=== PATIENT | male | born 1930 | race Caucasian/White ===

== ENCOUNTER 2017-05-04 16:36 | Inpatient (IN) | payer MEDICARE ==
[2017-05-04] VITALS (8 sets, daily range): BP systolic 140–183; BP diastolic 70–89; PULSE 82–93; RESP 16–22; TEMP 98.2–99.1; O2SAT 94–100
[~2017-05-04] VITALS: Ht 182.9 cm; Wt 75.9 kg
[2017-05-04 17:43] LABS: AUTOMATED NEUTROPHIL # 13.3 TH/MM3 (1.8-7.7); BASOPHIL % 0.1 % (0.0-2.0); EOSINOPHIL % 0.1 % (0.0-4.0); HEMATOCRIT 40.9 % (39.0-51.0); HEMO FLAGS DIFF FINAL; LYMPH % 2.7 % (9.0-44.0); LYMPHOCYTE # 0.4 TH/MM3 (1.0-4.8); MEAN CELL VOLUME 109.6 FL (80.0-100.0); MEAN CORPUSCULAR HEMOGLOBIN 35.9 PG (27.0-34.0); MEAN CORPUSCULAR HGB CONC 32.8 % (32.0-36.0); MONO % 6.5 % (0.0-8.0); NEUT % 90.6 % (16.0-70.0); PLATELET COUNT 206 TH/MM3 (150-450); RED BLOOD COUNT 3.73 MIL/MM3 (4.50-5.90); RED CELL DISTRIBUTION WIDTH 14.7 % (11.6-17.2); WHITE BLOOD COUNT 14.7 TH/MM3 (4.0-11.0)
[2017-05-04 17:55] LABS: APTT (PATIENT) 21.5 SEC (24.3-30.1)
[2017-05-04 18:10] LABS: BICARBONATE 15.6 MEQ/L (21.0-32.0)
[2017-05-04] MEDS ORDERED: SODIUM CHLOR 0.9% 1000 ML INJ 1,000 ML IV ONE ×3 (18:15→20:00)
--- NOTE | 2017-05-04 18:21 | PD ---
HPI Chief Complaint: Altered Mental Status Time Seen by Provider: 17:21 Travel History International Travel<30 days: No Contact w/Intl Traveler<30days: No Traveled to known affect area: No History of Present Illness HPI Elderly male who denies any PMH was brought in by [facility] after neighbors called and realize that his garbage had been building up. Pt was found lying prone on his carpet and apparently had been down for 8 days and was found in feces. Pt has broad abrasions on his face, chest, abdomen. Pt denies any complaints but is shivering and said he does not remember what happened. States he lives alone. He is AAOx2 and follows commands but appears very dehydrated. Denies any complaints. PFSH Past Medical History Medical History: Unable to Obtain Tetanus Vaccination: Unknown Past Surgical History Surgical History: Unable to Obtain Social History Alcohol Use: No (UNABLE TO ASSESS) Tobacco Use: No (UNABLE TO ASSESS) Substance Use: No Allergies-Medications (Allergen,Severity, Reaction): Coded Allergies: No Known Allergies (Verified Allergy, Unknown, 05/04/17) Reported Meds & Prescriptions Reported Meds & Active Scripts Active Active Prescriptions or Reported Medications Unobtainable Review of Systems Except as stated in HPI: all other systems reviewed are Neg Physical Exam Narrative GENERAL: Elderly male in mild distress. SKIN: Diffuse erythema and skin break down in chest, abdomen, bilateral ulcer in bilateral knees. Dehydrated. HEAD: Atraumatic. Normocephalic. EYES: Pupils equal and round. No scleral icterus. No injection or drainage. ENT: No nasal bleeding or discharge. Mucous membranes pink and moist. NECK: Trachea midline. No JVD. CARDIOVASCULAR: Regular rate and rhythm. No murmur appreciated. RESPIRATORY: No accessory muscle use. Clear to auscultation. Breath sounds equal bilaterally. GASTROINTESTINAL: Abdomen soft, non-tender, nondistended. MUSCULOSKELETAL: No obvious deformities. No clubbing. No cyanosis. No edema. NEUROLOGICAL: Awake and alert. Moving all extremities. AAOx2. Data Data Last Documented VS Vital Signs Date Time Temp Pulse Resp B/P (MAP) Pulse Ox O2 Delivery O2 Flow Rate FiO2 05/04/17 20:01 84 22 183/81 (115) 100 Nasal Cannula 2.00 05/04/17 17:35 99.1 Orders Orders Urinalysis - C+S If Indicated (05/04/17 17:21) Ct Brain W/O Iv Contrast(Rout) (05/04/17 17:21) Ct Cerv Spine W/O Contrast (05/04/17 17:21) Ct Abd/Pel W Iv Contrast(Rout) (05/04/17 17:21) Ct Thorax/ Chest W Iv Contrast (05/04/17 17:21) Ct Facial Bones W/O Iv Cont (05/04/17 17:21) Complete Blood Count With Diff (05/04/17 17:21) Basic Metabolic Panel (Bmp) (05/04/17 17:21) Prothrombin Time / Inr (Pt) (05/04/17 17:21) Act Partial Throm Time (Ptt) (05/04/17 17:21) Creatine Kinase (Cpk) (05/04/17 17:21) Troponin I (05/04/17 17:23) Electrocardiogram (05/04/17 ) Blood Culture (05/04/17 18:11) Lactic Acid Sepsis Protocol (05/04/17 18:11) Sodium Chlor 0.9% 1000 Ml Inj (Ns 1000 M (05/04/17 18:15) Protein Corrected Calcium(Pcc) (05/04/17 17:30) Sodium Chlor 0.9% 1000 Ml Inj (Ns 1000 M (05/04/17 18:30) Calcium Gluconate Inj (Calcium Gluconate (05/04/17 18:30) Potassium Chlor 20 Meq Premix (Kcl 20 Me (05/04/17 18:32) Potassium Chloride Eff (K-Lyte Cl Eff) (05/04/17 18:45) Magnesium (Mg) (05/04/17 18:32) Iohexol 350 Inj (Omnipaque 350 Inj) (05/04/17 19:09) Sodium Chlor 0.9% 1000 Ml Inj (Ns 1000 M (05/04/17 20:00) Sodium Chlor 0.45%... W/Potassium Chlori (05/04/17 21:00) Admit To Inpatient (05/04/17 ) Code Status (05/04/17 19:50) Vital Signs (Adult) MAXI.Q1H (05/04/17 19:50) Activity Bed Rest (05/04/17 19:50) Diet Npo (05/05/17 Breakfast) Sodium Chloride 0.9% Flush (Ns Flush) (05/04/17 20:00) Sodium Chloride 0.9% Flush (Ns Flush) (05/04/17 21:00) Acetaminophen (Tylenol) (05/04/17 20:00) Pantoprazole Inj (Protonix Inj) (05/05/17 09:00) Albuterol-Ipratropium Neb (Duoneb Neb) (05/04/17 20:00) Complete Blood Count With Diff (05/05/17 04:00) Comprehensive Metabolic Panel (05/05/17 04:00) Magnesium (Mg) (05/05/17 04:00) Hospice Aide / Telemetry MAXI.Q8H (05/04/17 19:50) Enoxaparin Inj (Lovenox Inj) (05/04/17 20:00) Scd Bilateral/Knee High MAXI.BID (05/04/17 19:50) ^ Initiate Protocol (05/04/17 19:50) Instruction (05/04/17 19:50) [facility] Information (05/04/17 20:00) Chlorhexidine 2% Cloth (Chlorhexidine 2% (05/05/17 04:00) Chlorhexidine 2% Cloth (Chlorhexidine 2% (05/04/17 20:00) Mrsa Pcr Surveillance (05/04/17 19:50) Lactulose Liq (Lactulose Liq) (05/04/17 20:00) Inpatient Certification (05/04/17 ) Thyroid Stimulating Hormone (05/04/17 19:54) Vitamin B12 (05/04/17 19:54) Rbc Folate (05/04/17 19:54) Complete Blood Count With Diff (05/04/17 22:00) Comprehensive Metabolic Panel (05/04/17 22:00) Magnesium (Mg) (05/04/17 22:00) Ceftriaxone Inj (Rocephin Inj) (05/04/17 20:00) Admit Order (Ed Use Only) (05/04/17 ) Troponin I (05/04/17 22:00) Labs Laboratory Tests Test 05/04/17 17:30 05/04/17 17:50 05/04/17 18:25 White Blood Count 14.7 TH/MM3 Red Blood Count 3.73 MIL/MM3 Hemoglobin 13.4 GM/DL Hematocrit 40.9 % Mean Corpuscular Volume 109.6 FL Mean Corpuscular Hemoglobin 35.9 PG Mean Corpuscular Hemoglobin Concent 32.8 % Red Cell Distribution Width 14.7 % Platelet Count 206 TH/MM3 Mean Platelet Volume 9.0 FL Neutrophils (%) (Auto) 90.6 % Lymphocytes (%) (Auto) 2.7 % Monocytes (%) (Auto) 6.5 % Eosinophils (%) (Auto) 0.1 % Basophils (%) (Auto) 0.1 % Neutrophils # (Auto) 13.3 TH/MM3 Lymphocytes # (Auto) 0.4 TH/MM3 Monocytes # (Auto) 1.0 TH/MM3 Eosinophils # (Auto) 0.0 TH/MM3 Basophils # (Auto) 0.0 TH/MM3 CBC Comment DIFF FINAL Differential Comment Prothrombin Time 11.0 SEC Prothromb Time International Ratio 1.0 RATIO Activated Partial Thromboplast Time 21.5 SEC Blood Urea Nitrogen 66 MG/DL Creatinine 1.46 MG/DL Random Glucose 76 MG/DL Total Protein 3.8 GM/DL Calcium Level 5.6 MG/DL Sodium Level 163 MEQ/L Potassium Level 2.3 MEQ/L Chloride Level 136 MEQ/L Carbon Dioxide Level 15.6 MEQ/L Anion Gap 11 MEQ/L Estimat Glomerular Filtration Rate 42 ML/MIN Protein Corrected Calcium 7.1 MG/DL Magnesium Level 1.6 MG/DL Total Creatine Kinase 234 U/L Troponin I 0.20 NG/ML Urine Color YELLOW Urine Turbidity HAZY Urine pH 5.5 Urine Specific [place] 1.021 Urine Protein 30 mg/dL Urine Glucose (UA) NEG mg/dL Urine Ketones TRACE mg/dL Urine Occult Blood NEG Urine Nitrite NEG Urine Bilirubin NEG Urine Urobilinogen 2.0 MG/DL Urine Leukocyte Esterase NEG Urine RBC 1 /hpf Urine WBC 2 /hpf Urine Bacteria NONE /hpf Urine Hyaline Casts 3 /lpf Urine Mucus FEW /lpf Microscopic Urinalysis Comment CULT NOT INDICATED Lactic Acid Level 2.0 mmol/L [facility] Medical Decision Making Medical Screen Exam Complete: Yes Emergency Medical Condition: Yes Interpretation(s) EKG: NSR 88bpm. Normal axis. ST segment depression diffusely. Differential Diagnosis Elder abuse vs. dehydration vs. UTI vs. electrolyte abnormality vs. rhabdomyolysis Narrative Course Elderly male found prone on the carpet by [facility] covered with feces. Pt lives by himself and is AAOx2, following commands but shivering and appears very dehydrated. Labs reviewed, leukocytosis at 14.7. Troponin elevated at 0.20. Pt denies any chest pain. Pt given NS IVF with some improvement of mental status so a second NS IVF ordered. No fever or tachycardia here. Pt also with severe hypokalemia, hypocalcemia and hypernatremia. Pt given potassium and calcium replacement. Pt signed out to next team to follow up CT scans and admit. Critical Care Narrative Aggregate critical care time was 35 minutes. Time to perform other separately billable procedures was not included in the critical care time. My time did not include minutes spent treating any other patients simultaneously or on activities that did not directly contribute to the patient's treatment. The services I provided to this patient were to treat and/or prevent clinically significant deterioration that could result in: cardiovascular collapse or . I provided critical care services requiring my management, as noted below: Chart data review, documentation time, medication orders and management, vital sign assessments/reviewing monitor data, ordering and reviewing lab tests, ordering and interpreting/reviewing x-rays and diagnostic studies, care of the patient and discussion of the patient with the admitting physicians. Diagnosis Primary Impression: Altered mental status Qualified Codes: R41.82 - Altered mental status, unspecified Additional Impression: Severe hypernatremia Admitting Information Admitting Physician Requests: Admit Scripts Unable to Obtain Active Prescriptions or Reported Meds Mamie Aguilar DO May 04, 2017 18:21
[2017-05-04 18:23] LABS: BLOOD, URINE NEG (NEG); COMMENT (UR) CULT NOT INDICATED; CULTURE IF INDICATED CULT NOT INDICATED; GLUCOSE,URINE NEG (NEG); HYALINE CAST, URINE 3 /lpf (RARE); KETONE, URINE TRACE mg/dL (NEG); MUCUS URINE FEW /lpf (OCC); NITRITE,URINE NEG (NEG); PH, URINE 5.5 (5.0-8.5); URINE COLOR YELLOW (YELLW/STRAW)
[2017-05-04] MEDS ORDERED: CALCIUM GLUCONATE INJ 1 GM in DEXTROSE 5% IN WATER 100ML INJ 100 ML IV ONE ×2 (18:30)
[2017-05-04 18:31] LABS: CALCIUM-PROTEIN CORRECTED 7.1 MG/DL (8.5-10.1); POTASSIUM 2.3 MEQ/L (3.5-5.1)
[2017-05-04] MEDS ORDERED: POTASSIUM CHLOR 20 MEQ PREMIX 100 ML IV STA (18:32)
[2017-05-04] MEDS ORDERED: POTASSIUM CHLORIDE 25 MEQ EFFERVESCENT TAB PO ONE (18:45)
--- NOTE | 2017-05-04 18:53 | RADRPT ---
EXAM DATE/TIME: 05/04/2017 18:46 [facility] COMPARISON: No previous studies available for comparison. INDICATIONS : Trauma, possible fall. RADIATION DOSE: 55.94 CTDIvol (mGy) MEDICAL HISTORY : Non-responsive. SURGICAL HISTORY : Non-responsive. ENCOUNTER: Initial ACUITY: 1 day PAIN SCALE: Non-responsive LOCATION: Bilateral head TECHNIQUE: Multiple contiguous axial images were obtained of the head. Using automated exposure control and adj ustment of the mA and/or kV according to patient size, radiation dose was kept as low as reasonably a chievable to obtain optimal diagnostic quality images. DICOM format image data is available electro nically for review and comparison. FINDINGS: CEREBRUM: The ventricles are normal for age. No evidence of midline shift, mass lesion, hemorrhage or acute in farction. No extra-axial fluid collections are seen. Chronic low attenuation seen in the periventric ular white matter. POSTERIOR FOSSA: The cerebellum and brainstem are intact. The 4th ventricle is midline. The cerebellopontine angle i s unremarkable. EXTRACRANIAL: The visualized portion of the orbits is intact. SKULL: The calvaria is intact. No evidence of skull fracture. CONCLUSION: No acute intracranial abnormality. Chronic white matter changes. Edgar Bae MD on May 04, 2017 at 18:51 Board Certified Radiologist. This report was verified electronically.
--- NOTE | 2017-05-04 19:05 | RADRPT ---
EXAM DATE/TIME: 05/04/2017 18:46 [facility] COMPARISON: No previous studies available for comparison. INDICATIONS : Trauma, possible fall. RADIATION DOSE: 28.48 CTDIvol (mGy) MEDICAL HISTORY : Non-responsive. SURGICAL HISTORY : Non-responsive. ENCOUNTER: Initial ACUITY: 1 day PAIN SCALE: Non-responsive LOCATION: Bilateral neck TECHNIQUE: Volumetric scanning of the cervical spine was performed. Multiplanar reconstructions in the sagittal, coronal and oblique axial planes were performed. Using automated exposure control and adjustment o f the mA and/or kV according to patient size, radiation dose was kept as low as reasonably achievable to obtain optimal diagnostic quality images. DICOM format image data is available electronically f or review and comparison. FINDINGS: There is no fracture or subluxation of the cervical spine. Diffuse uncovertebral and facet osteoarthr itis noted. There is severe disc space narrowing at each level from C3/C4-T1/T2 is well. Severe osteo arthritis seen anteriorly at C1/C2. Paravertebral soft tissues are within normal limits. CONCLUSION: Severe multilevel degenerative changes. No fracture or subluxation of the cervical spine. Edgar Bae MD on May 04, 2017 at 19:03 Board Certified Radiologist. This report was verified electronically.
--- NOTE | 2017-05-04 19:07 | RADRPT ---
EXAM DATE/TIME: 05/04/2017 18:46 [facility] COMPARISON: No previous studies available for comparison. INDICATIONS : Trauma, possible fall. RADIATION DOSE: 64.31 CTDIvol (mGy) MEDICAL HISTORY : Non-responsive. SURGICAL HISTORY : Non-responsive. ENCOUNTER: Initial ACUITY: 1 day PAIN SCORE: Non-responsive LOCATION: Bilateral face TECHNIQUE: Volumetric scanning of the facial bones was performed. Using automated exposure control and adjustme nt of the mA and/or kV according to patient size, radiation dose was kept as low as reasonably achiev able to obtain optimal diagnostic quality images. DICOM format image data is available electronicclassmarkets y for review and comparison. FINDINGS: ORBITS: The orbital and infraorbital osseous structures are intact. The retroconal structures have a normal configuration. No radiopaque foreign bodies are seen. NASAL BONE: The nasal bone and maxillary spine are intact ZYGOMATIC ARCHES: Symmetric without evidence of fracture. SINUSES: Mild mucoperiosteal thickening noted, mostly the maxillary air cells. No blood in the sinuses. NASAL CAVITY: The nasal septum is intact and midline. The lacrimal ducts are intact. SOFT TISSUES: No radiopaque foreign bodies seen. No soft-tissue swelling is seen. INTRACRANIAL: No intracranial air seen. CRIBIFORM PLATE: Grossly intact. CONCLUSION: Intact facial bones. Mild, chronic-appearing maxillary sinusitis. Edgar Bae MD on May 04, 2017 at 19:05 Board Certified Radiologist. This report was verified electronically.
[2017-05-04] MEDS ORDERED: IOHEXOL 350 MG/ML 10 ML VIAL (for RAD DIAG) IV PUSH ONE (19:09)
--- NOTE | 2017-05-04 19:13 | RADRPT ---
EXAM DATE/TIME: 05/04/2017 18:54 [facility] COMPARISON: No previous studies available for comparison. INDICATIONS : Trauma, possible fall. IV CONTRAST: 80 cc Omnipaque 350 (iohexol) IV ; Cumulative dose for multiple exams. ORAL CONTRAST: No oral contrast ingested. RADIATION DOSE: 14.08 CTDIvol (mGy) ; Combined studies - Thorax/Abdomen/Pelvis MEDICAL HISTORY : Non-responsive. SURGICAL HISTORY : Non-responsive. ENCOUNTER: Initial ACUITY: 1 day PAIN SCALE: Non-responsive LOCATION: Bilateral abdomen TECHNIQUE: Volumetric scanning of the abdomen and pelvis was performed. Using automated exposure control and ad justment of the mA and/or kV according to patient size, radiation dose was kept as low as reasonably achievable to obtain optimal diagnostic quality images. DICOM format image data is available electro nically for review and comparison. FINDINGS: LOWER LUNGS: The visualized lower lungs are clear. LIVER: Homogeneous fatty density without lesion. There is no dilation of the biliary tree. No calcified ga llstones. SPLEEN: Normal size without lesion. PANCREAS: Within normal limits. KIDNEYS: Normal in size and shape. There is no mass, stone or hydronephrosis. ADRENAL GLANDS: Within normal limits. VASCULAR: Tortuous abdominal aorta and iliac arteries. No aneurysm. BOWEL/MESENTERY: The stomach, small bowel, and colon demonstrate no acute abnormality. There is no free intraperitone al air or fluid. ABDOMINAL WALL: Within normal limits. RETROPERITONEUM: There is no lymphadenopathy. BLADDER: Catheter present. Grossly unremarkable. REPRODUCTIVE: Within normal limits. INGUINAL: There is no lymphadenopathy or hernia. MUSCULOSKELETAL: No acute bony abnormality demonstrated. CONCLUSION: 1. No evidence of acute injury of the abdomen or pelvis. 2. Mild fatty infiltration of the liver. Edgar Bae MD on May 04, 2017 at 19:10 Board Certified Radiologist. This report was verified electronically.
--- NOTE | 2017-05-04 19:15 | RADRPT ---
EXAM DATE/TIME: 05/04/2017 18:54 [facility] COMPARISON: No previous studies available for comparison. INDICATIONS : Trauma, possible fall. IV CONTRAST: 80 cc Omnipaque 350 (iohexol) IV ; Cumulative dose for multiple exams. RADIATION DOSE: 14.08 CTDIvol (mGy) ; Combined studies - Thorax/Abdomen/Pelvis MEDICAL HISTORY : Non-responsive. SURGICAL HISTORY : Non-responsive. ENCOUNTER: Initial ACUITY: 1 day PAIN SCALE: Non-responsive LOCATION: Bilateral chest TECHNIQUE: Volumetric scanning of the chest was performed. Using automated exposure control and adjustment of t he mA and/or kV according to patient size, radiation dose was kept as low as reasonably achievable to obtain optimal diagnostic quality images. DICOM format image data is available electronically for review and comparison. Follow-up recommendations for detected pulmonary nodules are based at a minimum on nodule size and pa tient risk factors according to Fleischner Society Guidelines. FINDINGS: LUNGS: Trace left base atelectasis. PLEURA: There is no pleural thickening or pleural effusion. MEDIASTINUM: The heart and great vessels demonstrate no acute abnormality. There is no mediastinal or hilar lymph adenopathy. There is left and right side coronary artery calcification. AXILLAE: Within normal limits. No lymphadenopathy. SKELETAL: Within normal limits for patient age. MISCELLANEOUS: The visualized upper abdominal organs demonstrate no acute abnormality. CONCLUSION: No evidence of acute thoracic injury. Trace left base atelectasis. Coronary artery calcification. Edgar Bae MD on May 04, 2017 at 19:13 Board Certified Radiologist. This report was verified electronically.
--- NOTE | 2017-05-04 19:59 | HHI.HP ---
[facility] Service Critical Care Medicine Primary Care Physician Unknown Admission Diagnosis Diagnosis: (1) Severe hypernatremia Diagnosis: Principal (2) Severe hypokalemia Diagnosis: Principal (3) Severe dehydration Diagnosis: Principal (4) Acute kidney failure Diagnosis: Principal (5) Hypocalcemia Diagnosis: Principal (6) Hypomagnesemia Diagnosis: Principal (7) Probable sepsis Diagnosis: Principal (8) Altered mental status Diagnosis: Principal (9) Leukocytosis Diagnosis: Principal (10) Metabolic acidosis Diagnosis: Principal Chief Complaint: AMS Severe dehydration Travel History International Travel<30 Days: No Contact w/Intl Traveler <30 Da: No Traveled to Known Affected Are: No Sepsis Criteria SIRS Criteria (2 or more): RR > 20 or PaCO2 < 32, WBC > 87958, < 4000 or > 10 % bands Severe Sepsis (+one): Acute Oliguria/Renal Failure Criteria Outcome: Meets SIRS criteria History of Present Illness History is obtained from Dr. Bruce Young and ER documentation. Patient is unable to provide any history Patient is an elderly chronically ill-appearing male who was brought in by EMS after neighbors noticed that his garbage had been accumulating. EMS found him lying prone on carpet probably been down for 7-8 days, he was found in his own feces and urine. He had extensive skin break down is on disability and was very dehydrated, and he lives alone. CT of the head and C-spine was negative. Lab work showed multiple critical abnormalities BUN 66, Creat 1.46, Calcium 5.6, Na 163, K 2.3, Bicarb 15.6, and trop 0.2. White count was elevated at 14.7 with left shift. Critical care was consulted for admission I evaluated the patient in the ED. He appears to be in moderate distress tremulous, incomprehensible words. There is extensive skin break down with erythema and deep tissue injury on face, chest, anterior abdomen, bilateral knees and bilateral knees with areas of black eschar formation. Skin and mucosa very dry. Patient is receiving his first normal saline bolus. I have ordered additional 2 L normal saline bolus and maintenance fluid 1/2 NS with 40 KCL at 150 ML per hour. Also started him on Rocephin and multivitamin supplements. He has developed multiorgan failure and prognosis is guarded at this time Review of Systems ROS Limitations: Altered Mental Status Past Family Social History Allergies: Coded Allergies: No Known Allergies (Verified Allergy, Unknown, 05/04/17) Past Medical History Unable to obtain Past Surgical History Unable to obtain Reported Medications Unable to obtain Active Ordered Medications Reviewed Family History Unable to obtain Social History Unable to obtain Physical Exam Vital Signs Vital Signs Date Time Temp Pulse Resp B/P (MAP) Pulse Ox O2 Delivery O2 Flow Rate FiO2 05/04/17 18:38 93 16 156/70 (98) 99 Nasal Cannula 2.00 05/04/17 17:38 87 22 155/77 (103) 100 Nasal Cannula 2.00 05/04/17 17:35 99.1 91 22 155/77 (103) 99 Physical Exam GENERAL: Elderly male in moderate distress. Tremulous. He is acute and chronicall ill SKIN: Extensive skin break down erythema and deep tissue injury on face lower chest, anterior abdomen, bilateral knees and bilateral knees. Multiple areas of black eschar formation. Skin very dry HEAD: Atraumatic. Normocephalic. EYES: Pupils equal and round. No scleral icterus. Positive arcus senilis ENT: No nasal bleeding or discharge. Mucous membranes dry NECK: Trachea midline. No JVD. CARDIOVASCULAR: Tachycardic hypertensive. No murmur appreciated. Sinus rhythm on EKG RESPIRATORY: No accessory muscle use. Clear to auscultation. Breath sounds equal bilaterally. GASTROINTESTINAL: Abdomen soft, non-tender, nondistended. Multiple areas of deep tissue injury MUSCULOSKELETAL: Extensive skin breakdown with deep tissue injury bilateral lower extremities, black eschars noted on bilateral knee and ankle NEUROLOGICAL: Patient is awake, opens eyes, tremulous. Mumbles words, but incomprehensible. He attempts to say his name. GCS 10 Laboratory Laboratory Tests Test 05/04/17 17:30 05/04/17 17:50 05/04/17 18:25 White Blood Count 14.7 Red Blood Count 3.73 Hemoglobin 13.4 Hematocrit 40.9 Mean Corpuscular Volume 109.6 Mean Corpuscular Hemoglobin 35.9 Mean Corpuscular Hemoglobin Concent 32.8 Red Cell Distribution Width 14.7 Platelet Count 206 Mean Platelet Volume 9.0 Neutrophils (%) (Auto) 90.6 Lymphocytes (%) (Auto) 2.7 Monocytes (%) (Auto) 6.5 Eosinophils (%) (Auto) 0.1 Basophils (%) (Auto) 0.1 Neutrophils # (Auto) 13.3 Lymphocytes # (Auto) 0.4 Monocytes # (Auto) 1.0 Eosinophils # (Auto) 0.0 Basophils # (Auto) 0.0 CBC Comment DIFF FINAL Differential Comment Prothrombin Time 11.0 Prothromb Time International Ratio 1.0 Activated Partial Thromboplast Time 21.5 Blood Urea Nitrogen 66 Creatinine 1.46 Random Glucose 76 Total Protein 3.8 Calcium Level 5.6 Sodium Level 163 Potassium Level 2.3 Chloride Level 136 Carbon Dioxide Level 15.6 Anion Gap 11 Estimat Glomerular Filtration Rate 42 Protein Corrected Calcium 7.1 Magnesium Level 1.6 Total Creatine Kinase 234 Troponin I 0.20 Urine Color YELLOW Urine Turbidity HAZY Urine pH 5.5 Urine Specific [place] 1.021 Urine Protein 30 Urine Glucose (UA) NEG Urine Ketones TRACE Urine Occult Blood NEG Urine Nitrite NEG Urine Bilirubin NEG Urine Urobilinogen 2.0 Urine Leukocyte Esterase NEG Urine RBC 1 Urine WBC 2 Urine Bacteria NONE Urine Hyaline Casts 3 Urine Mucus FEW Microscopic Urinalysis Comment CULT NOT INDICATED Lactic Acid Level 2.0 Date/Time Source Procedure Growth Status 05/04/17 18:25 Blood Peripheral Aerobic Blood Culture Pending Received 05/04/17 18:25 Blood Peripheral Anaerobic Blood Culture Pending Received Result Diagram: 05/04/17 1730 05/04/[address] chest abdomen pelvis and brain and C-spine without any acute findings Septic Shock Reassessment Heart: Regular rate and rhythm Lungs: Clear Skin: Cold, Dry Peripheral Pulses: Bounding Right Radial Bounding Left Radial Capillary Refill: >2 seconds Caprini VTE Risk Assessment Caprini VTE Risk Assessment: Mod/High Risk (score >= 2) Caprini Risk Assessment Model Point Value = 1 Point Value = 2 Point Value = 3 Point Value = 5 Age 41-60 Minor surgery BMI > 25 kg/m2 Swollen legs Varicose veins or History of unexplained or recurrent spontaneous Oral contraceptives or hormone replacement Sepsis (< 1 month) Serious lung disease, including pneumonia (< 1 month) Abnormal pulmonary function Acute myocardial infarction Congestive heart failure (< 1 month) History of inflammatory bowel disease Medical patient at bed rest Age 61-74 Arthroscopic surgery Major open surgery (> 45 min) Laparoscopic surgery (> 45 min) Malignancy Confined to bed (> 72 hours) Immobilizing plaster cast Central venous access Age >= 75 History of VTE Family history of VTE Factor V Leiden Prothrombin [id number] Lupus anticoagulant Anticardiolipin antibodies Elevated serum homocysteine Heparin-induced thrombocytopenia Other congenital or acquired thrombophilia Stroke (< 1 month) Elective arthroplasty Hip, pelvis, or leg fracture Acute spinal cord injury (< 1 month) Prophylaxis Regimen Total Risk Factor Score Risk Level Prophylaxis Regimen 0-1 Low Early ambulation 2 Moderate Order ONE of the following: *Sequential Compression Device (SCD) *Heparin 5000 units SQ BID 3-4 Higher Order ONE of the following medications: *Heparin 5000 units SQ TID *Enoxaparin/Lovenox 40 mg SQ daily (WT < 150 kg, CrCl > 30 mL/min) *Enoxaparin/Lovenox 30 mg SQ daily (WT < 150 kg, CrCl > 10-29 mL/min) *Enoxaparin/Lovenox 30 mg SQ BID (WT < 150 kg, CrCl > 30 mL/min) AND/OR *Sequential Compression Device (SCD) 5 or more Highest Order ONE of the following medications: *Heparin 5000 units SQ TID (Preferred with Epidurals) *Enoxaparin/Lovenox 40 mg SQ daily (WT < 150 kg, CrCl > 30 mL/min) *Enoxaparin/Lovenox 30 mg SQ daily (WT < 150 kg, CrCl > 10-29 mL/min) *Enoxaparin/Lovenox 30 mg SQ BID (WT < 150 kg, CrCl > 30 mL/min) AND *Sequential Compression Device (SCD) Assessment and Plan Assessment and Plan NEURO: Acute metabolic encephalopathy - Altered mental status secondary to severe dehydration hyponatremia, probable sepsis - CT head was negative - Recommend multivitamin and folate. Patient is at risk for nutritional deficiencies RESP: Respiratory insufficiency - Nasal cannula oxygen - DuoNeb every 6 hours when necessary CV: Sinus tachycardia Severe dehydration Hypertension Mild troponin elevation most likely from renal failure - Normal saline IV fluids 3L bolus. Maintenance IV fluid 1/2 normal saline with 40 meq KCL at 150 ML per hour - Maintenance IV fluid with, await 2d echo, cardiology consult, repeat troponin - Hydralazine 20 mg IV every 4 hours when necessary for SBP more than 170 GI: - Nothing by mouth, IV Protonix : Acute kidney failure Severe dehydration Hypernatremia - Monitor renal function closely. Anders catheter. Acute renal failure most from severe dehydration - Renal failure workup indicated all the patient does not sufficiently improved with IV hydration - Normal saline IV fluids 3L bolus. Maintenance IV fluid 1/2 normal saline with 40 meq KCL at 150 ML per hour ID/SKIN: Extensive deep tissue injury Probable sepsis - Blood cultures have been sent. Start Rocephin 1 g IV every 24 hours - Wound care consult Ordered HEME: Macrocytic anemia Leukocytosis - Monitor CBC, CMP, coags - Check B12 folate and TSH ENDO: Hypokalemia, hypocalcemia, hypomagnesemia - Electrolyte replacement per protocol PROPH: - Bilateral lower extremity SCDs. Lovenox/Protonix LINES: - Utilize peripheral IVs, central line if needed CC time 66 min Patient is critically ill at this time with severe metabolic encephalopathy, multiorgan dysfunction with severe dehydration, renal failure, multiple electrolyte abnormalities and severe deep tissue injury. Leukocytosis concerning for probable sepsis as well. Prognosis guarded at this time Code Status Full Discussed Condition With Dr. Young Problem Qualifiers (1) Acute kidney failure: Qualified Codes: N17.9 - Acute kidney failure, unspecified (2) Altered mental status: Qualified Codes: R41.82 - Altered mental status, unspecified (3) Leukocytosis: Qualified Codes: D72.829 - Elevated white blood cell count, unspecified Marshall Hernández MD May 04, 2017 19:59
[2017-05-04] MEDS ORDERED: RESP: ALBUTEROL 2.5 MG/IPRATROPIUM 0.5 MG NEB (PRN) INH (20:00)
[2017-05-04] MEDS ORDERED: LACTULOSE SYRUP 20 GM/30 ML CUP PO PRN (20:00)
[2017-05-04] MEDS ORDERED: CHLORHEXIDINE GLUCONATE 2 % 1 PACK (2 CLOTHS) TOP PRN (20:00)
[2017-05-04] MEDS ORDERED: SODIUM CHLORIDE 0.9% FLUSH 10 ML FLUSH IV FLUSH PRN (20:00)
[2017-05-04] MEDS ORDERED: MISCELLANEOUS NURSING INFORMATION XX SCH (20:00)
--- NOTE | 2017-05-04 20:09 | PD ---
Data Data Last Documented VS Vital Signs Date Time Temp Pulse Resp B/P (MAP) Pulse Ox O2 Delivery O2 Flow Rate FiO2 05/04/17 20:01 84 22 183/81 (115) 100 Nasal Cannula 2.00 05/04/17 17:35 99.1 Orders Orders Urinalysis - C+S If Indicated (05/04/17 17:21) Ct Brain W/O Iv Contrast(Rout) (05/04/17 17:21) Ct Cerv Spine W/O Contrast (05/04/17 17:21) Ct Abd/Pel W Iv Contrast(Rout) (05/04/17 17:21) Ct Thorax/ Chest W Iv Contrast (05/04/17 17:21) Ct Facial Bones W/O Iv Cont (05/04/17 17:21) Complete Blood Count With Diff (05/04/17 17:21) Basic Metabolic Panel (Bmp) (05/04/17 17:21) Prothrombin Time / Inr (Pt) (05/04/17 17:21) Act Partial Throm Time (Ptt) (05/04/17 17:21) Creatine Kinase (Cpk) (05/04/17 17:21) Troponin I (05/04/17 17:23) Electrocardiogram (05/04/17 ) Blood Culture (05/04/17 18:11) Lactic Acid Sepsis Protocol (05/04/17 18:11) Sodium Chlor 0.9% 1000 Ml Inj (Ns 1000 M (05/04/17 18:15) Protein Corrected Calcium(Pcc) (05/04/17 17:30) Sodium Chlor 0.9% 1000 Ml Inj (Ns 1000 M (05/04/17 18:30) Calcium Gluconate Inj (Calcium Gluconate (05/04/17 18:30) Potassium Chlor 20 Meq Premix (Kcl 20 Me (05/04/17 18:32) Potassium Chloride Eff (K-Lyte Cl Eff) (05/04/17 18:45) Magnesium (Mg) (05/04/17 18:32) Iohexol 350 Inj (Omnipaque 350 Inj) (05/04/17 19:09) Sodium Chlor 0.9% 1000 Ml Inj (Ns 1000 M (05/04/17 20:00) Sodium Chlor 0.45%... W/Potassium Chlori (05/04/17 21:00) Admit To Inpatient (05/04/17 ) Code Status (05/04/17 19:50) Vital Signs (Adult) MAXI.Q1H (05/04/17 19:50) Activity Bed Rest (05/04/17 19:50) Diet Npo (05/05/17 Breakfast) Sodium Chloride 0.9% Flush (Ns Flush) (05/04/17 20:00) Sodium Chloride 0.9% Flush (Ns Flush) (05/04/17 21:00) Acetaminophen (Tylenol) (05/04/17 20:00) Pantoprazole Inj (Protonix Inj) (05/05/17 09:00) Albuterol-Ipratropium Neb (Duoneb Neb) (05/04/17 20:00) Complete Blood Count With Diff (05/05/17 04:00) Comprehensive Metabolic Panel (05/05/17 04:00) Troponin I (05/04/17 19:50) Troponin I (05/05/17 01:50) Magnesium (Mg) (05/05/17 04:00) Top Flavor Attendant / Telemetry MAXI.Q8H (05/04/17 19:50) Enoxaparin Inj (Lovenox Inj) (05/04/17 20:00) Scd Bilateral/Knee High MAXI.BID (05/04/17 19:50) ^ Initiate Protocol (05/04/17 19:50) Instruction (05/04/17 19:50) [facility] [place]05/04/17 20:00) Chlorhexidine 2% Cloth (Chlorhexidine 2% (05/05/17 04:00) Chlorhexidine 2% Cloth (Chlorhexidine 2% (05/04/17 20:00) Mrsa Pcr Surveillance (05/04/17 19:50) Lactulose Liq (Lactulose Liq) (05/04/17 20:00) Inpatient Certification (05/04/17 ) Thyroid Stimulating Hormone (05/04/17 19:54) Vitamin B12 (05/04/17 19:54) Rbc Folate (05/04/17 19:54) Complete Blood Count With Diff (05/04/17 22:00) Comprehensive Metabolic Panel (05/04/17 22:00) Magnesium (Mg) (05/04/17 22:00) Ceftriaxone Inj (Rocephin Inj) (05/04/17 20:00) Potassium, Serum (K) (05/04/17 20:30) Admit Order (Ed Use Only) (05/04/17 ) Labs Laboratory Tests Test 05/04/17 17:30 05/04/17 17:50 05/04/17 18:25 White Blood Count 14.7 TH/MM3 Red Blood Count 3.73 MIL/MM3 Hemoglobin 13.4 GM/DL Hematocrit 40.9 % Mean Corpuscular Volume 109.6 FL Mean Corpuscular Hemoglobin 35.9 PG Mean Corpuscular Hemoglobin Concent 32.8 % Red Cell Distribution Width 14.7 % Platelet Count 206 TH/MM3 Mean Platelet Volume 9.0 FL Neutrophils (%) (Auto) 90.6 % Lymphocytes (%) (Auto) 2.7 % Monocytes (%) (Auto) 6.5 % Eosinophils (%) (Auto) 0.1 % Basophils (%) (Auto) 0.1 % Neutrophils # (Auto) 13.3 TH/MM3 Lymphocytes # (Auto) 0.4 TH/MM3 Monocytes # (Auto) 1.0 TH/MM3 Eosinophils # (Auto) 0.0 TH/MM3 Basophils # (Auto) 0.0 TH/MM3 CBC Comment DIFF FINAL Differential Comment Prothrombin Time 11.0 SEC Prothromb Time International Ratio 1.0 RATIO Activated Partial Thromboplast Time 21.5 SEC Blood Urea Nitrogen 66 MG/DL Creatinine 1.46 MG/DL Random Glucose 76 MG/DL Total Protein 3.8 GM/DL Calcium Level 5.6 MG/DL Sodium Level 163 MEQ/L Potassium Level 2.3 MEQ/L Chloride Level 136 MEQ/L Carbon Dioxide Level 15.6 MEQ/L Anion Gap 11 MEQ/L Estimat Glomerular Filtration Rate 42 ML/MIN Protein Corrected Calcium 7.1 MG/DL Magnesium Level 1.6 MG/DL Total Creatine Kinase 234 U/L Troponin I 0.20 NG/ML Urine Color YELLOW Urine Turbidity HAZY Urine pH 5.5 Urine Specific [place] 1.021 Urine Protein 30 mg/dL Urine Glucose (UA) NEG mg/dL Urine Ketones TRACE mg/dL Urine Occult Blood NEG Urine Nitrite NEG Urine Bilirubin NEG Urine Urobilinogen 2.0 MG/DL Urine Leukocyte Esterase NEG Urine RBC 1 /hpf Urine WBC 2 /hpf Urine Bacteria NONE /hpf Urine Hyaline Casts 3 /lpf Urine Mucus FEW /lpf Microscopic Urinalysis Comment CULT NOT INDICATED Lactic Acid Level 2.0 mmol/L MDM Supervised Visit with JAYY: Yes Narrative Course Approximately 82-year-old man, found down after 8 days being on the ground. Skin breakdown and alarcon to the front of his body. A little bit confused. Moderate dehydration profound dehydration and electrolyte abnormality. No evidence of trauma. Patient given IV fluid hydration, IV potassium, IV calcium. Will be admitted to the ICU. Diagnosis Primary Impression: Severe dehydration Additional Impressions: Severe hypernatremia Severe hypokalemia Admitting Information Admitting Physician Requests: Admit Scripts Unable to Obtain Active Prescriptions or Reported Meds Bird Ayala MD May 04, 2017 20:09
[2017-05-04] MEDS ORDERED: hydrALAZINE HCL 20 MG/ML VIAL IV PUSH PRN (20:30)
[2017-05-04] MEDS ORDERED: POTASSIUM CHLORIDE INJ 40 MEQ in SODIUM CHLOR 0.45% 1000 ML INJ 1,000 ML IV SCH (21:00)
[2017-05-04] MEDS: MULTIVITAMIN INJ 10 ML, THIAMINE INJ 100 MG, FOLIC ACID INJ 1 MG in DEXT 5%-NACL 0.9% 5... IV SCH (22:44)
[2017-05-04] MEDS: SODIUM CHLORIDE 0.9% FLUSH 10 ML FLUSH IV FLUSH SCH (22:59)
[2017-05-04] MEDS: cefTRIAXone INJ 1,000 MG in SODIUM CHLORIDE 0.9% INJ 100 ML IV SCH (23:00)
[2017-05-04] MEDS: ENOXAPARIN SODIUM 30 MG/0.3 ML SYRINGE SQ SCH (23:03)
[2017-05-04 23:10] LABS: ALKALINE PHOSPHATASE 50 U/L (45-117); ALT (GPT) 29 U/L (12-78); ANION GAP 10 MEQ/L (5-15); AST (GOT) 36 U/L (15-37); BICARBONATE 19.2 MEQ/L (21.0-32.0); BLOOD UREA NITROGEN 94 MG/DL (7-18); CHLORIDE 131 MEQ/L (98-107); GLOMERULAR FILTRATION RATE 25 ML/MIN (>89); MAGNESIUM 2.6 MG/DL (1.5-2.5); POTASSIUM 3.9 MEQ/L (3.5-5.1); TOTAL BILIRUBIN ADULT 0.9 MG/DL (0.2-1.0)
[2017-05-04 23:14] LABS: SODIUM (NA) 160 MEQ/L (136-145)
[2017-05-04] MEDS ORDERED: SODIUM CHLOR 0.45% 1000 ML INJ 1,000 ML IV ONE (23:30)
[2017-05-04 23:36] LABS: AUTOMATED NEUTROPHIL # 14.9 TH/MM3 (1.8-7.7); BASOPHIL % 0.2 % (0.0-2.0); EOSINOPHIL % 0.1 % (0.0-4.0); HEMATOCRIT 38.6 % (39.0-51.0); HEMO FLAGS DIFF FINAL; LYMPH % 2.8 % (9.0-44.0); LYMPHOCYTE # 0.5 TH/MM3 (1.0-4.8); MEAN CORPUSCULAR HEMOGLOBIN 35.7 PG (27.0-34.0); MEAN CORPUSCULAR HGB CONC 31.9 % (32.0-36.0); MONO % 7.7 % (0.0-8.0); NEUT % 89.2 % (16.0-70.0); PLATELET COUNT 189 TH/MM3 (150-450); RED BLOOD COUNT 3.45 MIL/MM3 (4.50-5.90); RED CELL DISTRIBUTION WIDTH 15.2 % (11.6-17.2); WHITE BLOOD COUNT 16.7 TH/MM3 (4.0-11.0)
[2017-05-05] VITALS (8 sets, daily range): BP systolic 141–158; BP diastolic 69–85; PULSE 68–84; RESP 16–20; TEMP 97.6–98.3; O2SAT 98–100
[2017-05-05 02:42] LABS: AUTOMATED NEUTROPHIL # 12.9 TH/MM3 (1.8-7.7); BASOPHIL % 0.1 % (0.0-2.0); EOSINOPHIL % 0.1 % (0.0-4.0); HEMATOCRIT 34.7 % (39.0-51.0); LYMPH % 3.2 % (9.0-44.0); LYMPHOCYTE # 0.5 TH/MM3 (1.0-4.8); MEAN CELL VOLUME 112.8 FL (80.0-100.0); MEAN CORPUSCULAR HEMOGLOBIN 35.2 PG (27.0-34.0); MEAN CORPUSCULAR HGB CONC 31.2 % (32.0-36.0); MONO % 6.9 % (0.0-8.0); NEUT % 89.7 % (16.0-70.0); PLATELET COUNT 170 TH/MM3 (150-450); RED BLOOD COUNT 3.08 MIL/MM3 (4.50-5.90); RED CELL DISTRIBUTION WIDTH 15.3 % (11.6-17.2); WHITE BLOOD COUNT 14.4 TH/MM3 (4.0-11.0)
[2017-05-05 02:47] LABS: HEMO FLAGS AUTO DIFF
[2017-05-05 03:09] LABS: ALKALINE PHOSPHATASE 44 U/L (45-117); ALT (GPT) 26 U/L (12-78); ANION GAP 14 MEQ/L (5-15); AST (GOT) 32 U/L (15-37); BICARBONATE 21.5 MEQ/L (21.0-32.0); BLOOD UREA NITROGEN 87 MG/DL (7-18); CHLORIDE 128 MEQ/L (98-107); GLOMERULAR FILTRATION RATE 29 ML/MIN (>89); MAGNESIUM 2.5 MG/DL (1.5-2.5); POTASSIUM 3.5 MEQ/L (3.5-5.1); TOTAL BILIRUBIN ADULT 0.6 MG/DL (0.2-1.0)
[2017-05-05 03:14] LABS: SODIUM (NA) 163 MEQ/L (136-145)
[2017-05-05 03:31] LABS: PLATELET ESTIMATE SMEAR NORMAL (NORMAL); PLATELET MORPHOLOGY NORMAL (NORMAL); SCAN/DIFF AUTO DIFF CONFIRMED
[2017-05-05] MEDS: CHLORHEXIDINE GLUCONATE 2 % 1 PACK (2 CLOTHS) TOP SCH (04:00)
[2017-05-05] MEDS: POTASSIUM CHLORIDE INJ 40 MEQ in DEXTROSE 5% IN WATE 1000ML INJ 1,000 ML IV SCH ×6 (04:23→17:25)
[2017-05-05] MEDS: SODIUM CHLORIDE 0.9% FLUSH 10 ML FLUSH IV FLUSH SCH ×2 (09:19→20:18)
[2017-05-05] MEDS: PANTOPRAZOLE SODIUM 40 MG VIAL IV PUSH SCH (09:19)
[2017-05-05] MEDS: MULTIVITAMIN INJ 10 ML, THIAMINE INJ 100 MG, FOLIC ACID INJ 1 MG in DEXT 5%-NACL 0.9% 5... IV SCH (09:36)
--- NOTE | 2017-05-05 12:56 | EKG ---
Date Performed: 05/04/2017 Time Performed: 17:21:45 PTAGE: 89 years EKG: Sinus rhythm NONSPECIFIC ST & T-WAVE ABNORMALITY BORDERLINE ECG NO PREVIOUS TRACING DOCTOR: Star Braswell Interpretating Date/Time 05/05/2017 12:53:48
--- NOTE | 2017-05-05 16:14 | HHI.CCPN ---
Subjective Remarks/Hospital Course Patient is an elderly chronically ill-appearing male who was brought in by EMS after neighbors noticed that his garbage had been accumulating. EMS found him lying prone on carpet probably been down for 7-8 days, he was found in his own feces and urine. He had extensive skin break down is on disability and was very dehydrated, and he lives alone. CT of the head and C-spine was negative. Lab work showed multiple critical abnormalities BUN 66, Creat 1.46, Calcium 5.6, Na 163, K 2.3, Bicarb 15.6, and trop 0.2. White count was elevated at 14.7 with left shift. Critical care was consulted for admission I evaluated the patient in the ED. He appears to be in moderate distress tremulous, incomprehensible words. There is extensive skin break down with erythema and deep tissue injury on face, chest, anterior abdomen, bilateral knees and bilateral knees with areas of black eschar formation. Skin and mucosa very dry. Patient is receiving his first normal saline bolus. I have ordered additional 2 L normal saline bolus and maintenance fluid 1/2 NS with 40 KCL at 150 ML per hour. Also started him on Rocephin and multivitamin supplements. He has developed multiorgan failure and prognosis is guarded at this time Subjective: 05/05: No acute events overnight. The patient is oriented to name only. Patient noted to be hypernatremic serial sodium being obtained. Swallow study pending in a.m. plan neurology consult, and neuropsychologist consult. Objective Vital Signs Date Time Temp Pulse Resp B/P (MAP) Pulse Ox O2 Delivery O2 Flow Rate FiO2 05/05/17 11:00 98.3 73 16 148/81 (103) 99 05/05/17 09:00 Nasal Cannula 2.00 Intake and Output 05/05/17 05/05/17 05/06/17 08:00 16:00 00:00 Intake Total 2500 ml Output Total 850 ml Balance 1650 ml Result Diagram: 05/05/1720705/05/[address] chest abdomen pelvis and brain and C-spine without any acute findings Objective Remarks GENERAL: Elderly male looking appropriate stated age, oriented to name only. Tremulous. He is acute and chronically ill SKIN: Extensive skin break down erythema and deep tissue injury on face lower chest, anterior abdomen, bilateral knees and bilateral knees. Multiple areas of black eschar formation. Skin very dry HEAD: Atraumatic. Normocephalic. EYES: Pupils equal and round. No scleral icterus. Positive arcus senilis ENT: No nasal bleeding or discharge. Mucous membranes dry NECK: Trachea midline. No JVD. CARDIOVASCULAR: Tachycardic hypertensive. No murmur appreciated. Sinus rhythm on EKG RESPIRATORY: No accessory muscle use. Clear to auscultation. Breath sounds equal bilaterally. GASTROINTESTINAL: Abdomen soft, non-tender, nondistended. Multiple areas of deep tissue injury MUSCULOSKELETAL: Extensive skin breakdown with deep tissue injury bilateral lower extremities, black eschars noted on bilateral knee and ankle NEUROLOGICAL: Patient is awake, opens eyes, tremulous. He attempts to say his name. GCS 14.-Following commands extremely weak 3/5 bilateral upper and lower extremities A/P Assessment and Plan NEURO: Acute metabolic encephalopathy - Altered mental status secondary to severe dehydration hyponatremia, probable sepsis. Patient remains oriented to name only states he does not remember what happened - CT head was negative - Continue multivitamin and folate. Patient is at risk for nutritional deficiencies -Neurology consulted, neuropsychology Dr. Espitia consulted RESP: Respiratory insufficiency - Nasal cannula oxygen - DuoNeb every 6 hours when necessary CV: Sinus tachycardia Severe dehydration Hypertension Mild troponin elevation most likely from renal failure - Normal saline IV fluids 3L bolus. Maintenance IV fluid 1/2 normal saline with 40 meq KCL at 150 ML per hour - Maintenance IV fluid with, await 2d echo, cardiology consult, - troponin down trended - Hydralazine 20 mg IV every 4 hours when necessary for SBP more than 170 GI: - Nothing by mouth, IV Protonix -Obtain swallow study in a.m. : Acute kidney failure Severe dehydration Hypernatremia - Monitor renal function closely. Anders catheter. Acute renal failure most from severe dehydration - Renal failure workup indicated all the patient does not sufficiently improved with IV hydration - Normal saline IV fluids 3L bolus. Maintenance IV fluid 1/2 normal saline with 40 meq KCL at 150 ML per hour -Obtain serial sodium level ID/SKIN: Extensive deep tissue injury Probable sepsis - Blood cultures have been sent. Start Rocephin 1 g IV every 24 hours - Wound care consult Ordered HEME: Macrocytic anemia Leukocytosis - Monitor CBC, CMP, coags - Check B12 folate and TSH ENDO: Hypokalemia, hypocalcemia, hypomagnesemia - Electrolyte replacement per protocol PROPH: - Bilateral lower extremity SCDs. Lovenox/Protonix LINES: - Utilize peripheral IVs, central line if needed Dispo: Level 3 Patient is critically ill at this time with severe metabolic encephalopathy, multiorgan dysfunction with severe dehydration, renal failure, multiple electrolyte abnormalities and severe deep tissue injury. Leukocytosis concerning for probable sepsis as well. Prognosis guarded at this time Physician Vita Edwards MD May 05, 2017 16:14
[2017-05-05] MEDS: cefTRIAXone INJ 1,000 MG in SODIUM CHLORIDE 0.9% INJ 100 ML IV SCH (20:17)
[2017-05-05] MEDS: ENOXAPARIN SODIUM 30 MG/0.3 ML SYRINGE SQ SCH (20:17)
[2017-05-06] VITALS (8 sets, daily range): BP systolic 122–164; BP diastolic 66–88; PULSE 69–83; RESP 16–21; TEMP 97.9–98.4; O2SAT 20–99
[2017-05-06] MEDS: POTASSIUM CHLORIDE INJ 40 MEQ in DEXTROSE 5% IN WATE 1000ML INJ 1,000 ML IV SCH ×6 (00:27→16:52)
[2017-05-06] MEDS: CHLORHEXIDINE GLUCONATE 2 % 1 PACK (2 CLOTHS) TOP SCH (04:00)
[2017-05-06 06:07] LABS: HEMATOCRIT 33.4 % (39.0-51.0); MEAN CELL VOLUME 109.5 FL (80.0-100.0); MEAN CORPUSCULAR HEMOGLOBIN 35.6 PG (27.0-34.0); MEAN CORPUSCULAR HGB CONC 32.5 % (32.0-36.0); PLATELET COUNT 147 TH/MM3 (150-450); RED BLOOD COUNT 3.05 MIL/MM3 (4.50-5.90); RED CELL DISTRIBUTION WIDTH 13.9 % (11.6-17.2); REVIEW FLAG FINAL; WHITE BLOOD COUNT 9.5 TH/MM3 (4.0-11.0)
[2017-05-06 06:24] LABS: BICARBONATE 20.1 MEQ/L (21.0-32.0); POTASSIUM 4.1 MEQ/L (3.5-5.1)
[2017-05-06 06:41] LABS: CALCIUM-PROTEIN CORRECTED 8.5 MG/DL (8.5-10.1)
[2017-05-06] MEDS: SODIUM CHLORIDE 0.9% FLUSH 10 ML FLUSH IV FLUSH SCH ×2 (09:20→20:57)
[2017-05-06] MEDS: PANTOPRAZOLE SODIUM 40 MG VIAL IV PUSH SCH (09:21)
[2017-05-06] MEDS: MULTIVITAMIN INJ 10 ML, THIAMINE INJ 100 MG, FOLIC ACID INJ 1 MG in DEXT 5%-NACL 0.9% 5... IV SCH (10:11)
--- NOTE | 2017-05-06 11:11 | HHI.CCPN ---
Subjective Remarks/Hospital Course Patient is an elderly chronically ill-appearing male who was brought in by EMS after neighbors noticed that his garbage had been accumulating. EMS found him lying prone on carpet probably been down for 7-8 days, he was found in his own feces and urine. He had extensive skin break down is on disability and was very dehydrated, and he lives alone. CT of the head and C-spine was negative. Lab work showed multiple critical abnormalities BUN 66, Creat 1.46, Calcium 5.6, Na 163, K 2.3, Bicarb 15.6, and trop 0.2. White count was elevated at 14.7 with left shift. Critical care was consulted for admission I evaluated the patient in the ED. He appears to be in moderate distress tremulous, incomprehensible words. There is extensive skin break down with erythema and deep tissue injury on face, chest, anterior abdomen, bilateral knees and bilateral knees with areas of black eschar formation. Skin and mucosa very dry. Patient is receiving his first normal saline bolus. I have ordered additional 2 L normal saline bolus and maintenance fluid 1/2 NS with 40 KCL at 150 ML per hour. Also started him on Rocephin and multivitamin supplements. He has developed multiorgan failure and prognosis is guarded at this time Subjective: 05/05: No acute events overnight. The patient is oriented to name only. Patient noted to be hypernatremic serial sodium being obtained. Swallow study pending in a.m. plan neurology consult, and neuropsychologist consult. 05/06: No acute events overnight. Will status unchanged patient alert to self only still extremely weak. Diet advance this a.m. after evaluation by speech therapy. Cognitive evaluation pending. Objective Vital Signs Date Time Temp Pulse Resp B/P (MAP) Pulse Ox O2 Delivery O2 Flow Rate FiO2 05/06/17 07:46 94 Nasal Cannula 2.00 05/06/17 07:15 97.9 75 20 126/66 (86) Intake and Output 05/06/17 05/06/17 05/07/17 08:00 16:00 00:00 Intake Total 1800 ml Output Total 750 ml Balance 1050 ml Result Diagram: 05/06/17 0505/06/[address] chest abdomen pelvis and brain and C-spine without any acute findings Objective Remarks GENERAL: Elderly male looking appropriate stated age, oriented to name only. Tremulous. He is acute and chronically ill SKIN: Extensive skin break down erythema and deep tissue injury on face lower chest, anterior abdomen, bilateral knees and bilateral knees. Multiple areas of black eschar formation. Skin very dry HEAD: Atraumatic. Normocephalic. EYES: Pupils equal and round. No scleral icterus. Positive arcus senilis ENT: No nasal bleeding or discharge. Mucous membranes dry NECK: Trachea midline. No JVD. CARDIOVASCULAR: Tachycardic hypertensive. No murmur appreciated. Sinus rhythm on EKG RESPIRATORY: No accessory muscle use. Clear to auscultation. Breath sounds equal bilaterally. GASTROINTESTINAL: Abdomen soft, non-tender, nondistended. Multiple areas of deep tissue injury MUSCULOSKELETAL: Extensive skin breakdown with deep tissue injury bilateral lower extremities, black eschars noted on bilateral knee and ankle NEUROLOGICAL: Patient is awake, opens eyes, tremulous. He attempts to say his name. GCS 14.-Following commands extremely weak 3/5 bilateral upper and lower extremities A/P Assessment and Plan NEURO: Acute metabolic encephalopathy - Altered mental status secondary to severe dehydration hyponatremia, probable sepsis. Patient remains oriented to name only states he does not remember what happened - CT head was negative - Continue multivitamin and folate. Patient is at risk for nutritional deficiencies -Neurology consulted, neuropsychology Dr. Espitia consulted -F/U speech therapy cognitive evaluation RESP: Respiratory insufficiency - Nasal cannula oxygen - DuoNeb every 6 hours when necessary CV: Sinus tachycardia-resolved Severe dehydration-resolved Hypertension Mild troponin elevation most likely from renal failure - Normal saline IV fluids 3L bolus. Maintenance IV fluid 1/2 normal saline with 40 meq KCL at 150 ML per hour - Maintenance IV fluid with, await 2d echo, cardiology consult, - troponin down trended - Hydralazine 20 mg IV every 4 hours when necessary for SBP more than 170 GI: - Nothing by mouth, IV Protonix -Heart healthy diet with nectar thick : Acute kidney failure -resolved Severe dehydration-resolved Hypernatremia-resolved - Monitor renal function closely. Anders catheter. Acute renal failure most from severe dehydration - Normal saline IV fluids 3L bolus. Decreased maintenance IV fluid 1/2 normal saline with 40 meq KCL to 75/hr -Sodium level within normal limits ID/SKIN: Extensive deep tissue injury Probable sepsis - Blood cultures have been sent. Start Rocephin 1 g IV every 24 hours - Wound care consult - HEME: Macrocytic anemia Leukocytosis - Monitor CBC, CMP, coags - Check B12 folate and TSH ENDO: Hypokalemia, hypocalcemia, hypomagnesemia - Electrolyte replacement per protocol PROPH: - Bilateral lower extremity SCDs. Lovenox/Protonix LINES: - Utilize peripheral IVs, central line if needed Dispo: Level 2 Rehabilitation efforts have been initiated with occupational therapy and physical therapy. Diet has been advanced. Kidney function normalized. Plan transfer to [facility] in a.m., with eventual transfer to floor. Follow-up neurology consult, and neuropsychology consult. Physician Vita Edwards MD May 06, 2017 11:11
--- NOTE | 2017-05-06 12:09 | PD.HHIRCNE ---
Patient History Record/History Review Reason for Referral: The patient is a 89 year old likely right handed male who was found lying in his home, believed to have been down for over seven days after a wellness check was performed. He was found lying in his own feces and urine, with several pressure sores, with additional issues of dehydration and malnourishment. His head CT was unremarkable. On admission, he was noted to have a GCS of 10, and was generally unable to communicate and multiorgan failure. Since his initial admission, he has improved somewhat in terms of neurocognitive status, but he continues to have pervasive neurocognitive deficits as will be described in this report. 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 He is and has no children. His from Alzheimer's disease, and he was living alone. He has had hobbies of flying airplanes, but not for some time, and he has a history of alcohol dependence, which likely exacerbated his recent situation. This patient is now referred for baseline neuropsychological evaluation to assess cognitive, behavioral and emotional aspects of the injury and to provide treatment recommendations. Neuropsych Precautions: Persistent neurocognitive disorder Past Surgical/Medical History Major surgery in last 100 days: Unknown Mental Status Assessment Orientation: oriented to Self, disoriented to Place, disoriented to Time, disoriented to Situation Mental Status: WFL: Language/Interactions, Impaired: Thought processing, Attention, Learning/Memory, Problem-Solving Observation The patient is alert but oriented only to person. He was not oriented to place , time or circumstances surrounding the reason for hospitalization. In terms of attention skills, the patient was able to remain on task and remember basic but not complex instructions. In terms of memory functioning, the patient was unable to remember any of three words after a brief period of time. He exhibits minimal carryover of newly learned information, and requires constant repetition. The patient initiated spontaneous conversation. Speech was characterized by diminished prosody, grammar, articulation, volume and rate. Basic naming skills were intact. Language repetition skills were marginally intact. The patients comprehensions for basic one- and two-stage commands were inconsistent at best. Basic verbal abstraction and problem-solving skills were impaired. The patient appears to posses poor insight and awareness into their situation and within the limits of this brief evaluation, poor judgment. Adjustment/Coping Assessment Adjustment/Coping: None: Anxiety, Pain, Severe: Apathy, Awareness, Insight Affect: Flat/Constricted Observation The patients thought content was free from suicidal, homicidal or paranoid ideation, and the patients thought processes were bradyphrenic. The patients mood was guarded, and his was flat. LTG Status: Deferred STG Status: Deferred Team Members: Neuropsychologist Behavior Assessment Agitation: None Treatment Engagement: Minimal Observation Behaviorally, the patient demonstrated no signs of agitation, impulsivity or disinhibition. There was no remarkable evidence of a formal thought disorder or psychosis. LTG - Status: Deferred STG Status: Deferred Team Members: Neuropsychologist Diagnosis/Discharge Plan Impression This unknown aged (possibly 80s) man was found unconscious lying in his home for over seven days, in a dehydrated and malnourished state, and continues to show persistent neurocognitive deficits. 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 His , and he has been living alone; he has no children. His medical history is unknown. There is a strong suspicion of alcohol dependence and underlying unresolved clinical depression. Diagnostically, I would infer a delirium due to multiple causes superimposed on an underlying alcohol-related dementia, and confounded by clinical depression. 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 While his underlying conditions include a major depressive disorder, now is not likely the time to pharmacologically treat. Depending on his discharge disposition, such treatment may or may not be appropriate either. This patient appears to have compliance issues initially, and as such pharmacological intervention of any sort will require a controlled environment, such as a SNF post discharge. Additionally, continued cessation of alcohol is strongly recommended. Discharge Planning Anticipated Problems Ongoing areas of concern will include behavioral impulsivity, lack of insight and judgment, which may not improve with time or treatment. It is anticipated that this patient may wish to leave A once he is more medically stable. It is to be noted that it is my clinical opinion that this patient is not considered to possess cognitive capacity to make decisions of a legal, financial or medical nature at this point in his recovery process due to his underlying neurocognitive deficits. Presently, he is unable to appreciate a situation or its likely consequences, and he is unable to demonstrate the ability to manipulate information rationally. He does not appear capable to managing his own funds. His cognitive capacity may change during the course of his rehabilitation stay, and as such he may benefit from a follow-up capacity evaluation prior to discharge. I will continue to see him daily in order to facilitate his care. Treatment Plan This clinician will continue to follow with you throughout the course of this patients rehabilitation treatment, and I will be available to meet with the patients family/support system to facilitate their understanding and the ongoing care of their family member. The goals of neuropsychological intervention shall be both educational and supportive to the family/support system as is deemed clinically appropriate. Discharge Needs To be determined. Thank you Thank you for the opportunity to assist in this patients care. Prince Espitia, Ph.D., ABPP Board Certified in Clinical Neuropsychology [place] [employer] [place] Licensed Psychologist #[id number] Prince Espitia PhD May 06, 2017 11:36 am
--- NOTE | 2017-05-06 12:13 | PD.WCN.NOT ---
Wound Consult Description: Consult received from Doctor Hernández regarding Multiple pressure injuries to anterior torso and Limbs Communicated with: JANICE Lynch [facility] and Doctor Hannah Recommendation: Please paint DTI to R knee, and areas of eschar on R chest, L upper abdomen and media lower abdomen with povidone-Iodine BID and leave open to air. Please cleanse wounds to R cheek, R upper abdomen and L 2nd toe with normal saline or wound cleanser and cover with Xeroform gauze and if able secure dressing with gauze pads and paper tape. Change dressings as needed. Additional Information: Patient seen on 4 [facility] CV[facility] for evaluation of multiple pressure injuries to anterior torso and limbs. Patient was found at home by EMS in prone position after laying there for possibly 7 to 8 days. Patient assessed with R cheek shallow dry abrasion measuring 2cm x 2cm x ~<0.1cm. R cheek periwound presents with edema , without induration of erythema. R chest wound presents with ~50% black eschar and ~50% pink tissue and is classified as unstageable. Wound is dry without drainage or odor and appears to be friction and pressure related.Periwound is presenting with blanchable erythema. Wound measures 1cm x 3cm R upper abdominal wound presents as an abrasion measuring 2.5cm x 7 cm x~< 0.1cm. Wound is dry and is without drainage or odor and wound margins are ill defined. L upper abdominal wound is located over Rib scott prominence. Wound measures 2cm x 3cm of black adherent eschar. Periwound presents with non blanchable erythema. Wound is classified as unstageable pressure injury. Medial lower abdominal wound measures 2cm x 4cm and presents with 100% coverage of dried sanguinous drainage. Periwound presents with non blanchable erythema. Cleansed wound with wound cleanser , Some dried sanguinous drainage removed before patting dry and leaving open to air. R knee wound presents as non blanchable purple discoloration of intact skin over patella, indicating Deep tissue injury. DTI measures 2.5cm x 4.6cm.Left open to air. L knee wound presents with 100% coverage of black adherent eschar over patella, indicating unstageable pressure injury. Wound measures 3.3cm x 3.3 cm. Wound left open to air. L second toe presents with shallow dry abrasion measuring 1 cm x 1.3cm x0.1. Cleansed all wounds with wound cleanser and patted dry before painting wounds with intact eschar with povidone iodine and leaving wounds open to air. All abrasions left open to air for now. RN to apply xeroform just over abrasions and secure with dry gauze pads and tape. Wound care will continue to follow patient until discharge. Tisha Man [facility] May 06, 2017 12:01
--- NOTE | 2017-05-06 16:17 | ECHRPT ---
Indication: sob CONCLUSIONS The left ventricular systolic function is mildly reduced with an estimated ejection fraction of 45%. Normal left ventricular size. Mild concentric left ventricular hypertrophy. [id number] mitral valve regurgitation. There is mild tricuspid valve regurgitation. Mild to moderate pulmonary hypertension (PAP 50 mmHg). BP: / HR: Rhythm: MEASUREMENTS (Male / Female) Normal Values Technical Quality:Good 2D ECHO LV Diastolic Diameter PLAX 4.0 cm 4.2 - 5.9 / 3.9 - 5.3 cm LV Systolic Diameter PLAX 3.3 cm IVS Diastolic Thickness 1.4 cm 0.6 - 1.0 / 0.6 - 0.9 cm LVPW Diastolic Thickness 1.4 cm 0.6 - 1.0 / 0.6 - 0.9 cm LV Relative Wall Thickness 0.7 RV Internal Dim ED PLAX 2.5 cm M-MODE Aortic Root Diameter MM 4.1 cm LA Systolic Diameter MM 3.3 cm LA Ao Ratio MM 0.8 AV Cusp Separation MM 2.0 cm DOPPLER AI Peak Velocity 366.0 cm/s AI Peak Gradient 53.6 mmHg AI Pressure Half Time 668.0 ms LV E' Lateral Velocity 7.3 cm/s LV E' Septal Velocity 4.2 cm/s TR Peak Velocity 317.0 cm/s TR Peak Gradient 40.2 mmHg FINDINGS LEFT VENTRICLE The left ventricular systolic function is mildly reduced with an estimated ejection fraction of 45% . Normal left ventricular size. Mild concentric left ventricular hypertrophy. RIGHT VENTRICLE Normal right ventricular size and systolic function. LEFT ATRIUM The left atrial size is normal. RIGHT ATRIUM The right atrial size is normal. ATRIAL SEPTUM Normal atrial septal thickness without atrial level shunting by limited color doppler interrogation. AORTA The aortic root and proximal ascending aorta are normal in size on limited imaging. MITRAL VALVE Structurally normal mitral valve. [id number] mitral valve regurgitation. AORTIC VALVE Trileaflet aortic valve. No aortic valve stenosis or regurgitation. TRICUSPID VALVE There is mild tricuspid valve regurgitation. Structurally normal tricuspid valve. PULMONARY VALVE The pulmonary valve is not well visualized. VESSELS The inferior vena cava is normal in size. PERICARDIUM No pericardial effusion. Nidia Hatfield MD, FACC (Electronically Signed) Final Date:06 May 2017 16:16
[2017-05-06] MEDS: cefTRIAXone INJ 1,000 MG in SODIUM CHLORIDE 0.9% INJ 100 ML IV SCH (20:57)
[2017-05-06] MEDS: ENOXAPARIN SODIUM 30 MG/0.3 ML SYRINGE SQ SCH (20:57)
[2017-05-07] VITALS (8 sets, daily range): BP systolic 124–151; BP diastolic 71–87; PULSE 69–81; RESP 15–18; TEMP 97.9–99.2; O2SAT 98–99
[2017-05-07] MEDS: CHLORHEXIDINE GLUCONATE 2 % 1 PACK (2 CLOTHS) TOP SCH (04:00)
[2017-05-07 05:21] LABS: HEMATOCRIT 36.5 % (39.0-51.0); MEAN CELL VOLUME 107.7 FL (80.0-100.0); MEAN CORPUSCULAR HEMOGLOBIN 36.1 PG (27.0-34.0); MEAN CORPUSCULAR HGB CONC 33.5 % (32.0-36.0); PLATELET COUNT 164 TH/MM3 (150-450); RED BLOOD COUNT 3.39 MIL/MM3 (4.50-5.90); REVIEW FLAG FINAL; WHITE BLOOD COUNT 9.4 TH/MM3 (4.0-11.0)
[2017-05-07] MEDS: POTASSIUM CHLORIDE INJ 40 MEQ in DEXTROSE 5% IN WATE 1000ML INJ 1,000 ML IV SCH ×4 (05:45→19:59)
[2017-05-07 06:00] LABS: BICARBONATE 21.4 MEQ/L (21.0-32.0); MAGNESIUM 1.9 MG/DL (1.5-2.5); POTASSIUM 4.3 MEQ/L (3.5-5.1)
[2017-05-07] MEDS: SODIUM CHLORIDE 0.9% FLUSH 10 ML FLUSH IV FLUSH SCH ×2 (08:13→20:08)
[2017-05-07] MEDS: PANTOPRAZOLE SODIUM 40 MG VIAL IV PUSH SCH (08:13)
[2017-05-07] MEDS: MULTIVITAMIN INJ 10 ML, THIAMINE INJ 100 MG, FOLIC ACID INJ 1 MG in DEXT 5%-NACL 0.9% 5... IV SCH (10:05)
--- NOTE | 2017-05-07 12:21 | HHI.PR ---
Neuropsych Emotional Emotional: Moderate: Constricted/Blunted Cognitive Cognitive: Severe: Cognitive, Attention/Concentration, Confused/Orientation, Insight/Awareness, Judgement/Problem-Solving, Memory Psychosocial Psychosocial: Severe: Psychosocial, Family/Other Adjustment, Realistic Expectation, Unable to Asses: Self-Esteem/Confidence Progress Notes/Response to Tx Contents of Sessions: Adjustment, Level of Consciousness Time with Patient: 15 minutes Premorbid psychological status Premorbid Cognitive, Emotional and Behavioral Status: Stable. 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 The patient has no known psychiatric difficulties, as described above. Substance abuse history includes alcohol dependence. Behavioral Reactions of Patient and Family/Support System: Unable to Assess. The patient has no family. Emotional/Behavioral Status of Patient and Family/Support System: Unable to Assess. Pertinent issues, if appropriate to this patients clinical care, are described in detail above. Maximizing acute care outcome It is recommended that the patient be monitored for emergent behavioral impulsivity as the medical condition evolves. This patients neuropathological challenges may limit their rehabilitation potential going forward, and these challenges will require specialized therapeutic skills to maximize outcome. Anticipated Problems Ongoing areas of concern will include behavioral impulsivity, lack of insight and judgment, which is expected to improve with time and treatment. Presently , the patient is following only one-step commands. Treatment Plan This clinician will continue to follow with you throughout the course of this patients rehabilitation treatment, and I will be available to meet with the patients family/support system to facilitate their understanding and the ongoing care of their family member. The goals of neuropsychological intervention shall be both educational and supportive to the family/support system as is deemed clinically appropriate. Impression This unknown aged (possibly 80s) man was found unconscious lying in his home for over seven days, in a dehydrated and malnourished state, and continues to show persistent neurocognitive deficits. 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 His , and he has been living alone; he has no children. His medical history is unknown. There is a strong suspicion of alcohol dependence and underlying unresolved clinical depression. Diagnostically, I would infer a delirium due to multiple causes superimposed on an underlying alcohol-related dementia, and confounded by clinical depression. 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 This is day 3 post admission. Today , the patient was quite lethargic and unable to maintain a wakeful state to answer any questions with reasonable validity. I will continue to follow. Prince Espitia PhD May 07, 2017 12:21 pm
--- NOTE | 2017-05-07 13:14 | HHI.PR ---
Subjective Remarks Critical Care Notes: Patient is an elderly chronically ill-appearing male who was brought in by EMS after neighbors noticed that his garbage had been accumulating. EMS found him lying prone on carpet probably been down for 7-8 days, he was found in his own feces and urine. He had extensive skin break down is on disability and was very dehydrated, and he lives alone. CT of the head and C- spine was negative. Lab work showed multiple critical abnormalities BUN 66, Creat 1.46, Calcium 5.6, Na 163, K 2.3, Bicarb 15.6, and trop 0.2. White count was elevated at 14.7 with left shift. Critical care was consulted for admission Deep tissue injury to the face, Anterior abdomen, bilateral knees, and areas of black eschar formation, has Multiorgan failure and prognosis is guarded. 05/05: No acute events overnight. The patient is oriented to name only. Patient noted to be hypernatremic serial sodium being obtained. Swallow study pending in a.m. plan neurology consult, and neuropsychologist consult. 05/06: No acute events overnight. Will status unchanged patient alert to self only still extremely weak. Diet advance this a.m. after evaluation by speech therapy. Cognitive evaluation pending. Hospitalist Notes: 05/07: Seen in Intensive Care unit, patient Lethargic, difficult to arouse, no nausea, vomit or diarrhea, discussed with nurse, continue Neuropsychology following. asked for surgical training specialist. Objective Vital Signs Date Time Temp Pulse Resp B/P (MAP) Pulse Ox O2 Delivery O2 Flow Rate FiO2 05/07/17 11:00 79 05/07/17 11:00 98.6 79 16 143/87 (105) 99 05/07/17 08:02 99 Nasal Cannula 2.00 05/07/17 08:00 99.2 75 16 151/84 (106) 98 05/07/17 08:00 75 05/07/17 08:00 98 Nasal Cannula 2.00 05/07/17 03:00 98.0 69 18 124/72 (89) 99 05/07/17 03:00 76 05/06/17 23:00 98.0 69 16 148/88 (108) 99 05/06/17 23:00 74 05/06/17 19:00 98.0 69 16 122/77 (92) 99 05/06/17 19:00 99 Nasal Cannula 2.00 05/06/17 19:00 69 05/06/17 15:00 98.4 82 20 164/86 (112) 99 05/06/17 15:00 82 I/O 05/06/17 05/06/17 05/06/17 05/07/17 05/07/17 05/07/17 06:59 14:59 22:59 06:59 14:59 22:59 Intake Total 1800 ml 740 ml Output Total 750 ml 700 ml 1075 ml Balance 1050 ml 40 ml -1075 ml Intake Oral 0 ml 240 ml IV Total 1800 ml 500 ml Output Urine Total 750 ml 700 ml 1075 ml # Bowel Movements 1 2 Result Diagram: 05/07/17 0510 05/07/17 0510 Imaging Last Impressions Maxillofacial CT 05/04/171720 Signed Impressions: Service Date/Time: Thursday, May 04, 2017 18:46 - CONCLUSION: Intact facial bones. Mild, chronic-appearing maxillary sinusitis. Edgar Bae MD Head CT 05/04/171720 Signed Impressions: Service Date/Time: Thursday, May 04, 2017 18:46 - CONCLUSION: No acute intracranial abnormality. Chronic white matter changes. Edgar Bae MD Chest CT 05/04/171720 Signed Impressions: Service Date/Time: Thursday, May 04, 2017 18:54 - CONCLUSION: No evidence of acute thoracic injury. Trace left base atelectasis. Coronary artery calcification. Edgar Bae MD Cervical Spine CT 05/04/171720 Signed Impressions: Service Date/Time: Thursday, May 04, 2017 18:46 - CONCLUSION: Severe multilevel degenerative changes. No fracture or subluxation of the cervical spine. Edgar Bae MD Abdomen/Pelvis CT 05/04/171720 Signed Impressions: Service Date/Time: Thursday, May 04, 2017 18:54 - CONCLUSION: 1. No evidence of acute injury of the abdomen or pelvis. 2. Mild fatty infiltration of the liver. Edgar Bae MD Procedures None Other Results Laboratory Tests Test 05/04/17 17:30 05/04/17 17:50 05/04/17 18:25 05/04/17 21:30 Prothrombin Time 11.0 SEC Prothromb Time International Ratio 1.0 RATIO Activated Partial Thromboplast Time 21.5 SEC Urine Color YELLOW Urine Turbidity HAZY Urine pH 5.5 Urine Specific [place] 1.021 Urine Protein 30 mg/dL Urine Glucose (UA) NEG mg/dL Urine Ketones TRACE mg/dL Urine Occult Blood NEG Urine Nitrite NEG Urine Bilirubin NEG Urine Urobilinogen 2.0 MG/DL Urine Leukocyte Esterase NEG Urine RBC 1 /hpf Urine WBC 2 /hpf Urine Bacteria NONE /hpf Urine Hyaline Casts 3 /lpf Urine Mucus FEW /lpf Microscopic Urinalysis Comment CULT NOT INDICATED Lactic Acid Level 2.0 mmol/L Vitamin B12 Level 820 PG/ML Thyroid Stimulating Hormone 3rd Gen 1.180 uIU/ML Test 05/05/17 02:00 05/05/17 02:08 05/06/17 05:25 05/07/17 05:10 Nasal Screen MRSA (PCR) MRSA NOT DETECTED Neutrophils (%) (Auto) 89.7 % Lymphocytes (%) (Auto) 3.2 % Monocytes (%) (Auto) 6.9 % Eosinophils (%) (Auto) 0.1 % Basophils (%) (Auto) 0.1 % Neutrophils # (Auto) 12.9 TH/MM3 Lymphocytes # (Auto) 0.5 TH/MM3 Monocytes # (Auto) 1.0 TH/MM3 Eosinophils # (Auto) 0.0 TH/MM3 Basophils # (Auto) 0.0 TH/MM3 CBC Comment AUTO DIFF Differential Comment AUTO DIFF CONFIRMED Platelet Estimate NORMAL Platelet Morphology Comment NORMAL Blood Urea Nitrogen 87 MG/DL 41 MG/DL 22 MG/DL Creatinine 2.01 MG/DL 1.23 MG/DL 1.09 MG/DL Random Glucose 126 MG/DL 120 MG/DL 91 MG/DL Total Protein 5.7 GM/DL 5.2 GM/DL Albumin 2.2 GM/DL Calcium Level 7.9 MG/DL 7.4 MG/DL 7.8 MG/DL Magnesium Level 2.5 MG/DL 2.0 MG/DL 1.9 MG/DL Alkaline Phosphatase 44 U/L Aspartate Amino Transf (AST/SGOT) 32 U/L Alanine Aminotransferase (ALT/SGPT) 26 U/L Total Bilirubin 0.6 MG/DL Sodium Level 163 MEQ/L 149 MEQ/L 141 MEQ/L Potassium Level 3.5 MEQ/L 4.1 MEQ/L 4.3 MEQ/L Chloride Level 128 MEQ/L 121 MEQ/L 112 MEQ/L Carbon Dioxide Level 21.5 MEQ/L 20.1 MEQ/L 21.4 MEQ/L Troponin I 0.25 NG/ML Protein Corrected Calcium 8.5 MG/DL Total Creatine Kinase 229 U/L Phosphorus Level 1.4 MG/DL 1.7 MG/DL White Blood Count 9.4 TH/MM3 Red Blood Count 3.39 MIL/MM3 Hemoglobin 12.2 GM/DL Hematocrit 36.5 % Mean Corpuscular Volume 107.7 FL Mean Corpuscular Hemoglobin 36.1 PG Mean Corpuscular Hemoglobin Concent 33.5 % Red Cell Distribution Width 14.0 % Platelet Count 164 TH/MM3 Mean Platelet Volume 9.3 FL Anion Gap 8 MEQ/L Estimat Glomerular Filtration Rate 58 ML/MIN Objective Remarks GENERAL: Lethargic patient, no acute distress. SKIN: Extensive skin break down erythema and deep tissue injury on face lower chest, anterior abdomen, bilateral knees and bilateral knees. Multiple areas of black eschar formation. Skin very dry HEAD: Atraumatic. Normocephalic. EYES: Pupils equal and round. No scleral icterus. Positive arcus senilis ENT: No nasal bleeding or discharge. Mucous membranes dry NECK: Trachea midline. No JVD. CARDIOVASCULAR: Tachycardic hypertensive. No murmur appreciated. Sinus rhythm on EKG RESPIRATORY: No accessory muscle use. Clear to auscultation. Breath sounds equal bilaterally. GASTROINTESTINAL: Abdomen soft, non-tender, nondistended. Multiple areas of deep tissue injury MUSCULOSKELETAL: Extensive skin breakdown with deep tissue injury bilateral lower extremities, black eschars noted on bilateral knee and ankle NEUROLOGICAL: Lethargic difficult to arouse. Medications and IVs Current Medications Medications (Trade) Dose Ordered Sig/Monica Route Start Time Stop Time Status Last Admin (NS Flush) 2 ml UNSCH PRN IV FLUSH 05/04/17 20:00 (NS Flush) 2 ml BID IV FLUSH 05/04/17 21:00 05/07/17 08:13 (Tylenol) 650 mg Q6H PRN PO 05/04/17 20:00 (Protonix Inj) 40 mg DAILY IV PUSH 05/05/17 09:00 05/07/17 08:13 (Duoneb Neb) 1 ampule Q2HR NEB PRN INH 05/04/17 20:00 (Lovenox Inj) 30 mg Q24H SQ 05/04/17 20:00 05/06/17 20:57 Miscellaneous Information 1 [id number] XX 05/04/17 20:00 05/04/17 20:00 (Chlorhexidine 2% Cloth) 3 pack Taper DAILY@04 TOP 05/05/17 04:00 05/01/18 03:59 05/07/17 04:00 (Chlorhexidine 2% Cloth) 3 pack UNSCH PRN TOP 05/04/17 20:00 (Lactulose Liq) 30 ml DAILY PRN PO 05/04/17 20:00 Ceftriaxone Sodium 1000 mg/ Sodium Chloride 100 ml @ 200 mls/hr Q24H IV 05/04/17 20:00 05/06/17 20:57 Multivitamins 10 ml/Thiamine HCl 100 mg/Folic Acid 1 mg/Dextrose/ Sodium Chloride 511.2 ml @ 125 mls/hr DAILY IV 05/04/17 21:00 05/07/17 10:05 (Apresoline Inj) 20 mg Q4H PRN IV PUSH 05/04/17 20:30 Potassium Chloride 40 meq/ Dextrose 1,020 ml @ 75 mls/hr [id number] IV 05/05/17 04:15 05/07/17 05:45 A/P Assessment and Plan 1. Acute Metabolic Encephalopathy to continue Hydration, has Hyponatremia, and probable sepsis, continue on Ceftriaxone, No signs of infection. - CT head was negative - Continue multivitamin and folate. Patient is at risk for nutritional deficiencies -Neurology consulted, neuropsychology Dr. Espitia consulted -F/U speech therapy cognitive evaluation 2. respiratory insufficiency now on nasal cannula and as per Nurse he keep good oxygen saturation even without Oxygen 3. Hypertension controlled. 4. Acute Kidney Injury Improved. 5. Equivocal troponin elevation. 6. Hypernatremia resolved. 7. Extensive deep tissue injury to continue Rocephin and personal security specialist management. 8. Probable Alcohol abuse continue Thiamine and Vitamin B12, Folate. PROPH: - Bilateral lower extremity SCDs. Lovenox/Protonix Gastric protection continue. Discharge Planning not yet cleared for discharge. Elbert Gramajo MD May 07, 2017 13:13
--- NOTE | 2017-05-07 16:19 | PD.CONS ---
Consult Service Palliative Care Consult Requested By Dr. Herrera Primary Care Physician Unknown Reason for Consultation a. To assist with evaluation and management of symptoms including:confusion b. To assist medical decision maker(s) with: better understanding of current medical conditions; weighing benefits/burdens of medical treatment options; making medical treatment decisions. HPI History of Present Illness Patient is a 87-year-old male that was brought in to [place] by [facility] on 2016. Neighbors had called [facility] when they found that his garbage has been building up. Patient was found lying prone on his carpet and reportedly has been down for days. He was found laying on feces. ER physicians notice broad abrasions on his face, chest, and abdomen. In the ER. * Sodium was 163, potassium is 2.3, chloride is 136, bicarbonate is 15.6, BUN 66 , creatinine is 1.46 * Creatinine kinase is 234. Total protein is 3.8. Calcium is 5.6, protein corrected calcium is 7.1, troponin 0.2 * WBCs 14.7, hemoglobin is 13.4, hematocrit is 40.9, platelets 206 * PT is 11.0 INR is 1.0 PTT 21.5 * Urine was unremarkable * CT of facial bones were intact * Head CT shows no intracranial abnormality. There is no chronic white matter changes * Chest CT shows no evidence of acute thoracic injury. There is some left sided atelectasis. * Cervical spine CT shows multiple degenerative changes but no fractures or subluxation. * Abdominal CT shows no evidence of acute injury of the abdomen or pelvis. Mild fatty infiltration of the liver * Patient was transferred to the ICU due to severe hypernatremia, and further monitoring. Patient was found confused and mumbling income 3 has simple words. 05/05/2017. Patient oriented to name. Patient is confused. Consult was placed for neurology and neuropsychologist. Swallow study ordered. Echo shows EF of 45%, mild concentric left ventricular hypertrophy. Trace to mild mitral valve regurgitation. There is mild tricuspid valve regurgitation. Moderate pulmonary hypertension 05/06/2017. Patient remained confused and weak. Leukocytosis trending down and resolving. H&H remained stable. Neuropsych evaluated patient and found patient to be oriented to person only. Patient is not oriented to place time her circumstance surrounding the recent hospitalization. Per Neuropsych notes "[place] [employer] patients comprehensions for basic one- and two-stage commands were inconsistent at best. Basic verbal abstraction and problem-solving skills were impaired. The patient appears to posses poor insight and awareness into their situation and within the limits of this brief evaluation, poor judgment." Furthermore Dr. Espitia (Neuropsych has noted ) "..it is to be noted that it is my clinical opinion that this patient is not considered to possess cognitive capacity to make decisions of a legal, financial or medical nature at this point in his recovery process due to his underlying neurocognitive deficits. Presently, he is unable to appreciate a situation or its likely consequences, and he is unable to demonstrate the ability to manipulate information rationally. He does not appear capable to managing his own funds." 05/07/2017 remains confused. Palliative care consulted. On my visit, pt was sleeping, but easily arousable. Pt is confused, insist he is in "[facility]." I updated pt on clinical condition, but pt is not able to remember. Pt have difficulty remembering cousin's name. He could not remember if he was from [facility] or the [place]. Finally he said he was born in [facility] and raised in the [place]. He said he is with no children. he said sister past away. he said he has a cousin Jose Martin Buck, unsure what state he is in. He denies pain, dyspnea or any other complaints. Function/Cognitive Trajectory unknown Review of Systems ROS Limitations: Clinical Condition Constitutional: COMPLAINS OF: Fatigue Psychiatric: COMPLAINS OF: Confusion, Delusions Past Family Social History Coded Allergies: No Known Allergies (Verified Allergy, Unknown, 05/04/17) Past Medical History unknown. He could not remember. Past Surgical History unknown Reported Medications unknown. Current Medications Medications (Trade) Dose Ordered Sig/Monica Route Start Time Stop Time Status Last Admin (NS Flush) 2 ml UNSCH PRN IV FLUSH 05/04/17 20:00 (NS Flush) 2 ml BID IV FLUSH 05/04/17 21:00 05/07/17 08:13 (Tylenol) 650 mg Q6H PRN PO 05/04/17 20:00 (Protonix Inj) 40 mg DAILY IV PUSH 05/05/17 09:00 05/07/17 08:13 (Duoneb Neb) 1 ampule Q2HR NEB PRN INH 05/04/17 20:00 (Lovenox Inj) 30 mg Q24H SQ 05/04/17 20:00 05/06/17 20:57 Miscellaneous Information 1 [id number] XX 05/04/17 20:00 05/04/17 20:00 (Chlorhexidine 2% Cloth) 3 pack Taper DAILY@04 TOP 05/05/17 04:00 05/01/18 03:59 05/07/17 04:00 (Chlorhexidine 2% Cloth) 3 pack UNSCH PRN TOP 05/04/17 20:00 (Lactulose Liq) 30 ml DAILY PRN PO 05/04/17 20:00 Ceftriaxone Sodium 1000 mg/ Sodium Chloride 100 ml @ 200 mls/hr Q24H IV 05/04/17 20:00 05/06/17 20:57 Multivitamins 10 ml/Thiamine HCl 100 mg/Folic Acid 1 mg/Dextrose/ Sodium Chloride 511.2 ml @ 125 mls/hr DAILY IV 05/04/17 21:00 05/07/17 10:05 (Apresoline Inj) 20 mg Q4H PRN IV PUSH 05/04/17 20:30 Potassium Chloride 40 meq/ Dextrose 1,020 ml @ 75 mls/hr [id number] IV 05/05/17 04:15 05/07/17 05:45 Family History he does not remember. 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 , no children. Jose Martin Buck is a cousin. No phone number Spiritual/Cultural Factors zoroastrianism Physical Exam Vital Signs Date Time Temp Pulse Resp B/P (MAP) Pulse Ox O2 Delivery O2 Flow Rate FiO2 05/07/17 11:00 79 05/07/17 11:00 98.6 79 16 143/87 (105) 99 05/07/17 08:02 99 Nasal Cannula 2.00 05/07/17 08:00 99.2 75 16 151/84 (106) 98 05/07/17 08:00 75 05/07/17 08:00 98 Nasal Cannula 2.00 05/07/17 03:00 98.0 69 18 124/72 (89) 99 05/07/17 03:00 76 05/06/17 23:00 98.0 69 16 148/88 (108) 99 05/06/17 23:00 74 05/06/17 19:00 98.0 69 16 122/77 (92) 99 05/06/17 19:00 99 Nasal Cannula 2.00 05/06/17 19:00 69 Exam CONSTITUTIONAL/GENERAL: This is an elderly frail patient SKIN: No jaundice, r Ecchymoses on upper extremities. . Skin temperature appropriate. Not diaphoretic. HEAD: Atraumatic. Normocephalic. EYES: Pupils equal and round and reactive. Extraocular motions intact. No scleral icterus. No injection or drainage. Fundi not examined. ENT: Hearing grossly normal. Nose without bleeding or purulent drainage. Throat without visible erythema, exudates, masses, or lesions. NECK: Trachea midline. Supple, nontender. No palpable thyroid enlargement or nodularity. CARDIOVASCULAR: Regular rate and rhythm without murmurs, gallops, or rubs. No JVD. Peripheral pulses symmetric. RESPIRATORY/CHEST: Symmetric, unlabored respirations. Clear to auscultation. Breath sounds equal bilaterally. No wheezes, rales, or rhonchi. GASTROINTESTINAL: Abdomen soft, non-tender, nondistended. No hepato-splenomegaly , or palpable masses. No guarding. Bowel sounds present. GENITOURINARY: Without palpable bladder distension. Anders catheter in place. MUSCULOSKELETAL: Extremities without clubbing, cyanosis, or edema. No joint tenderness or effusion noted. No calf tenderness. No mottling or clubbing. LYMPHATICS: No palpable cervical or supraclavicular adenopathy. NEUROLOGICAL: Awake and alert. Motor and sensory grossly within normal limits. confused PSYCHIATRIC: No obvious anxiety/depression. no apparent hallucinations or other psychotic thought process. Diagnostic Tests Laboratory Laboratory Tests Test 05/04/17 17:30 05/04/17 17:50 05/04/17 18:25 05/04/17 21:30 White Blood Count 14.7 TH/MM3 (4.0-11.0) Red Blood Count 3.73 MIL/MM3 (4.50-5.90) Hemoglobin 13.4 GM/DL (13.0-17.0) Hematocrit 40.9 % (39.0-51.0) Mean Corpuscular Volume 109.6 FL (80.0-100.0) Mean Corpuscular Hemoglobin 35.9 PG (27.0-34.0) Mean Corpuscular Hemoglobin Concent 32.8 % (32.0-36.0) Red Cell Distribution Width 14.7 % (11.6-17.2) Platelet Count 206 TH/MM3 (150-450) Mean Platelet Volume 9.0 FL (7.0-11.0) Neutrophils (%) (Auto) 90.6 % (16.0-70.0) Lymphocytes (%) (Auto) 2.7 % (9.0-44.0) Monocytes (%) (Auto) 6.5 % (0.0-8.0) Eosinophils (%) (Auto) 0.1 % (0.0-4.0) Basophils (%) (Auto) 0.1 % (0.0-2.0) Neutrophils # (Auto) 13.3 TH/MM3 (1.8-7.7) Lymphocytes # (Auto) 0.4 TH/MM3 (1.0-4.8) Monocytes # (Auto) 1.0 TH/MM3 (0-0.9) Eosinophils # (Auto) 0.0 TH/MM3 (0-0.4) Basophils # (Auto) 0.0 TH/MM3 (0-0.2) CBC Comment DIFF FINAL Differential Comment Prothrombin Time 11.0 SEC (9.8-11.6) Prothromb Time International Ratio 1.0 RATIO Activated Partial Thromboplast Time 21.5 SEC (24.3-30.1) Blood Urea Nitrogen 66 MG/DL (7-18) 94 MG/DL (7-18) Creatinine 1.46 MG/DL (0.60-1.30) 2.31 MG/DL (0.60-1.30) Random Glucose 76 MG/DL (74-106) 110 MG/DL (74-106) Total Protein 3.8 GM/DL (6.4-8.2) 5.8 GM/DL (6.4-8.2) Calcium Level 5.6 MG/DL (8.5-10.1) 8.5 MG/DL (8.5-10.1) Sodium Level 163 MEQ/L (136-145) 160 MEQ/L (136-145) Potassium Level 2.3 MEQ/L (3.5-5.1) 3.9 MEQ/L (3.5-5.1) Chloride Level 136 MEQ/L (98-107) 131 MEQ/L (98-107) Carbon Dioxide Level 15.6 MEQ/L (21.0-32.0) 19.2 MEQ/L (21.0-32.0) Anion Gap 11 MEQ/L (5-15) 10 MEQ/L (5-15) Estimat Glomerular Filtration Rate 42 ML/MIN (>89) 25 ML/MIN (>89) Protein Corrected Calcium 7.1 MG/DL (8.5-10.1) Magnesium Level 1.6 MG/DL (1.5-2.5) 2.6 MG/DL (1.5-2.5) Total Creatine Kinase 234 U/L (39-308) Troponin I 0.20 NG/ML (0.02-0.05) 0.23 NG/ML (0.02-0.05) Urine Color YELLOW (YELLW/STRAW) Urine Turbidity HAZY (CLEAR) Urine pH 5.5 (5.0-8.5) Urine Specific [place] 1.021 (1.002-1.035) Urine Protein 30 mg/dL (NEG-TRACE) Urine Glucose (UA) NEG mg/dL (NEG) Urine Ketones TRACE mg/dL (NEG) Urine Occult Blood NEG (NEG) Urine Nitrite NEG (NEG) Urine Bilirubin NEG (NEG) Urine Urobilinogen 2.0 MG/DL (LESS THAN Urine Leukocyte Esterase NEG (NEG) Urine RBC 1 /hpf (0-3) Urine WBC 2 /hpf (0-5) Urine Bacteria NONE /hpf (NONE) Urine Hyaline Casts 3 /lpf (RARE) Urine Mucus FEW /lpf (OCC) Microscopic Urinalysis Comment CULT NOT INDICATED Lactic Acid Level 2.0 mmol/L (0.4-2.0) Albumin 2.2 GM/DL (3.4-5.0) Alkaline Phosphatase 50 U/L (45-117) Aspartate Amino Transf (AST/SGOT) 36 U/L (15-37) Alanine Aminotransferase (ALT/SGPT) 29 U/L (12-78) Total Bilirubin 0.9 MG/DL (0.2-1.0) Vitamin B12 Level 820 PG/ML (193-986) Thyroid Stimulating Hormone 3rd Gen 1.180 uIU/ML (0.358-3.740) Test 05/04/17 22:55 05/05/17 02:00 05/05/17 02:08 05/05/17 18:31 White Blood Count 16.7 TH/MM3 (4.0-11.0) 14.4 TH/MM3 (4.0-11.0) Red Blood Count 3.45 MIL/MM3 (4.50-5.90) 3.08 MIL/MM3 (4.50-5.90) Hemoglobin 12.3 GM/DL (13.0-17.0) 10.8 GM/DL (13.0-17.0) Hematocrit 38.6 % (39.0-51.0) 34.7 % (39.0-51.0) Mean Corpuscular Volume 112.0 FL (80.0-100.0) 112.8 FL (80.0-100.0) Mean Corpuscular Hemoglobin 35.7 PG (27.0-34.0) 35.2 PG (27.0-34.0) Mean Corpuscular Hemoglobin Concent 31.9 % (32.0-36.0) 31.2 % (32.0-36.0) Red Cell Distribution Width 15.2 % (11.6-17.2) 15.3 % (11.6-17.2) Platelet Count 189 TH/MM3 (150-450) 170 TH/MM3 (150-450) Mean Platelet Volume 9.1 FL (7.0-11.0) 8.8 FL (7.0-11.0) Neutrophils (%) (Auto) 89.2 % (16.0-70.0) 89.7 % (16.0-70.0) Lymphocytes (%) (Auto) 2.8 % (9.0-44.0) 3.2 % (9.0-44.0) Monocytes (%) (Auto) 7.7 % (0.0-8.0) 6.9 % (0.0-8.0) Eosinophils (%) (Auto) 0.1 % (0.0-4.0) 0.1 % (0.0-4.0) Basophils (%) (Auto) 0.2 % (0.0-2.0) 0.1 % (0.0-2.0) Neutrophils # (Auto) 14.9 TH/MM3 (1.8-7.7) 12.9 TH/MM3 (1.8-7.7) Lymphocytes # (Auto) 0.5 TH/MM3 (1.0-4.8) 0.5 TH/MM3 (1.0-4.8) Monocytes # (Auto) 1.3 TH/MM3 (0-0.9) 1.0 TH/MM3 (0-0.9) Eosinophils # (Auto) 0.0 TH/MM3 (0-0.4) 0.0 TH/MM3 (0-0.4) Basophils # (Auto) 0.0 TH/MM3 (0-0.2) 0.0 TH/MM3 (0-0.2) CBC Comment DIFF FINAL AUTO DIFF Differential Comment AUTO DIFF CONFIRMED Nasal Screen MRSA (PCR) MRSA NOT DETECTED (NOT Platelet Estimate NORMAL (NORMAL) Platelet Morphology Comment NORMAL (NORMAL) Blood Urea Nitrogen 87 MG/DL (7-18) Creatinine 2.01 MG/DL (0.60-1.30) Random Glucose 126 MG/DL (74-106) Total Protein 5.7 GM/DL (6.4-8.2) Albumin 2.2 GM/DL (3.4-5.0) Calcium Level 7.9 MG/DL (8.5-10.1) Magnesium Level 2.5 MG/DL (1.5-2.5) Alkaline Phosphatase 44 U/L (45-117) Aspartate Amino Transf (AST/SGOT) 32 U/L (15-37) Alanine Aminotransferase (ALT/SGPT) 26 U/L (12-78) Total Bilirubin 0.6 MG/DL (0.2-1.0) Sodium Level 163 MEQ/L (136-145) 152 MEQ/L (136-145) Potassium Level 3.5 MEQ/L (3.5-5.1) Chloride Level 128 MEQ/L (98-107) Carbon Dioxide Level 21.5 MEQ/L (21.0-32.0) Anion Gap 14 MEQ/L (5-15) Estimat Glomerular Filtration Rate 29 ML/MIN (>89) Troponin I 0.25 NG/ML (0.02-0.05) Test 05/06/17 05:25 05/07/17 05:10 White Blood Count 9.5 TH/MM3 (4.0-11.0) 9.4 TH/MM3 (4.0-11.0) Red Blood Count 3.05 MIL/MM3 (4.50-5.90) 3.39 MIL/MM3 (4.50-5.90) Hemoglobin 10.9 GM/DL (13.0-17.0) 12.2 GM/DL (13.0-17.0) Hematocrit 33.4 % (39.0-51.0) 36.5 % (39.0-51.0) Mean Corpuscular Volume 109.5 FL (80.0-100.0) 107.7 FL (80.0-100.0) Mean Corpuscular Hemoglobin 35.6 PG (27.0-34.0) 36.1 PG (27.0-34.0) Mean Corpuscular Hemoglobin Concent 32.5 % (32.0-36.0) 33.5 % (32.0-36.0) Red Cell Distribution Width 13.9 % (11.6-17.2) 14.0 % (11.6-17.2) Platelet Count 147 TH/MM3 (150-450) 164 TH/MM3 (150-450) Mean Platelet Volume 8.8 FL (7.0-11.0) 9.3 FL (7.0-11.0) Blood Urea Nitrogen 41 MG/DL (7-18) 22 MG/DL (7-18) Creatinine 1.23 MG/DL (0.60-1.30) 1.09 MG/DL (0.60-1.30) Random Glucose 120 MG/DL (74-106) 91 MG/DL (74-106) Total Protein 5.2 GM/DL (6.4-8.2) Calcium Level 7.4 MG/DL (8.5-10.1) 7.8 MG/DL (8.5-10.1) Phosphorus Level 1.4 MG/DL (2.5-4.9) 1.7 MG/DL (2.5-4.9) Magnesium Level 2.0 MG/DL (1.5-2.5) 1.9 MG/DL (1.5-2.5) Sodium Level 149 MEQ/L (136-145) 141 MEQ/L (136-145) Potassium Level 4.1 MEQ/L (3.5-5.1) 4.3 MEQ/L (3.5-5.1) Chloride Level 121 MEQ/L (98-107) 112 MEQ/L (98-107) Carbon Dioxide Level 20.1 MEQ/L (21.0-32.0) 21.4 MEQ/L (21.0-32.0) Anion Gap 8 MEQ/L (5-15) 8 MEQ/L (5-15) Estimat Glomerular Filtration Rate 51 ML/MIN (>89) 58 ML/MIN (>89) Protein Corrected Calcium 8.5 MG/DL (8.5-10.1) Total Creatine Kinase 229 U/L (39-308) Result Diagram: 05/07/1750905/07/17509 Microbiology Microbiology Date/Time Source Procedure Growth Status 05/04/17 18:25 Blood Peripheral Aerobic Blood Culture - Preliminary NO GROWTH IN 3 DAYS Resulted 05/04/17 18:25 Blood Peripheral Anaerobic Blood Culture - Preliminary NO GROWTH IN 3 DAYS Resulted 05/04/17 18:00 Blood Peripheral Aerobic Blood Culture - Preliminary NO GROWTH IN 3 DAYS Resulted 05/04/17 18:00 Blood Peripheral Anaerobic Blood Culture - Preliminary NO GROWTH IN 3 DAYS Resulted Imaging Last Impressions Maxillofacial CT 05/04/171720 Signed Impressions: Service Date/Time: Thursday, May 04, 2017 18:46 - CONCLUSION: Intact facial bones. Mild, chronic-appearing maxillary sinusitis. Edgar Bae MD Head CT 05/04/171720 Signed Impressions: Service Date/Time: Thursday, May 04, 2017 18:46 - CONCLUSION: No acute intracranial abnormality. Chronic white matter changes. Edgar Bae MD Chest CT 05/04/171720 Signed Impressions: Service Date/Time: Thursday, May 04, 2017 18:54 - CONCLUSION: No evidence of acute thoracic injury. Trace left base atelectasis. Coronary artery calcification. Edgar Bae MD Cervical Spine CT 05/04/171720 Signed Impressions: Service Date/Time: Thursday, May 04, 2017 18:46 - CONCLUSION: Severe multilevel degenerative changes. No fracture or subluxation of the cervical spine. Edgar Bae MD Abdomen/Pelvis CT 05/04/171720 Signed Impressions: Service Date/Time: Thursday, May 04, 2017 18:54 - CONCLUSION: 1. No evidence of acute injury of the abdomen or pelvis. 2. Mild fatty infiltration of the liver. Edgar Bae MD Patient/Family Conference Family Conference Time (mins): 0 Issues Discussed: * Palliative care role, purpose, approach * Additional medical, psychosocial, and spiritual history * Patients general health, functional status, and cognitive changes in the months leading up to the current hospitalization * Patient/family understanding of the current medical problems * Patient/family understanding of prognosis * Patients goals of care as best understood from advance directives and/or conversations and/or values * Current medical treatment options and benefits/burdens of those options * Likely scenarios comparing ongoing aggressive care with a transition to comfort measures only * Questions answered to the best of my ability * Palliative care contact information provided Assessment and Plan Disease Oriented Problem List: (1) Acute kidney failure (2) Rhabdomyolysis (3) Altered mental status (4) Metabolic acidosis (5) Severe hypernatremia (6) Severe hypokalemia (7) Alcohol dependence with alcohol-induced persisting dementia (8) Delirium due to multiple etiologies Symptom Scale: Pertinent Non-Medical Issues Psychosocial: Spiritual: Legal: Ethical issues impacting care: Important Contacts 87 year old with dementia, that was found unresponsive in feces and urine, with acute renal insufficiency. Pt's proxy feels pt memory has significantly decline. Although dementia does not meet end stage criteria of Alzheimers of FAST 7C. given his Prognosis Prognosis is guarded Code Status: Full Code Plan == capacity- I agree with neuropsych eval, pt does not have capacity to make medical decisions. == Decision maker. Pt is , and have no children. [place] it will be other family or friend that would serve as proxy. Pt able to recall a cousin Daly Buck, and there is also a neighbor, no phone number left. I will ask case managment to find any available family, or friends. may need to run acurrants report. Currently there is no decision maker == goals of care: currently pt is incapacitated and no know decision maker. unable to review goals of care. Goals will need to be aggressive until decision maker found. == confusion- due to renal insufficiency, and maybe underlying etoh? dementia. No med rec. ==palliative care will follow, but decision maker needs to be found. Time Spent Total Floor Time (mins): 50 Face to Face Time (mins): 44 Thank you for the opportunity to participate in the care of Mr. Eddy. Attestation To help prompt me to consider important information that might be impacting today's encounter and assessment, information from prior notes written by myself or my colleagues may have been "brought forward" into today's note. My signature on this note, however, is an attestation that I personally performed the exam, history, and/or decision-making noted today, and, unless otherwise indicated, the interactions with patient, family, and staff as well as the review of records all occurred today. I also attest that the listed assessment and stated plan reflect my best clinical judgment today based on the combination of historical information, prior notes, and today's exam/ interactions. When time spent is documented, it refers only to time spent today by the signer, or if indicated, combined time spent today by collaborating physician/nurse practitioner. Blaise Cassidy MD May 07, 2017 16:19
[2017-05-07] MEDS: cefTRIAXone INJ 1,000 MG in SODIUM CHLORIDE 0.9% INJ 100 ML IV SCH (20:07)
[2017-05-07] MEDS: ENOXAPARIN SODIUM 30 MG/0.3 ML SYRINGE SQ SCH (20:07)
[2017-05-08] VITALS (19 sets, daily range): BP systolic 129–143; BP diastolic 68–91; PULSE 60–97; RESP 15–20; TEMP 97.8–98.2; O2SAT 98–100
[2017-05-08] MEDS: CHLORHEXIDINE GLUCONATE 2 % 1 PACK (2 CLOTHS) TOP SCH (04:00)
[2017-05-08 06:59] LABS: AUTOMATED NEUTROPHIL # 8.2 TH/MM3 (1.8-7.7); BASOPHIL % 0.5 % (0.0-2.0); EOSINOPHIL # 0.1 TH/MM3 (0-0.4); EOSINOPHIL % 1.4 % (0.0-4.0); HEMATOCRIT 34.2 % (39.0-51.0); LYMPH % 6.5 % (9.0-44.0); LYMPHOCYTE # 0.6 TH/MM3 (1.0-4.8); MEAN CELL VOLUME 106.5 FL (80.0-100.0); MEAN CORPUSCULAR HEMOGLOBIN 35.9 PG (27.0-34.0); MEAN CORPUSCULAR HGB CONC 33.7 % (32.0-36.0); NEUT % 82.6 % (16.0-70.0); PLATELET COUNT 188 TH/MM3 (150-450); RED BLOOD COUNT 3.21 MIL/MM3 (4.50-5.90); WHITE BLOOD COUNT 9.9 TH/MM3 (4.0-11.0)
[2017-05-08 07:15] LABS: HEMO FLAGS AUTO DIFF
[2017-05-08 07:23] LABS: BICARBONATE 21.9 MEQ/L (21.0-32.0); MAGNESIUM 1.7 MG/DL (1.5-2.5); POTASSIUM 5.5 MEQ/L (3.5-5.1)
[2017-05-08] MEDS ORDERED: SODIUM PHOSPHATE INJ 21 MMOL in SODIUM CHLORIDE 0.9% INJ 150 ML IV ONE (08:30)
[2017-05-08 08:33] LABS: BANDS 6 % (0-6); MYELOCYTES 1 % (0-0); NEUTROPHIL # MANUAL DIFF 8.4 TH/MM3 (1.8-7.7); PLATELET ESTIMATE SMEAR NORMAL (NORMAL); PLATELET MORPHOLOGY NORMAL (NORMAL); POLYS (SEG NEUTROPHILS) 78 % (16-70); SCAN/DIFF FINAL DIFF MANUAL; WBC DIFF SAMPLE 100
[2017-05-08] MEDS ORDERED: SODIUM CHLOR 0.45% 1000 ML INJ 1,000 ML IV SCH (09:00)
[2017-05-08] MEDS: PANTOPRAZOLE SODIUM 40 MG VIAL IV PUSH SCH (10:07)
[2017-05-08] MEDS: SODIUM CHLORIDE 0.9% FLUSH 10 ML FLUSH IV FLUSH SCH ×2 (10:08→20:39)
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
[2017-05-08] MEDS: MULTIVITAMIN INJ 10 ML, THIAMINE INJ 100 MG, FOLIC ACID INJ 1 MG in DEXT 5%-NACL 0.9% 5... IV SCH (12:37)
--- NOTE | 2017-05-08 12:46 | HHI.PR ---
Subjective Remarks Critical Care Notes: Patient is an elderly chronically ill-appearing male who was brought in by EMS after neighbors noticed that his garbage had been accumulating. EMS found him lying prone on carpet probably been down for 7-8 days, he was found in his own feces and urine. He had extensive skin break down is on disability and was very dehydrated, and he lives alone. CT of the head and C- spine was negative. Lab work showed multiple critical abnormalities BUN 66, Creat 1.46, Calcium 5.6, Na 163, K 2.3, Bicarb 15.6, and trop 0.2. White count was elevated at 14.7 with left shift. Critical care was consulted for admission Deep tissue injury to the face, Anterior abdomen, bilateral knees, and areas of black eschar formation, has Multiorgan failure and prognosis is guarded. 05/05: No acute events overnight. The patient is oriented to name only. Patient noted to be hypernatremic serial sodium being obtained. Swallow study pending in a.m. plan neurology consult, and neuropsychologist consult. 05/06: No acute events overnight. Will status unchanged patient alert to self only still extremely weak. Diet advance this a.m. after evaluation by speech therapy. Cognitive evaluation pending. Hospitalist Notes: 05/07: Seen in Intensive Care unit, patient Lethargic, difficult to arouse, discussed with nurse, continue Neuropsychology following. asked for occupational health specialist. 05/08: Seen in his bedroom stable no complaint, regained consciousness, will continue to work with Physical Therapy and continue general diet and added Ensure. Objective Vital Signs Date Time Temp Pulse Resp B/P (MAP) Pulse Ox O2 Delivery O2 Flow Rate FiO2 05/08/17 12:36 60 20 131/75 (93) 98 05/08/17 08:23 100 Nasal Cannula 1.00 05/08/17 08:00 98.2 78 20 143/87 (105) 100 05/08/17 07:00 78 05/08/17 03:28 76 05/08/17 03:28 98.2 79 15 139/76 (97) 99 05/07/17 23:29 80 05/07/17 23:29 98.6 81 15 144/81 (102) 99 05/07/17 19:30 98.6 79 18 137/85 (102) 99 05/07/17 19:30 99 Nasal Cannula 2.00 05/07/17 19:00 78 05/07/17 15:00 79 05/07/17 15:00 97.9 79 16 128/71 (90) 98 I/O 05/07/17 05/07/17 05/07/17 05/08/17 05/08/17 05/08/17 07:00 15:00 23:00 07:00 15:00 23:00 Intake Total 2744 ml 1510 ml 40 ml Output Total 1075 ml 870 ml 1410 ml Balance -1075 ml 1874 ml 100 ml 40 ml Intake Oral 500 ml 480 ml IV Total 2244 ml 1030 ml 40 ml Output Urine Total 1075 ml 870 ml 1410 ml Stool Total 0 ml # Bowel Movements 0 Result Diagram: 05/08/1762105/08/17621 Imaging Last Impressions Maxillofacial CT 05/04/171720 Signed Impressions: Service Date/Time: Thursday, May 04, 2017 18:46 - CONCLUSION: Intact facial bones. Mild, chronic-appearing maxillary sinusitis. Edgar Bae MD Head CT 05/04/171720 Signed Impressions: Service Date/Time: Thursday, May 04, 2017 18:46 - CONCLUSION: No acute intracranial abnormality. Chronic white matter changes. Edgar Bae MD Chest CT 05/04/171720 Signed Impressions: Service Date/Time: Thursday, May 04, 2017 18:54 - CONCLUSION: No evidence of acute thoracic injury. Trace left base atelectasis. Coronary artery calcification. Edgar Bae MD Cervical Spine CT 05/04/171720 Signed Impressions: Service Date/Time: Thursday, May 04, 2017 18:46 - CONCLUSION: Severe multilevel degenerative changes. No fracture or subluxation of the cervical spine. Edgar Bae MD Abdomen/Pelvis CT 05/04/171720 Signed Impressions: Service Date/Time: Thursday, May 04, 2017 18:54 - CONCLUSION: 1. No evidence of acute injury of the abdomen or pelvis. 2. Mild fatty infiltration of the liver. Edgar Bae MD Procedures None Other Results Laboratory Tests Test 05/04/17 17:30 05/04/17 17:50 05/04/17 18:25 05/04/17 21:30 Prothrombin Time 11.0 SEC Prothromb Time International Ratio 1.0 RATIO Activated Partial Thromboplast Time 21.5 SEC Urine Color YELLOW Urine Turbidity HAZY Urine pH 5.5 Urine Specific [place] 1.021 Urine Protein 30 mg/dL Urine Glucose (UA) NEG mg/dL Urine Ketones TRACE mg/dL Urine Occult Blood NEG Urine Nitrite NEG Urine Bilirubin NEG Urine Urobilinogen 2.0 MG/DL Urine Leukocyte Esterase NEG Urine RBC 1 /hpf Urine WBC 2 /hpf Urine Bacteria NONE /hpf Urine Hyaline Casts 3 /lpf Urine Mucus FEW /lpf Microscopic Urinalysis Comment CULT NOT INDICATED Lactic Acid Level 2.0 mmol/L Vitamin B12 Level 820 PG/ML Thyroid Stimulating Hormone 3rd Gen 1.180 uIU/ML Test 05/05/17 02:00 05/05/17 02:08 05/06/17 05:25 05/08/17 06:22 Nasal Screen MRSA (PCR) MRSA NOT DETECTED Blood Urea Nitrogen 87 MG/DL 41 MG/DL 14 MG/DL Creatinine 2.01 MG/DL 1.23 MG/DL 0.96 MG/DL Random Glucose 126 MG/DL 120 MG/DL 205 MG/DL Total Protein 5.7 GM/DL 5.2 GM/DL Albumin 2.2 GM/DL Calcium Level 7.9 MG/DL 7.4 MG/DL 7.6 MG/DL Magnesium Level 2.5 MG/DL 2.0 MG/DL 1.7 MG/DL Alkaline Phosphatase 44 U/L Aspartate Amino Transf (AST/SGOT) 32 U/L Alanine Aminotransferase (ALT/SGPT) 26 U/L Total Bilirubin 0.6 MG/DL Sodium Level 163 MEQ/L 149 MEQ/L 136 MEQ/L Potassium Level 3.5 MEQ/L 4.1 MEQ/L 5.5 MEQ/L Chloride Level 128 MEQ/L 121 MEQ/L 108 MEQ/L Carbon Dioxide Level 21.5 MEQ/L 20.1 MEQ/L 21.9 MEQ/L Troponin I 0.25 NG/ML Protein Corrected Calcium 8.5 MG/DL Total Creatine Kinase 229 U/L Phosphorus Level 1.4 MG/DL 1.9 MG/DL White Blood Count 9.9 TH/MM3 Red Blood Count 3.21 MIL/MM3 Hemoglobin 11.5 GM/DL Hematocrit 34.2 % Mean Corpuscular Volume 106.5 FL Mean Corpuscular Hemoglobin 35.9 PG Mean Corpuscular Hemoglobin Concent 33.7 % Red Cell Distribution Width 14.0 % Platelet Count 188 TH/MM3 Mean Platelet Volume 9.8 FL Neutrophils (%) (Auto) 82.6 % Lymphocytes (%) (Auto) 6.5 % Monocytes (%) (Auto) 9.0 % Eosinophils (%) (Auto) 1.4 % Basophils (%) (Auto) 0.5 % Neutrophils # (Auto) 8.2 TH/MM3 Lymphocytes # (Auto) 0.6 TH/MM3 Monocytes # (Auto) 0.9 TH/MM3 Eosinophils # (Auto) 0.1 TH/MM3 Basophils # (Auto) 0.0 TH/MM3 CBC Comment AUTO DIFF Differential Total Cells Counted 100 Neutrophils % (Manual) 78 % Band Neutrophils % 6 % Lymphocytes % 8 % Monocytes % 7 % Neutrophils # (Manual) 8.4 TH/MM3 Myelocytes 1 % Differential Comment FINAL DIFF MANUAL Platelet Estimate NORMAL Platelet Morphology Comment NORMAL Anion Gap 6 MEQ/L Estimat Glomerular Filtration Rate 74 ML/MIN Objective Remarks GENERAL: alert oriented in person, no acute distress, eating well. SKIN: Extensive skin break down erythema and deep tissue injury on face lower chest, anterior abdomen, bilateral knees and bilateral knees. Multiple areas of black eschar formation. Skin very dry HEAD: Atraumatic. Normocephalic. EYES: Pupils equal and round. No scleral icterus. Positive arcus senilis ENT: No nasal bleeding or discharge. Mucous membranes dry NECK: Trachea midline. No JVD. CARDIOVASCULAR: Tachycardic hypertensive. No murmur appreciated. Sinus rhythm on EKG RESPIRATORY: No accessory muscle use. Clear to auscultation. Breath sounds equal bilaterally. GASTROINTESTINAL: Abdomen soft, non-tender, nondistended. Multiple areas of deep tissue injury MUSCULOSKELETAL: Extensive skin breakdown with deep tissue injury bilateral lower extremities, black eschars noted on bilateral knee and ankle NEUROLOGICAL: alert and no focal deficit. Medications and IVs Current Medications Medications (Trade) Dose Ordered Sig/Monica Route Start Time Stop Time Status Last Admin (NS Flush) 2 ml UNSCH PRN IV FLUSH 05/04/17 20:00 (NS Flush) 2 ml BID IV FLUSH 05/04/17 21:00 05/08/17 10:08 (Tylenol) 650 mg Q6H PRN PO 05/04/17 20:00 (Protonix Inj) 40 mg DAILY IV PUSH 05/05/17 09:00 05/08/17 10:07 (Duoneb Neb) 1 ampule Q2HR NEB PRN INH 05/04/17 20:00 (Lovenox Inj) 30 mg Q24H SQ 05/04/17 20:00 05/07/17 20:07 Miscellaneous Information 1 Q361D XX 05/04/17 20:00 05/04/17 20:00 (Chlorhexidine 2% Cloth) 3 pack Taper DAILY@04 TOP 05/05/17 04:00 05/01/18 03:59 05/07/17 04:00 (Chlorhexidine 2% Cloth) 3 pack UNSCH PRN TOP 05/04/17 20:00 (Lactulose Liq) 30 ml DAILY PRN PO 05/04/17 20:00 Ceftriaxone Sodium 1000 mg/ Sodium Chloride 100 ml @ 200 mls/hr Q24H IV 05/04/17 20:00 05/07/17 20:07 Multivitamins 10 ml/Thiamine HCl 100 mg/Folic Acid 1 mg/Dextrose/ Sodium Chloride 511.2 ml @ 125 mls/hr DAILY IV 05/04/17 21:00 05/08/17 12:37 (Apresoline Inj) 20 mg Q4H PRN IV PUSH 05/04/17 20:30 Sodium Chloride 1,000 ml @ 75 mls/hr [id number] IV 05/08/17 09:00 05/08/17 12:38 A/P Assessment and Plan 1. Acute Metabolic Encephalopathy to continue Hydration, has Hyponatremia, and probable sepsis, continue on Ceftriaxone, No signs of infection. - CT head was negative - Continue multivitamin and folate. Patient is at risk for nutritional deficiencies -Neurology consulted, neuropsychology Dr. Espitia consulted -patient regained consciousness today, continue present care and follow added Ensure to General diet. 2. respiratory insufficiency Improved 3. Hypertension controlled. 4. Acute Kidney Injury Improved. 5. Equivocal troponin elevation. 6. Hypernatremia resolved. 7. Extensive deep tissue injury to continue Rocephin and plastic surgery specialist management. 8. Probable Alcohol abuse continue Thiamine and Vitamin B12, Folate. 9. Hyperglycemia and Hyperkalemia secondary to IV fluid with D5 and potassium removed and following. PROPH: - Bilateral lower extremity SCDs. Lovenox/Protonix Gastric protection continue. Discharge Planning not yet cleared for discharge. Elbert Gramajo MD May 08, 2017 12:46
--- NOTE | 2017-05-08 12:53 | HHI.HCPN ---
Spoke with MEDICAL BILLING INSTRUCTOR regarding follow-up on finding family for Mr. Eddy as palliative care cannot address goals of care without health care proxy as Mr. Eddy is unable to make his own medical decisions at this time. Per MEDICAL BILLING INSTRUCTOR accurints report has been completed. All relatives listed for patient are . When accurints was ran on relatives, only individuals and patient were listed. Per palliative care MD note yesterday patient expressed he had a cousin, Daly Buck. Accurints produced "too many results" for name. Patient is originally from [place]. When accurints was run on Daly Buck in [place], 25 potential matches found. Unable to narrow down without last known location, , etc. Unable to match on social media. Unable to locate additional through google search. Mug shot found, patient was arrested in 2007 for domestic assault. Left message with CM to identify other efforts regarding finding family. 350pm- spoke with CM regarding neighbor who came to visit. See their notes from today. Left message for neighbor, Ebony Carney [phone]. Will attempt to discuss with her possible family for Mr. Eddy. If no family identified will see if she is willing to serve as health care proxy should Mr. Eddy remain unable to make his own medical decisions. Jami Armstrong SECURITY SERGEANT, [employer] May 08, 2017 12:53
[2017-05-08] MEDS: cefTRIAXone INJ 1,000 MG in SODIUM CHLORIDE 0.9% INJ 100 ML IV SCH (20:00)
[2017-05-08] MEDS: ENOXAPARIN SODIUM 30 MG/0.3 ML SYRINGE SQ SCH (20:37)
[2017-05-09] VITALS (27 sets, daily range): BP systolic 128–153; BP diastolic 74–97; PULSE 80–100; RESP 16–18; TEMP 97.6–98.3; O2SAT 97–98
[2017-05-09] MEDS: CHLORHEXIDINE GLUCONATE 2 % 1 PACK (2 CLOTHS) TOP SCH (04:00)
[2017-05-09 05:54] LABS: AUTOMATED NEUTROPHIL # 8.5 TH/MM3 (1.8-7.7); BASOPHIL # 0.1 TH/MM3 (0-0.2); BASOPHIL % 0.7 % (0.0-2.0); EOSINOPHIL # 0.1 TH/MM3 (0-0.4); EOSINOPHIL % 1.1 % (0.0-4.0); LYMPH % 7.4 % (9.0-44.0); LYMPHOCYTE # 0.8 TH/MM3 (1.0-4.8); MEAN CELL VOLUME 106.3 FL (80.0-100.0); MEAN CORPUSCULAR HEMOGLOBIN 36.1 PG (27.0-34.0); MONO % 9.8 % (0.0-8.0); PLATELET COUNT 230 TH/MM3 (150-450); RED BLOOD COUNT 3.11 MIL/MM3 (4.50-5.90); RED CELL DISTRIBUTION WIDTH 13.9 % (11.6-17.2); WHITE BLOOD COUNT 10.5 TH/MM3 (4.0-11.0)
[2017-05-09 06:04] LABS: HEMO FLAGS AUTO DIFF
[2017-05-09 06:23] LABS: ANION GAP 9 MEQ/L (5-15); BICARBONATE 21.6 MEQ/L (21.0-32.0); BLOOD UREA NITROGEN 14 MG/DL (7-18); CHLORIDE 111 MEQ/L (98-107); GLOMERULAR FILTRATION RATE 72 ML/MIN (>89); POTASSIUM 3.6 MEQ/L (3.5-5.1); SODIUM (NA) 142 MEQ/L (136-145)
[2017-05-09 07:53] LABS: BANDS 2 % (0-6); BASOPHILS 1 % (0-2); EOSINOPHILS 1 % (0-4); MYELOCYTES 3 % (0-0); NEUTROPHIL # MANUAL DIFF 8.8 TH/MM3 (1.8-7.7); POLYS (SEG NEUTROPHILS) 79 % (16-70); WBC DIFF SAMPLE 100
[2017-05-09 07:55] LABS: TOXIC GRANULATION 1+ (NORMAL)
[2017-05-09 07:56] LABS: PLATELET ESTIMATE SMEAR NORMAL (NORMAL); PLATELET MORPHOLOGY ENLARGED (NORMAL); SCAN/DIFF FINAL DIFF MANUAL
[2017-05-09] MEDS: MULTIVITAMIN INJ 10 ML, THIAMINE INJ 100 MG, FOLIC ACID INJ 1 MG in DEXT 5%-NACL 0.9% 5... IV SCH (09:17)
[2017-05-09] MEDS: SODIUM CHLORIDE 0.9% FLUSH 10 ML FLUSH IV FLUSH SCH ×2 (09:18→21:28)
[2017-05-09] MEDS: PANTOPRAZOLE SODIUM 40 MG VIAL IV PUSH SCH (09:18)
[2017-05-09 11:06] LABS: HEMOGLOBIN A1a 1.4 %; HEMOGLOBIN Ao 83.4 %; HEMOGLOBIN F 0.8 %; HEMOGLOBIN LA1C 2.6 %; HEMOGLOBIN P3 5.7 %
--- NOTE | 2017-05-09 11:08 | HHI.HCPN ---
Reason for visit a. To assist with evaluation and management of symptoms including:confusion b. To assist medical decision maker(s) with: better understanding of current medical conditions; weighing benefits/burdens of medical treatment options; making medical treatment decisions. Subjective/Interval History Pt is alert but remains confused, say "I am in a college campus." He endorse right knee pain on movement. No other complaints. Does not recognize me or remember any prior conversations. Family/friend interactions Spoke with Ebony in conference room today. Discussed events leading up to pt's hospitalization and course of hospitalization. Answered questions She endorse pt memory is much more worse than before, but even before hospitalization, he could not recall her name already. She endorse since pt's , he has not acted like he wanted to give up and "join [employer]." She recall events in which she knocked on the door and offered helped, but he turned her away. She suspects pt would would not want to be resucitated. She is going to discussed with her . Advance Directives Living Will: Never completed Health Care Surrogate: Never completed Durable Power of Photography Colorist: Never completed Objective Vital Signs Date Time Temp Pulse Resp B/P (MAP) Pulse Ox O2 Delivery O2 Flow Rate FiO2 05/09/17 10:00 81 05/09/17 09:00 83 05/09/17 08:00 97.6 88 16 153/97 (115) 98 05/09/17 08:00 95 Room Air 05/09/17 08:00 88 05/09/17 07:00 85 05/09/17 06:00 86 05/09/17 05:00 85 05/09/17 04:55 87 05/09/17 03:29 85 05/09/17 03:00 97.6 88 16 153/97 (115) 98 05/09/17 02:14 82 05/09/17 01:00 94 05/09/17 00:00 90 05/08/17 23:00 97 05/08/17 23:00 97.8 90 16 129/71 (90) 100 05/08/17 22:00 90 05/08/17 21:00 84 05/08/17 20:00 97 05/08/17 20:00 97.8 89 16 132/68 (89) 100 05/08/17 19:30 100 Room Air 05/08/17 19:30 95 05/08/17 17:00 72 05/08/17 16:00 76 05/08/17 15:36 88 20 141/91 (108) 98 05/08/17 15:00 80 05/08/17 14:00 70 05/08/17 13:00 80 05/08/17 12:36 60 20 131/75 (93) 98 05/08/17 12:00 82 05/08/17 11:00 88 Intake & Output 05/09/17 05/09/17 07:00 19:00 Intake Total 240 ml Output Total 750 ml Balance -510 ml Intake Oral 240 ml Output Urine Total 750 ml # Bowel Movements 2 Physical Exam CONSTITUTIONAL/GENERAL: This is an elderly frail patient SKIN: No jaundice, eschar Skin temperature appropriate. Not diaphoretic. HEAD: Atraumatic. Normocephalic. EYES: Pupils equal and round and reactive. Extraocular motions intact. No scleral icterus. No injection or drainage. Fundi not examined. ENT: Hearing grossly normal. Nose without bleeding or purulent drainage. Throat without visible erythema, exudates, masses, or lesions. NECK: Trachea midline. Supple, nontender. No palpable thyroid enlargement or nodularity. CARDIOVASCULAR: Regular rate and rhythm without murmurs, gallops, or rubs. No JVD. Peripheral pulses symmetric. RESPIRATORY/CHEST: Symmetric, unlabored respirations. Clear to auscultation. Breath sounds equal bilaterally. No wheezes, rales, or rhonchi. GASTROINTESTINAL: Abdomen soft, non-tender, nondistended. No hepato-splenomegaly , or palpable masses. No guarding. Bowel sounds present. GENITOURINARY: Without palpable bladder distension. Anders catheter in place. MUSCULOSKELETAL: Extremities without clubbing, cyanosis, or edema. Tenderness around right need, worse with extension or flexion. LYMPHATICS: No palpable cervical or supraclavicular adenopathy. NEUROLOGICAL: Awake and alert. Motor and sensory grossly within normal limits. confused PSYCHIATRIC: No obvious anxiety/depression. no apparent hallucinations or other psychotic thought process. Diagnostic Tests Laboratory Laboratory Tests Test 05/07/17 05:10 05/08/17 06:22 05/09/17 05:39 White Blood Count 9.4 TH/MM3 (4.0-11.0) 9.9 TH/MM3 (4.0-11.0) 10.5 TH/MM3 (4.0-11.0) Red Blood Count 3.39 MIL/MM3 (4.50-5.90) 3.21 MIL/MM3 (4.50-5.90) 3.11 MIL/MM3 (4.50-5.90) Hemoglobin 12.2 GM/DL (13.0-17.0) 11.5 GM/DL (13.0-17.0) 11.2 GM/DL (13.0-17.0) Hematocrit 36.5 % (39.0-51.0) 34.2 % (39.0-51.0) 33.0 % (39.0-51.0) Mean Corpuscular Volume 107.7 FL (80.0-100.0) 106.5 FL (80.0-100.0) 106.3 FL (80.0-100.0) Mean Corpuscular Hemoglobin 36.1 PG (27.0-34.0) 35.9 PG (27.0-34.0) 36.1 PG (27.0-34.0) Mean Corpuscular Hemoglobin Concent 33.5 % (32.0-36.0) 33.7 % (32.0-36.0) 34.0 % (32.0-36.0) Red Cell Distribution Width 14.0 % (11.6-17.2) 14.0 % (11.6-17.2) 13.9 % (11.6-17.2) Platelet Count 164 TH/MM3 (150-450) 188 TH/MM3 (150-450) 230 TH/MM3 (150-450) Mean Platelet Volume 9.3 FL (7.0-11.0) 9.8 FL (7.0-11.0) 9.4 FL (7.0-11.0) Blood Urea Nitrogen 22 MG/DL (7-18) 14 MG/DL (7-18) 14 MG/DL (7-18) Creatinine 1.09 MG/DL (0.60-1.30) 0.96 MG/DL (0.60-1.30) 0.99 MG/DL (0.60-1.30) Random Glucose 91 MG/DL (74-106) 205 MG/DL (74-106) 108 MG/DL (74-106) Calcium Level 7.8 MG/DL (8.5-10.1) 7.6 MG/DL (8.5-10.1) 8.2 MG/DL (8.5-10.1) Phosphorus Level 1.7 MG/DL (2.5-4.9) 1.9 MG/DL (2.5-4.9) Magnesium Level 1.9 MG/DL (1.5-2.5) 1.7 MG/DL (1.5-2.5) Sodium Level 141 MEQ/L (136-145) 136 MEQ/L (136-145) 142 MEQ/L (136-145) Potassium Level 4.3 MEQ/L (3.5-5.1) 5.5 MEQ/L (3.5-5.1) 3.6 MEQ/L (3.5-5.1) Chloride Level 112 MEQ/L (98-107) 108 MEQ/L (98-107) 111 MEQ/L (98-107) Carbon Dioxide Level 21.4 MEQ/L (21.0-32.0) 21.9 MEQ/L (21.0-32.0) 21.6 MEQ/L (21.0-32.0) Anion Gap 8 MEQ/L (5-15) 6 MEQ/L (5-15) 9 MEQ/L (5-15) Estimat Glomerular Filtration Rate 58 ML/MIN (>89) 74 ML/MIN (>89) 72 ML/MIN (>89) Neutrophils (%) (Auto) 82.6 % (16.0-70.0) 81.0 % (16.0-70.0) Lymphocytes (%) (Auto) 6.5 % (9.0-44.0) 7.4 % (9.0-44.0) Monocytes (%) (Auto) 9.0 % (0.0-8.0) 9.8 % (0.0-8.0) Eosinophils (%) (Auto) 1.4 % (0.0-4.0) 1.1 % (0.0-4.0) Basophils (%) (Auto) 0.5 % (0.0-2.0) 0.7 % (0.0-2.0) Neutrophils # (Auto) 8.2 TH/MM3 (1.8-7.7) 8.5 TH/MM3 (1.8-7.7) Lymphocytes # (Auto) 0.6 TH/MM3 (1.0-4.8) 0.8 TH/MM3 (1.0-4.8) Monocytes # (Auto) 0.9 TH/MM3 (0-0.9) 1.0 TH/MM3 (0-0.9) Eosinophils # (Auto) 0.1 TH/MM3 (0-0.4) 0.1 TH/MM3 (0-0.4) Basophils # (Auto) 0.0 TH/MM3 (0-0.2) 0.1 TH/MM3 (0-0.2) CBC Comment AUTO DIFF AUTO DIFF Differential Total Cells Counted 100 100 Neutrophils % (Manual) 78 % (16-70) 79 % (16-70) Band Neutrophils % 6 % (0-6) 2 % (0-6) Lymphocytes % 8 % (9-44) 5 % (9-44) Monocytes % 7 % (0-8) 9 % (0-8) Neutrophils # (Manual) 8.4 TH/MM3 (1.8-7.7) 8.8 TH/MM3 (1.8-7.7) Myelocytes 1 % (0-0) 3 % (0-0) Differential Comment FINAL DIFF MANUAL FINAL DIFF MANUAL Platelet Estimate NORMAL (NORMAL) NORMAL (NORMAL) Platelet Morphology Comment NORMAL (NORMAL) ENLARGED (NORMAL) Eosinophils % 1 % (0-4) Basophils % 1 % (0-2) Toxic Granulation 1+ (NORMAL) Result Diagram: 05/09/17 0539 05/09/17 0539 Imaging Last Impressions Maxillofacial CT 05/04/171720 Signed Impressions: Service Date/Time: Thursday, May 04, 2017 18:46 - CONCLUSION: Intact facial bones. Mild, chronic-appearing maxillary sinusitis. Edgar Bae MD Head CT 05/04/171720 Signed Impressions: Service Date/Time: Thursday, May 04, 2017 18:46 - CONCLUSION: No acute intracranial abnormality. Chronic white matter changes. Edgar Bae MD Chest CT 05/04/171720 Signed Impressions: Service Date/Time: Thursday, May 04, 2017 18:54 - CONCLUSION: No evidence of acute thoracic injury. Trace left base atelectasis. Coronary artery calcification. Edgar Bae MD Cervical Spine CT 05/04/17 172 Signed Impressions: Service Date/Time: Thursday, May 04, 2017 18:46 - CONCLUSION: Severe multilevel degenerative changes. No fracture or subluxation of the cervical spine. Edgar Bae MD Abdomen/Pelvis CT 05/04/17 1721 Signed Impressions: Service Date/Time: Thursday, May 04, 2017 18:54 - CONCLUSION: 1. No evidence of acute injury of the abdomen or pelvis. 2. Mild fatty infiltration of the liver. Edgar Bae MD Assessment and Plan Disease Oriented Problem List: (1) Acute kidney failure Comment: resolved (2) Rhabdomyolysis (3) Altered mental status (4) Metabolic acidosis (5) Severe hypernatremia (6) Severe hypokalemia (7) Alcohol dependence with alcohol-induced persisting dementia (8) Delirium due to multiple etiologies Symptom Scale: (1) Pain 0-10 Scale: Unable to quantify Comment: pain right knee. Pertinent Non-Medical Issues Psychosocial: Spiritual: Legal: Ethical issues impacting care: Important Contacts none Prognosis 87 year old with worsening dementia, risk of falls came in with alter mental status, acute renal failure, rhambdomylosis. Remains very confused, fall risk. If pt/family/ friend goals of care are comfort oriented is appropriate for hospice. Code Status: Full Code Plan == capacity- I continue to agree with neuropsych eval, pt does not have capacity to make medical decisions. == Decision maker. Pt is . Please refer to case management and social work associate note. He has no biological children to the best of our knowledge. His who has past away has a son from a previous marriage, for which there is no name and reportedly estranged. No family could be found. The only person available is a friend/neighbor Aleksandra. Auto Washer Discussed with her per [place] Statutes health care proxy decision making would fall to a close friend as there is no family. At this time she is willing to serve in this role as medical proxy decision maker. Ebony Carney [phone] is the healthcare proxy. == goals of care: Proxy is pending further discussion with her . She endorse that after Mr. Eddy's had , he displayed behavior in which he "had given up and wanted to join [employer]." They are considering code status, and also rehab vs hospice. == confusion- due to renal insufficiency, and maybe underlying etoh. There is underlying dementia as Ebony stated that pt has been having a difficulty time remember names, even hers.. ==palliative care will follow. d/w attending. Informed him of pain with pt's right leg, knee. Time Spent Total Floor Time (mins): 35 Face to Face Time (mins): 20 >50% Counseling/Coord of Care: No Attestation To help prompt me to consider important information that might be impacting today's encounter and assessment, information from prior notes written by myself or my colleagues may have been "brought forward" into today's note. My signature on this note, however, is an attestation that I personally performed the exam, history, and/or decision-making noted today, and, unless otherwise indicated, the interactions with patient, family, and staff as well as the review of records all occurred today. I also attest that the listed assessment and stated plan reflect my best clinical judgment today based on the combination of historical information, prior notes, and today's exam/ interactions. When time spent is documented, it refers only to time spent today by the signer, or if indicated, combined time spent today by collaborating physician/nurse practitioner. Blaise Cassidy MD May 09, 2017 10:42
--- NOTE | 2017-05-09 11:11 | HHI.PR ---
Neuropsych Emotional Emotional: Intact: Emotional, Anxious/Fearful, Depressed/Sad, Hostile/Resentful , Irritable/Angry/Frustrate, Labile, Constricted/Blunted Behavior Behavior: Intact: Behavior, Coping/Acceptance, Cooperative w/ Treatment, Motivation, Frustration Tolerance/[place], Suicidal/Homicidal Risk, Mild: Impulsive/ Agitated Cognitive Cognitive: Severe: Cognitive, Attention/Concentration, Confused/Orientation, Insight/Awareness, Judgement/Problem-Solving, Memory Psychosocial Psychosocial: Severe: Psychosocial, Family/Other Adjustment, Realistic Expectation, Unable to Asses: Self-Esteem/Confidence Progress Notes/Response to Tx Contents of Sessions: Adjustment Time with Patient: 30 minutes Premorbid psychological status Premorbid Cognitive, Emotional and Behavioral Status: Stable. 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 The patient has no known psychiatric difficulties, as described above. Substance abuse history includes alcohol dependence. Behavioral Reactions of Patient and Family/Support System: Unable to Assess. The patient has no family. Emotional/Behavioral Status of Patient and Family/Support System: Unable to Assess. Pertinent issues, if appropriate to this patients clinical care, are described in detail above. Maximizing acute care outcome It is recommended that the patient be monitored for emergent behavioral impulsivity as the medical condition evolves. This patients neuropathological challenges may limit their rehabilitation potential going forward, and these challenges will require specialized therapeutic skills to maximize outcome. Anticipated Problems Ongoing areas of concern will include behavioral impulsivity, lack of insight and judgment, which is expected to improve with time and treatment. Presently , the patient is following only one-step commands. Treatment Plan This clinician will continue to follow with you throughout the course of this patients rehabilitation treatment, and I will be available to meet with the patients family/support system to facilitate their understanding and the ongoing care of their family member. The goals of neuropsychological intervention shall be both educational and supportive to the family/support system as is deemed clinically appropriate. Impression This unknown aged (possibly 80s) man was found unconscious lying in his home for over seven days, in a dehydrated and malnourished state, and continues to show persistent neurocognitive deficits. 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 His , and he has been living alone; he has no children. His medical history is unknown. There is a strong suspicion of alcohol dependence and underlying unresolved clinical depression. Diagnostically, I would infer a delirium due to multiple causes superimposed on an underlying alcohol-related dementia, and confounded by clinical depression. 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 Brief discussion with the patient's neighbor, who was bedside. The patient remains with pervasive neurocognitive impairments, orientation only to person, fluctuating attention and focus, poor carryover, but relatively retained language skills. Complex reasoning abilities remain impaired. Emotionally, he is euthymic but confused, and remains compliant. He was attempting to remove his leads from his body, but was able to be redirected. While his cognition has improved to some degree, it remains my clinical opinion that this patient is not considered to possess cognitive capacity to make decisions of a legal, financial or medical nature at this point in his recovery process due to his persistent underlying neurocognitive deficits. Presently, he is unable to appreciate a situation or its likely consequences, and he is unable to demonstrate the ability to manipulate information rationally. He does not appear capable to managing his own funds. His cognitive capacity still may change during the course of his hospital stay, and I will continue to see the patient and assess for capacity throughout his stay. It would be my clinical opinion that he will require a trusted other to make decisions for him going forward. I will continue to follow. Prince Espitia PhD May 09, 2017 11:04
--- NOTE | 2017-05-09 11:19 | HHI.PR ---
Subjective Remarks Critical Care Notes: Patient is an elderly chronically ill-appearing male who was brought in by EMS after neighbors noticed that his garbage had been accumulating. EMS found him lying prone on carpet probably been down for 7-8 days, he was found in his own feces and urine. He had extensive skin break down is on disability and was very dehydrated, and he lives alone. CT of the head and C- spine was negative. Lab work showed multiple critical abnormalities BUN 66, Creat 1.46, Calcium 5.6, Na 163, K 2.3, Bicarb 15.6, and trop 0.2. White count was elevated at 14.7 with left shift. Critical care was consulted for admission Deep tissue injury to the face, Anterior abdomen, bilateral knees, and areas of black eschar formation, has Multiorgan failure and prognosis is guarded. 05/05: No acute events overnight. The patient is oriented to name only. Patient noted to be hypernatremic serial sodium being obtained. Swallow study pending in a.m. plan neurology consult, and neuropsychologist consult. 05/06: No acute events overnight. Will status unchanged patient alert to self only still extremely weak. Diet advance this a.m. after evaluation by speech therapy. Cognitive evaluation pending. Hospitalist Notes: 05/07: Seen in Intensive Care unit, patient Lethargic, difficult to arouse, discussed with nurse, continue Neuropsychology following. asked for it training specialist. 05/08: Seen in his bedroom stable no complaint, regained consciousness, will continue to work with Physical Therapy and continue general diet and added Ensure. 05/09: Stable seen in his bedroom, continue confused, followed by Palliative care. seen in the presence of nurse Miss [place]. Objective Vital Signs Date Time Temp Pulse Resp B/P (MAP) Pulse Ox O2 Delivery O2 Flow Rate FiO2 05/09/17 11:04 98 05/09/17 10:00 81 05/09/17 09:00 83 05/09/17 08:00 97.6 88 16 153/97 (115) 98 05/09/17 08:00 95 Room Air 05/09/17 08:00 88 05/09/17 07:00 85 05/09/17 06:00 86 05/09/17 05:00 85 05/09/17 04:55 87 05/09/17 03:29 85 05/09/17 03:00 97.6 88 16 153/97 (115) 98 05/09/17 02:14 82 05/09/17 01:00 94 05/09/17 00:00 90 05/08/17 23:00 97 05/08/17 23:00 97.8 90 16 129/71 (90) 100 05/08/17 22:00 90 05/08/17 21:00 84 05/08/17 20:00 97 05/08/17 20:00 97.8 89 16 132/68 (89) 100 05/08/17 19:30 100 Room Air 05/08/17 19:30 95 05/08/17 17:00 72 05/08/17 16:00 76 05/08/17 15:36 88 20 141/91 (108) 98 05/08/17 15:00 80 05/08/17 14:00 70 05/08/17 13:00 80 05/08/17 12:36 60 20 131/75 (93) 98 05/08/17 12:00 82 I/O 05/08/17 05/08/17 05/08/17 05/09/17 05/09/17 05/09/17 07:00 15:00 23:00 07:00 15:00 23:00 Intake Total 1510 ml 185 ml 2080 ml 240 ml Output Total 1410 ml 1600 ml 750 ml Balance 100 ml 185 ml 480 ml -510 ml Intake Oral 480 ml 980 ml 240 ml IV Total 1030 ml 185 ml 1100 ml Output Urine Total 1410 ml 1600 ml 750 ml # Bowel Movements 0 2 2 Result Diagram: 05/09/17 0539 05/09/17 0539 Imaging Last Impressions Maxillofacial CT 05/04/171720 Signed Impressions: Service Date/Time: Thursday, May 04, 2017 18:46 - CONCLUSION: Intact facial bones. Mild, chronic-appearing maxillary sinusitis. Edgar Bae MD Head CT 05/04/171720 Signed Impressions: Service Date/Time: Thursday, May 04, 2017 18:46 - CONCLUSION: No acute intracranial abnormality. Chronic white matter changes. Edgra Bae MD Chest CT 05/04/171720 Signed Impressions: Service Date/Time: Thursday, May 04, 2017 18:54 - CONCLUSION: No evidence of acute thoracic injury. Trace left base atelectasis. Coronary artery calcification. Edgar Bae MD Cervical Spine CT 05/04/171720 Signed Impressions: Service Date/Time: Thursday, May 04, 2017 18:46 - CONCLUSION: Severe multilevel degenerative changes. No fracture or subluxation of the cervical spine. Edgar Bae MD Abdomen/Pelvis CT 05/04/17 172 Signed Impressions: Service Date/Time: Thursday, May 04, 2017 18:54 - CONCLUSION: 1. No evidence of acute injury of the abdomen or pelvis. 2. Mild fatty infiltration of the liver. Edgar Bae MD Procedures None Other Results Laboratory Tests Test 05/04/17 17:30 05/04/17 17:50 05/04/17 18:25 05/04/17 21:30 Prothrombin Time 11.0 SEC Prothromb Time International Ratio 1.0 RATIO Activated Partial Thromboplast Time 21.5 SEC Urine Color YELLOW Urine Turbidity HAZY Urine pH 5.5 Urine Specific [place] 1.021 Urine Protein 30 mg/dL Urine Glucose (UA) NEG mg/dL Urine Ketones TRACE mg/dL Urine Occult Blood NEG Urine Nitrite NEG Urine Bilirubin NEG Urine Urobilinogen 2.0 MG/DL Urine Leukocyte Esterase NEG Urine RBC 1 /hpf Urine WBC 2 /hpf Urine Bacteria NONE /hpf Urine Hyaline Casts 3 /lpf Urine Mucus FEW /lpf Microscopic Urinalysis Comment CULT NOT INDICATED Lactic Acid Level 2.0 mmol/L Vitamin B12 Level 820 PG/ML Thyroid Stimulating Hormone 3rd Gen 1.180 uIU/ML Test 05/05/17 02:00 05/05/17 02:08 05/06/17 05:25 05/08/17 06:22 Nasal Screen MRSA (PCR) MRSA NOT DETECTED Blood Urea Nitrogen 87 MG/DL 41 MG/DL 14 MG/DL Creatinine 2.01 MG/DL 1.23 MG/DL 0.96 MG/DL Random Glucose 126 MG/DL 120 MG/DL 205 MG/DL Total Protein 5.7 GM/DL 5.2 GM/DL Albumin 2.2 GM/DL Calcium Level 7.9 MG/DL 7.4 MG/DL 7.6 MG/DL Magnesium Level 2.5 MG/DL 2.0 MG/DL 1.7 MG/DL Alkaline Phosphatase 44 U/L Aspartate Amino Transf (AST/SGOT) 32 U/L Alanine Aminotransferase (ALT/SGPT) 26 U/L Total Bilirubin 0.6 MG/DL Sodium Level 163 MEQ/L 149 MEQ/L 136 MEQ/L Potassium Level 3.5 MEQ/L 4.1 MEQ/L 5.5 MEQ/L Chloride Level 128 MEQ/L 121 MEQ/L 108 MEQ/L Carbon Dioxide Level 21.5 MEQ/L 20.1 MEQ/L 21.9 MEQ/L Troponin I 0.25 NG/ML Red Blood Cell Folate 465 Protein Corrected Calcium 8.5 MG/DL Total Creatine Kinase 229 U/L Phosphorus Level 1.4 MG/DL 1.9 MG/DL Test 05/09/17 05:39 White Blood Count 10.5 TH/MM3 Red Blood Count 3.11 MIL/MM3 Hemoglobin 11.2 GM/DL Hematocrit 33.0 % Mean Corpuscular Volume 106.3 FL Mean Corpuscular Hemoglobin 36.1 PG Mean Corpuscular Hemoglobin Concent 34.0 % Red Cell Distribution Width 13.9 % Platelet Count 230 TH/MM3 Mean Platelet Volume 9.4 FL Neutrophils (%) (Auto) 81.0 % Lymphocytes (%) (Auto) 7.4 % Monocytes (%) (Auto) 9.8 % Eosinophils (%) (Auto) 1.1 % Basophils (%) (Auto) 0.7 % Neutrophils # (Auto) 8.5 TH/MM3 Lymphocytes # (Auto) 0.8 TH/MM3 Monocytes # (Auto) 1.0 TH/MM3 Eosinophils # (Auto) 0.1 TH/MM3 Basophils # (Auto) 0.1 TH/MM3 CBC Comment AUTO DIFF Differential Total Cells Counted 100 Neutrophils % (Manual) 79 % Band Neutrophils % 2 % Lymphocytes % 5 % Monocytes % 9 % Eosinophils % 1 % Basophils % 1 % Neutrophils # (Manual) 8.8 TH/MM3 Myelocytes 3 % Differential Comment FINAL DIFF MANUAL Toxic Granulation 1+ Platelet Estimate NORMAL Platelet Morphology Comment ENLARGED Blood Urea Nitrogen 14 MG/DL Creatinine 0.99 MG/DL Random Glucose 108 MG/DL Calcium Level 8.2 MG/DL Sodium Level 142 MEQ/L Potassium Level 3.6 MEQ/L Chloride Level 111 MEQ/L Carbon Dioxide Level 21.6 MEQ/L Anion Gap 9 MEQ/L Estimat Glomerular Filtration Rate 72 ML/MIN Objective Remarks GENERAL: alert oriented in person, no acute distress, eating well. SKIN: Extensive skin break down erythema and deep tissue injury on face lower chest, anterior abdomen, bilateral knees and bilateral knees. Multiple areas of black eschar formation. Skin very dry HEAD: Atraumatic. Normocephalic. EYES: Pupils equal and round. No scleral icterus. Positive arcus senilis ENT: No nasal bleeding or discharge. Mucous membranes dry NECK: Trachea midline. No JVD. CARDIOVASCULAR: Tachycardic hypertensive. No murmur appreciated. Sinus rhythm on EKG RESPIRATORY: No accessory muscle use. Clear to auscultation. Breath sounds equal bilaterally. GASTROINTESTINAL: Abdomen soft, non-tender, nondistended. Multiple areas of deep tissue injury MUSCULOSKELETAL: Extensive skin breakdown with deep tissue injury bilateral lower extremities, black eschars noted on bilateral knee and ankle NEUROLOGICAL: alert and no focal deficit. Medications and IVs Current Medications Medications (Trade) Dose Ordered Sig/Monica Route Start Time Stop Time Status Last Admin (NS Flush) 2 ml UNSCH PRN IV FLUSH 05/04/17 20:00 (NS Flush) 2 ml BID IV FLUSH 05/04/17 21:00 05/09/17 09:18 (Tylenol) 650 mg Q6H PRN PO 05/04/17 20:00 (Protonix Inj) 40 mg DAILY IV PUSH 05/05/17 09:00 05/09/17 09:18 (Duoneb Neb) 1 ampule Q2HR NEB PRN INH 05/04/17 20:00 (Lovenox Inj) 30 mg Q24H SQ 05/04/17 20:00 05/08/17 20:37 Miscellaneous Information 1 [id number] XX 05/04/17 20:00 05/04/17 20:00 (Chlorhexidine 2% Cloth) 3 pack Taper DAILY@04 TOP 05/05/17 04:00 05/01/18 03:59 05/07/17 04:00 (Chlorhexidine 2% Cloth) 3 pack UNSCH PRN TOP 05/04/17 20:00 (Lactulose Liq) 30 ml DAILY PRN PO 05/04/17 20:00 Ceftriaxone Sodium 1000 mg/ Sodium Chloride 100 ml @ 200 mls/hr Q24H IV 05/04/17 20:00 05/08/17 20:00 Multivitamins 10 ml/Thiamine HCl 100 mg/Folic Acid 1 mg/Dextrose/ Sodium Chloride 511.2 ml @ 125 mls/hr DAILY IV 05/04/17 21:00 05/09/17 09:17 (Apresoline Inj) 20 mg Q4H PRN IV PUSH 05/04/17 20:30 A/P Assessment and Plan 1. Acute Metabolic Improving, continue Empiric antibiotics, no signs of infection, multiple skin lesions healing properly. - CT head was negative - Continue multivitamin and folate. Patient is at risk for nutritional deficiencies -Neurology following. -patient regained consciousness today, continue present care and follow added Ensure to General diet. - Followed by Sign Poster Doctor Blaise Cassidy appreciated for your help, Patient does not have Capacity to take her own decisions, ing[place] a Healthcare proxy, 2. respiratory insufficiency Improved 3. Hypertension controlled. 4. Probable Alcohol abuse continue Thiamine and Vitamin B12, Folate. 5. Equivocal troponin elevation. 6. Hypernatremia resolved. 7. Extensive deep tissue injury to continue Rocephin and insurance billing specialist management. PROPH: - Bilateral lower extremity SCDs. Lovenox/Protonix Gastric protection continue. Discharge Planning not yet cleared for discharge. Elbert Gramajo MD May 09, 2017 11:19
[2017-05-09] MEDS: ENOXAPARIN SODIUM 30 MG/0.3 ML SYRINGE SQ SCH (21:28)
[2017-05-09] MEDS: cefTRIAXone INJ 1,000 MG in SODIUM CHLORIDE 0.9% INJ 100 ML IV SCH (21:28)
[2017-05-10] VITALS (7 sets, daily range): BP systolic 113–160; BP diastolic 58–84; PULSE 70–87; RESP 15–18; TEMP 95.9–98.5; O2SAT 93–99
[2017-05-10] MEDS: CHLORHEXIDINE GLUCONATE 2 % 1 PACK (2 CLOTHS) TOP SCH (04:00)
[2017-05-10] MEDS: MULTIVITAMIN INJ 10 ML, THIAMINE INJ 100 MG, FOLIC ACID INJ 1 MG in DEXT 5%-NACL 0.9% 5... IV SCH (09:00)
--- NOTE | 2017-05-10 09:20 | HHI.PR ---
Subjective Remarks Critical Care Notes: Patient is an elderly chronically ill-appearing male who was brought in by EMS after neighbors noticed that his garbage had been accumulating. EMS found him lying prone on carpet probably been down for 7-8 days, he was found in his own feces and urine. He had extensive skin break down is on disability and was very dehydrated, and he lives alone. CT of the head and C- spine was negative. Lab work showed multiple critical abnormalities BUN 66, Creat 1.46, Calcium 5.6, Na 163, K 2.3, Bicarb 15.6, and trop 0.2. White count was elevated at 14.7 with left shift. Critical care was consulted for admission Deep tissue injury to the face, Anterior abdomen, bilateral knees, and areas of black eschar formation, has Multiorgan failure and prognosis is guarded. 05/05: No acute events overnight. The patient is oriented to name only. Patient noted to be hypernatremic serial sodium being obtained. Swallow study pending in a.m. plan neurology consult, and neuropsychologist consult. 05/06: No acute events overnight. Will status unchanged patient alert to self only still extremely weak. Diet advance this a.m. after evaluation by speech therapy. Cognitive evaluation pending. Hospitalist Notes: 05/07: Seen in Intensive Care unit, patient Lethargic, difficult to arouse, discussed with nurse, continue Neuropsychology following. asked for patient registration specialist. 05/08: Seen in his bedroom stable no complaint, regained consciousness, will continue to work with Physical Therapy and continue general diet and added Ensure. 05/09: Stable seen in his bedroom, continue confused, followed by Palliative care. 05/10: Seen in his bedroom, stable discussed with training program manager and nurse, no new issues, awaiting for Health Proxy to take decisions about the Patient. Objective Vital Signs Date Time Temp Pulse Resp B/P (MAP) Pulse Ox O2 Delivery O2 Flow Rate FiO2 05/10/17 04:00 98.4 70 15 160/77 (104) 96 05/10/17 00:00 95.9 83 17 160/84 (109) 93 05/09/17 23:55 93 Room Air 05/09/17 22:00 88 05/09/17 21:00 98 05/09/17 20:46 21 05/09/17 20:00 96 05/09/17 19:30 97 Room Air 05/09/17 19:30 98.3 82 18 134/81 (98) 97 05/09/17 19:00 95 05/09/17 18:00 95 05/09/17 17:00 100 05/09/17 16:00 89 05/09/17 16:00 98.2 88 16 128/74 (92) 98 05/09/17 15:00 93 05/09/17 14:00 83 05/09/17 13:00 99 05/09/17 12:00 80 05/09/17 11:25 98.0 88 16 128/74 (92) 98 05/09/17 11:04 98 05/09/17 11:00 89 05/09/17 10:00 81 I/O 05/09/17 05/09/17 05/09/17 05/10/17 05/10/17 05/10/17 07:00 15:00 23:00 07:00 15:00 23:00 Intake Total 240 ml 1450 ml 480 ml Output Total 750 ml 895 ml 600 ml Balance -510 ml 555 ml -120 ml Intake Oral 240 ml 950 ml 480 ml IV Total 500 ml Output Urine Total 750 ml 895 ml 600 ml # Bowel Movements 2 0 0 Result Diagram: 05/09/17 0539 05/09/17 0539 Imaging Last Impressions Maxillofacial CT 05/04/171720 Signed Impressions: Service Date/Time: Thursday, May 04, 2017 18:46 - CONCLUSION: Intact facial bones. Mild, chronic-appearing maxillary sinusitis. Edgar Bae MD Head CT 05/04/171720 Signed Impressions: Service Date/Time: Thursday, May 04, 2017 18:46 - CONCLUSION: No acute intracranial abnormality. Chronic white matter changes. Edgar Bae MD Chest CT 05/04/171720 Signed Impressions: Service Date/Time: Thursday, May 04, 2017 18:54 - CONCLUSION: No evidence of acute thoracic injury. Trace left base atelectasis. Coronary artery calcification. Edgar Bae MD Cervical Spine CT 05/04/171720 Signed Impressions: Service Date/Time: Thursday, May 04, 2017 18:46 - CONCLUSION: Severe multilevel degenerative changes. No fracture or subluxation of the cervical spine. Edgar Bae MD Abdomen/Pelvis CT 05/04/17 1721 Signed Impressions: Service Date/Time: Thursday, May 04, 2017 18:54 - CONCLUSION: 1. No evidence of acute injury of the abdomen or pelvis. 2. Mild fatty infiltration of the liver. Edgar Bae MD Procedures None Other Results Laboratory Tests Test 05/04/17 17:30 05/04/17 17:50 05/04/17 18:25 05/04/17 21:30 Prothrombin Time 11.0 SEC Prothromb Time International Ratio 1.0 RATIO Activated Partial Thromboplast Time 21.5 SEC Urine Color YELLOW Urine Turbidity HAZY Urine pH 5.5 Urine Specific [place] 1.021 Urine Protein 30 mg/dL Urine Glucose (UA) NEG mg/dL Urine Ketones TRACE mg/dL Urine Occult Blood NEG Urine Nitrite NEG Urine Bilirubin NEG Urine Urobilinogen 2.0 MG/DL Urine Leukocyte Esterase NEG Urine RBC 1 /hpf Urine WBC 2 /hpf Urine Bacteria NONE /hpf Urine Hyaline Casts 3 /lpf Urine Mucus FEW /lpf Microscopic Urinalysis Comment CULT NOT INDICATED Lactic Acid Level 2.0 mmol/L Vitamin B12 Level 820 PG/ML Thyroid Stimulating Hormone 3rd Gen 1.180 uIU/ML Test 05/05/17 02:00 05/05/17 02:08 05/06/17 05:25 05/08/17 06:22 Nasal Screen MRSA (PCR) MRSA NOT DETECTED Blood Urea Nitrogen 87 MG/DL 41 MG/DL 14 MG/DL Creatinine 2.01 MG/DL 1.23 MG/DL 0.96 MG/DL Random Glucose 126 MG/DL 120 MG/DL 205 MG/DL Total Protein 5.7 GM/DL 5.2 GM/DL Albumin 2.2 GM/DL Calcium Level 7.9 MG/DL 7.4 MG/DL 7.6 MG/DL Magnesium Level 2.5 MG/DL 2.0 MG/DL 1.7 MG/DL Alkaline Phosphatase 44 U/L Aspartate Amino Transf (AST/SGOT) 32 U/L Alanine Aminotransferase (ALT/SGPT) 26 U/L Total Bilirubin 0.6 MG/DL Sodium Level 163 MEQ/L 149 MEQ/L 136 MEQ/L Potassium Level 3.5 MEQ/L 4.1 MEQ/L 5.5 MEQ/L Chloride Level 128 MEQ/L 121 MEQ/L 108 MEQ/L Carbon Dioxide Level 21.5 MEQ/L 20.1 MEQ/L 21.9 MEQ/L Troponin I 0.25 NG/ML Red Blood Cell Folate 465 Protein Corrected Calcium 8.5 MG/DL Total Creatine Kinase 229 U/L Phosphorus Level 1.4 MG/DL 1.9 MG/DL Test 05/09/17 05:39 White Blood Count 10.5 TH/MM3 Red Blood Count 3.11 MIL/MM3 Hemoglobin 11.2 GM/DL Hematocrit 33.0 % Mean Corpuscular Volume 106.3 FL Mean Corpuscular Hemoglobin 36.1 PG Mean Corpuscular Hemoglobin Concent 34.0 % Red Cell Distribution Width 13.9 % Platelet Count 230 TH/MM3 Mean Platelet Volume 9.4 FL Neutrophils (%) (Auto) 81.0 % Lymphocytes (%) (Auto) 7.4 % Monocytes (%) (Auto) 9.8 % Eosinophils (%) (Auto) 1.1 % Basophils (%) (Auto) 0.7 % Neutrophils # (Auto) 8.5 TH/MM3 Lymphocytes # (Auto) 0.8 TH/MM3 Monocytes # (Auto) 1.0 TH/MM3 Eosinophils # (Auto) 0.1 TH/MM3 Basophils # (Auto) 0.1 TH/MM3 CBC Comment AUTO DIFF Differential Total Cells Counted 100 Neutrophils % (Manual) 79 % Band Neutrophils % 2 % Lymphocytes % 5 % Monocytes % 9 % Eosinophils % 1 % Basophils % 1 % Neutrophils # (Manual) 8.8 TH/MM3 Myelocytes 3 % Differential Comment FINAL DIFF MANUAL Toxic Granulation 1+ Platelet Estimate NORMAL Platelet Morphology Comment ENLARGED Blood Urea Nitrogen 14 MG/DL Creatinine 0.99 MG/DL Random Glucose 108 MG/DL Calcium Level 8.2 MG/DL Sodium Level 142 MEQ/L Potassium Level 3.6 MEQ/L Chloride Level 111 MEQ/L Carbon Dioxide Level 21.6 MEQ/L Anion Gap 9 MEQ/L Estimat Glomerular Filtration Rate 72 ML/MIN Hemoglobin A1c 5.4 % Objective Remarks GENERAL: alert oriented in person, no acute distress, eating well. SKIN: Extensive skin break down erythema and deep tissue injury on face lower chest, anterior abdomen, bilateral knees and bilateral knees. Multiple areas of black eschar formation. Skin very dry HEAD: Atraumatic. Normocephalic. EYES: Pupils equal and round. No scleral icterus. Positive arcus senilis ENT: No nasal bleeding or discharge. Mucous membranes dry NECK: Trachea midline. No JVD. CARDIOVASCULAR: Tachycardic hypertensive. No murmur appreciated. Sinus rhythm on EKG RESPIRATORY: No accessory muscle use. Clear to auscultation. Breath sounds equal bilaterally. GASTROINTESTINAL: Abdomen soft, non-tender, nondistended. Multiple areas of deep tissue injury MUSCULOSKELETAL: Extensive skin breakdown with deep tissue injury bilateral lower extremities, black eschars noted on bilateral knee and ankle NEUROLOGICAL: alert and no focal deficit. Medications and IVs Current Medications Medications (Trade) Dose Ordered Sig/Monica Route Start Time Stop Time Status Last Admin (NS Flush) 2 ml UNSCH PRN IV FLUSH 05/04/17 20:00 (NS Flush) 2 ml BID IV FLUSH 05/04/17 21:00 05/09/17 21:28 (Tylenol) 650 mg Q6H PRN PO 05/04/17 20:00 (Protonix Inj) 40 mg DAILY IV PUSH 05/05/17 09:00 05/09/17 09:18 (Duoneb Neb) 1 ampule Q2HR NEB PRN INH 05/04/17 20:00 (Lovenox Inj) 30 mg Q24H SQ 05/04/17 20:00 05/09/17 21:28 Miscellaneous Information 1 Q361D XX 05/04/17 20:00 05/04/17 20:00 (Chlorhexidine 2% Cloth) Taper DAILY@04 TOP 05/05/17 04:00 05/01/18 03:59 05/07/17 04:00 (Chlorhexidine 2% Cloth) 3 pack UNSCH PRN TOP 05/04/17 20:00 (Lactulose Liq) 30 ml DAILY PRN PO 05/04/17 20:00 Ceftriaxone Sodium 1000 mg/ Sodium Chloride 100 ml @ 200 mls/hr Q24H IV 05/04/17 20:00 05/09/17 21:28 Multivitamins 10 ml/Thiamine HCl 100 mg/Folic Acid 1 mg/Dextrose/ Sodium Chloride 511.2 ml @ 125 mls/hr DAILY IV 05/04/17 21:00 05/09/17 09:17 (Apresoline Inj) 20 mg Q4H PRN IV PUSH 05/04/17 20:30 A/P Assessment and Plan 1. Acute Metabolic Improving, continue Empiric antibiotics, no signs of infection, multiple skin lesions healing properly. - CT head was negative - Continue multivitamin and folate. Patient is at risk for nutritional deficiencies -Neurology following. -patient regained consciousness today, continue present care and follow added Ensure to General diet. - Followed by Picker Machine Operator Doctor Blaise Cassidy appreciated for your help, Patient does not have Capacity to take her own decisions, has a Healthcare proxy, 2. respiratory insufficiency Improved 3. Hypertension controlled. 4. Probable Alcohol abuse continue Thiamine and Vitamin B12, Folate. 5. Equivocal troponin elevation. 6. Hypernatremia resolved. 7. Extensive deep tissue injury to continue Rocephin and produce specialist management. PROPH: - Bilateral lower extremity SCDs. Lovenox/Protonix Gastric protection continue. Discharge Planning not yet cleared for discharge. Elbert Gramajo MD May 10, 2017 09:20
[2017-05-10] MEDS: PANTOPRAZOLE SODIUM 40 MG VIAL IV PUSH SCH (10:25)
[2017-05-10] MEDS: SODIUM CHLORIDE 0.9% FLUSH 10 ML FLUSH IV FLUSH SCH ×2 (10:26→22:05)
--- NOTE | 2017-05-10 12:53 | HHI.HCPN ---
Reason for visit a. To assist with evaluation and management of symptoms including:confusion b. To assist medical decision maker(s) with: better understanding of current medical conditions; weighing benefits/burdens of medical treatment options; making medical treatment decisions. Subjective/Interval History Pt is alert, but remain very confused. He said he met me in his dream. He did not mention right knee pain today, and when I ask him, he looked at be very confused. He ask assitance to help with his sandwich. Family/friend interactions Called beth Beck. Advance Directives Living Will: Never completed Health Care Surrogate: Never completed Durable Power of Plane Captain: Never completed Objective Vital Signs Date Time Temp Pulse Resp B/P (MAP) Pulse Ox O2 Delivery O2 Flow Rate FiO2 05/10/17 09:00 95 21 05/10/17 08:00 98.5 73 16 157/78 (104) 97 05/10/17 04:00 98.4 70 15 160/77 (104) 96 05/10/17 00:00 95.9 83 17 160/84 (109) 93 05/09/17 23:55 93 Room Air 05/09/17 22:00 88 05/09/17 21:00 98 05/09/17 20:46 21 05/09/17 20:00 96 05/09/17 19:30 97 Room Air 05/09/17 19:30 98.3 82 18 134/81 (98) 97 05/09/17 19:00 95 05/09/17 18:00 95 05/09/17 17:00 100 05/09/17 16:00 89 05/09/17 16:00 98.2 88 16 128/74 (92) 98 05/09/17 15:00 93 05/09/17 14:00 83 05/09/17 13:00 99 Intake & Output 05/10/17 05/10/17 07:00 19:00 Intake Total 480 ml Output Total 600 ml Balance -120 ml Intake Oral 480 ml Output Urine Total 600 ml # Bowel Movements 0 Physical Exam CONSTITUTIONAL/GENERAL: This is an elderly frail patient SKIN: No jaundice, eschar Skin temperature appropriate. Not diaphoretic. HEAD: Atraumatic. Normocephalic. EYES: Pupils equal and round and reactive. Extraocular motions intact. No scleral icterus. No injection or drainage. Fundi not examined. ENT: Hearing grossly normal. Nose without bleeding or purulent drainage. Throat without visible erythema, exudates, masses, or lesions. NECK: Trachea midline. Supple, nontender. No palpable thyroid enlargement or nodularity. CARDIOVASCULAR: Regular rate and rhythm without murmurs, gallops, or rubs. No JVD. Peripheral pulses symmetric. RESPIRATORY/CHEST: Symmetric, unlabored respirations. Clear to auscultation. Breath sounds equal bilaterally. No wheezes, rales, or rhonchi. GASTROINTESTINAL: Abdomen soft, non-tender, nondistended. No hepato-splenomegaly , or palpable masses. No guarding. Bowel sounds present. GENITOURINARY: Without palpable bladder distension. Anders catheter in place. MUSCULOSKELETAL: Extremities without clubbing, cyanosis, or edema. Tenderness around right need, worse with extension or flexion. LYMPHATICS: No palpable cervical or supraclavicular adenopathy. NEUROLOGICAL: Awake and alert. Motor and sensory grossly within normal limits. confused PSYCHIATRIC: No obvious anxiety/depression. no apparent hallucinations or other psychotic thought process. Diagnostic Tests Laboratory Laboratory Tests Test 05/08/17 06:22 05/09/17 05:39 White Blood Count 9.9 TH/MM3 (4.0-11.0) 10.5 TH/MM3 (4.0-11.0) Red Blood Count 3.21 MIL/MM3 (4.50-5.90) 3.11 MIL/MM3 (4.50-5.90) Hemoglobin 11.5 GM/DL (13.0-17.0) 11.2 GM/DL (13.0-17.0) Hematocrit 34.2 % (39.0-51.0) 33.0 % (39.0-51.0) Mean Corpuscular Volume 106.5 FL (80.0-100.0) 106.3 FL (80.0-100.0) Mean Corpuscular Hemoglobin 35.9 PG (27.0-34.0) 36.1 PG (27.0-34.0) Mean Corpuscular Hemoglobin Concent 33.7 % (32.0-36.0) 34.0 % (32.0-36.0) Red Cell Distribution Width 14.0 % (11.6-17.2) 13.9 % (11.6-17.2) Platelet Count 188 TH/MM3 (150-450) 230 TH/MM3 (150-450) Mean Platelet Volume 9.8 FL (7.0-11.0) 9.4 FL (7.0-11.0) Neutrophils (%) (Auto) 82.6 % (16.0-70.0) 81.0 % (16.0-70.0) Lymphocytes (%) (Auto) 6.5 % (9.0-44.0) 7.4 % (9.0-44.0) Monocytes (%) (Auto) 9.0 % (0.0-8.0) 9.8 % (0.0-8.0) Eosinophils (%) (Auto) 1.4 % (0.0-4.0) 1.1 % (0.0-4.0) Basophils (%) (Auto) 0.5 % (0.0-2.0) 0.7 % (0.0-2.0) Neutrophils # (Auto) 8.2 TH/MM3 (1.8-7.7) 8.5 TH/MM3 (1.8-7.7) Lymphocytes # (Auto) 0.6 TH/MM3 (1.0-4.8) 0.8 TH/MM3 (1.0-4.8) Monocytes # (Auto) 0.9 TH/MM3 (0-0.9) 1.0 TH/MM3 (0-0.9) Eosinophils # (Auto) 0.1 TH/MM3 (0-0.4) 0.1 TH/MM3 (0-0.4) Basophils # (Auto) 0.0 TH/MM3 (0-0.2) 0.1 TH/MM3 (0-0.2) CBC Comment AUTO DIFF AUTO DIFF Differential Total Cells Counted 100 100 Neutrophils % (Manual) 78 % (16-70) 79 % (16-70) Band Neutrophils % 6 % (0-6) 2 % (0-6) Lymphocytes % 8 % (9-44) 5 % (9-44) Monocytes % 7 % (0-8) 9 % (0-8) Neutrophils # (Manual) 8.4 TH/MM3 (1.8-7.7) 8.8 TH/MM3 (1.8-7.7) Myelocytes 1 % (0-0) 3 % (0-0) Differential Comment FINAL DIFF MANUAL FINAL DIFF MANUAL Platelet Estimate NORMAL (NORMAL) NORMAL (NORMAL) Platelet Morphology Comment NORMAL (NORMAL) ENLARGED (NORMAL) Blood Urea Nitrogen 14 MG/DL (7-18) 14 MG/DL (7-18) Creatinine 0.96 MG/DL (0.60-1.30) 0.99 MG/DL (0.60-1.30) Random Glucose 205 MG/DL (74-106) 108 MG/DL (74-106) Calcium Level 7.6 MG/DL (8.5-10.1) 8.2 MG/DL (8.5-10.1) Phosphorus Level 1.9 MG/DL (2.5-4.9) Magnesium Level 1.7 MG/DL (1.5-2.5) Sodium Level 136 MEQ/L (136-145) 142 MEQ/L (136-145) Potassium Level 5.5 MEQ/L (3.5-5.1) 3.6 MEQ/L (3.5-5.1) Chloride Level 108 MEQ/L (98-107) 111 MEQ/L (98-107) Carbon Dioxide Level 21.9 MEQ/L (21.0-32.0) 21.6 MEQ/L (21.0-32.0) Anion Gap 6 MEQ/L (5-15) 9 MEQ/L (5-15) Estimat Glomerular Filtration Rate 74 ML/MIN (>89) 72 ML/MIN (>89) Eosinophils % 1 % (0-4) Basophils % 1 % (0-2) Toxic Granulation 1+ (NORMAL) Hemoglobin A1c 5.4 % (4.3-6.0) Result Diagram: 05/09/17 0539 05/09/17 0539 Assessment and Plan Disease Oriented Problem List: (1) Acute kidney failure Comment: resolved (2) Rhabdomyolysis (3) Altered mental status (4) Metabolic acidosis (5) Severe hypernatremia (6) Severe hypokalemia (7) Alcohol dependence with alcohol-induced persisting dementia (8) Delirium due to multiple etiologies Symptom Scale: (1) Pain 0-10 Scale: Unable to quantify Comment: pain right knee. Pertinent Non-Medical Issues Psychosocial: Spiritual: Legal: Ethical issues impacting care: Important Contacts 87 year old with dementia, that was found unresponsive in feces and urine, with acute renal insufficiency. Pt's proxy feels pt memory has significantly decline. Although dementia does not meet end stage criteria of Alzheimers of FAST 7C. given his Prognosis 87 year old with worsening dementia, risk of falls came in with alter mental status, acute renal failure, rhambdomylosis. Remains very confused, fall risk. If pt/family/ friend goals of care are comfort oriented is appropriate for hospice. Code Status: Full Code Plan == capacity-Pt does not have capacity to make medical decisions, and likely will not. Per friend/neighbor, pt has exhibits signs of memory problems long before hospitalization. == DNR == Decision maker. Pt is . Please refer to case management and manager social responsibility note. He has no biological children to the best of our knowledge. His who has past away has a son from a previous marriage, for which there is no name and reportedly estranged. No family could be found. The only person available is a friend/neighbor Aleksandra. Plastic Technician Discussed with her per [place] Statutes health care proxy decision making would fall to a close friend as there is no family. At this time she is willing to serve in this role as medical proxy decision maker. Ebony Carney [phone] is the healthcare proxy. == goals of care: Proxy is pending further discussion with her . She endorse that after Mr. Eddy's had , he displayed behavior in which he "had given up and wanted to join [employer]." They are considering code status, and also rehab vs hospice. Today 05/10- called Ebony and decided on DNR. She decided to persue rehab. If pt does not tolerate rehabe she state she is open to hospice at a later time.. == confusion- due to renal insufficiency, and maybe underlying etoh. There is underlying dementia as Ebony stated that pt has been having a difficulty time remember names, even hers.. ==palliative care will follow. Of Note, Ebony say she will bring in a DNR tomorrow, she will leave it in the chart, medical team physician please sign if possible. Palliative care will not be available over the weekend. Time Spent Total Floor Time (mins): 25 Face to Face Time (mins): 39 Attestation To help prompt me to consider important information that might be impacting today's encounter and assessment, information from prior notes written by myself or my colleagues may have been "brought forward" into today's note. My signature on this note, however, is an attestation that I personally performed the exam, history, and/or decision-making noted today, and, unless otherwise indicated, the interactions with patient, family, and staff as well as the review of records all occurred today. I also attest that the listed assessment and stated plan reflect my best clinical judgment today based on the combination of historical information, prior notes, and today's exam/ interactions. When time spent is documented, it refers only to time spent today by the signer, or if indicated, combined time spent today by collaborating physician/nurse practitioner. Blaise Cassidy MD May 10, 2017 12:53
--- NOTE | 2017-05-10 15:11 | HHI.HCPN ---
Received call from Lebron with the [facility] police department, victims advocate. She reports she received a call from Ebony (health care proxy) regarding assistance with obtaining information on potential family for Mr. Eddy as it was the [facility] police who assisted getting him to the hospital. Lebron reports the carbon coater machine operator ran Mr. Eddy's information in their search programs ([employer]) and "in her 10-16 years in carbon coater machine operator services she has never come across a person who came up with NO relatives until this individual". Further confirm there is no known family for Mr. Eddy. Health care proxy remains Ebony. Palliative care will continue to follow throughout hospitalization. Jami Armstrong, ASSISTANT DISTRIBUTION MANAGER May 10, 2017 15:11
[2017-05-10] MEDS: cefTRIAXone INJ 1,000 MG in SODIUM CHLORIDE 0.9% INJ 100 ML IV SCH (22:05)
[2017-05-10] MEDS: ENOXAPARIN SODIUM 30 MG/0.3 ML SYRINGE SQ SCH (22:05)
[2017-05-11] VITALS: BP 127/76; PULSE 81; RESP 20; TEMP 99.6; O2SAT 97
[2017-05-11] MEDS: CHLORHEXIDINE GLUCONATE 2 % 1 PACK (2 CLOTHS) TOP SCH (02:16)
[2017-05-11 08:00] VITALS: BP 151/83; PULSE 78; RESP 18; TEMP 98.1; O2SAT 98
--- NOTE | 2017-05-11 08:24 | HHI.PR ---
Subjective Remarks Critical Care Notes: Patient is an elderly chronically ill-appearing male who was brought in by EMS after neighbors noticed that his garbage had been accumulating. EMS found him lying prone on carpet probably been down for 7-8 days, he was found in his own feces and urine. He had extensive skin break down is on disability and was very dehydrated, and he lives alone. CT of the head and C- spine was negative. Lab work showed multiple critical abnormalities BUN 66, Creat 1.46, Calcium 5.6, Na 163, K 2.3, Bicarb 15.6, and trop 0.2. White count was elevated at 14.7 with left shift. Critical care was consulted for admission Deep tissue injury to the face, Anterior abdomen, bilateral knees, and areas of black eschar formation, has Multiorgan failure and prognosis is guarded. 05/05: No acute events overnight. The patient is oriented to name only. Patient noted to be hypernatremic serial sodium being obtained. Swallow study pending in a.m. plan neurology consult, and neuropsychologist consult. 05/06: No acute events overnight. Will status unchanged patient alert to self only still extremely weak. Diet advance this a.m. after evaluation by speech therapy. Cognitive evaluation pending. Hospitalist Notes: 05/07: Seen in Intensive Care unit, patient Lethargic, difficult to arouse, discussed with nurse, continue Neuropsychology following. asked for medical information specialist. 05/08: Seen in his bedroom stable no complaint, regained consciousness, will continue to work with Physical Therapy and continue general diet and added Ensure. 05/09: Stable seen in his bedroom, continue confused, followed by Palliative care. 05/10: Seen in his bedroom discussed with nurse, community marketing manager 05/11: Patient with Phimosis edema of the glans, to remove Anders cath and perform an Urinalysis, patient with no nausea, vomit or diarrhea but continue weakness. Objective Vital Signs Date Time Temp Pulse Resp B/P (MAP) Pulse Ox O2 Delivery O2 Flow Rate FiO2 05/11/17 00:00 99.6 81 20 127/76 (93) 97 05/10/17 20:05 97.0 86 18 113/58 (76) 97 05/10/17 16:00 97.1 87 16 137/78 (97) 99 9/22/17 12:00 95.9 73 16 159/82 (107) 97 05/10/17 09:00 95 21 I/O 05/10/17 05/10/17 05/10/17 05/11/17 05/11/17 05/11/17 07:00 15:00 23:00 07:00 15:00 23:00 Intake Total 480 ml 480 ml 340 ml 950 ml Output Total 600 ml 600 ml 200 ml 250 ml Balance -120 ml -120 ml 140 ml 700 ml Intake Oral 480 ml 480 ml 240 ml 950 ml IV Total 100 ml Output Urine Total 600 ml 600 ml 200 ml 250 ml # Bowel Movements 0 0 0 Result Diagram: 05/09/17 0539 05/09/17 0539 Imaging Last Impressions Maxillofacial CT 05/04/171720 Signed Impressions: Service Date/Time: Thursday, May 04, 2017 18:46 - CONCLUSION: Intact facial bones. Mild, chronic-appearing maxillary sinusitis. Edgar Bae MD Head CT 05/04/171720 Signed Impressions: Service Date/Time: Thursday, May 04, 2017 18:46 - CONCLUSION: No acute intracranial abnormality. Chronic white matter changes. Edgar Bae MD Chest CT 05/04/171720 Signed Impressions: Service Date/Time: Thursday, May 04, 2017 18:54 - CONCLUSION: No evidence of acute thoracic injury. Trace left base atelectasis. Coronary artery calcification. Edgar Bae MD Cervical Spine CT 05/04/171720 Signed Impressions: Service Date/Time: Thursday, May 04, 2017 18:46 - CONCLUSION: Severe multilevel degenerative changes. No fracture or subluxation of the cervical spine. Edgar Bae MD Abdomen/Pelvis CT 05/04/171720 Signed Impressions: Service Date/Time: Thursday, May 04, 2017 18:54 - CONCLUSION: 1. No evidence of acute injury of the abdomen or pelvis. 2. Mild fatty infiltration of the liver. Edgar Bae MD Procedures None Other Results Laboratory Tests Test 05/04/17 17:30 05/04/17 17:50 05/04/17 18:25 05/04/17 21:30 Prothrombin Time 11.0 SEC Prothromb Time International Ratio 1.0 RATIO Activated Partial Thromboplast Time 21.5 SEC Urine Color YELLOW Urine Turbidity HAZY Urine pH 5.5 Urine Specific [place] 1.021 Urine Protein 30 mg/dL Urine Glucose (UA) NEG mg/dL Urine Ketones TRACE mg/dL Urine Occult Blood NEG Urine Nitrite NEG Urine Bilirubin NEG Urine Urobilinogen 2.0 MG/DL Urine Leukocyte Esterase NEG Urine RBC 1 /hpf Urine WBC 2 /hpf Urine Bacteria NONE /hpf Urine Hyaline Casts 3 /lpf Urine Mucus FEW /lpf Microscopic Urinalysis Comment CULT NOT INDICATED Lactic Acid Level 2.0 mmol/L Vitamin B12 Level 820 PG/ML Thyroid Stimulating Hormone 3rd Gen 1.180 uIU/ML Test 05/05/17 02:00 05/05/17 02:08 05/06/17 05:25 05/08/17 06:22 Nasal Screen MRSA (PCR) MRSA NOT DETECTED Blood Urea Nitrogen 87 MG/DL 41 MG/DL 14 MG/DL Creatinine 2.01 MG/DL 1.23 MG/DL 0.96 MG/DL Random Glucose 126 MG/DL 120 MG/DL 205 MG/DL Total Protein 5.7 GM/DL 5.2 GM/DL Albumin 2.2 GM/DL Calcium Level 7.9 MG/DL 7.4 MG/DL 7.6 MG/DL Magnesium Level 2.5 MG/DL 2.0 MG/DL 1.7 MG/DL Alkaline Phosphatase 44 U/L Aspartate Amino Transf (AST/SGOT) 32 U/L Alanine Aminotransferase (ALT/SGPT) 26 U/L Total Bilirubin 0.6 MG/DL Sodium Level 163 MEQ/L 149 MEQ/L 136 MEQ/L Potassium Level 3.5 MEQ/L 4.1 MEQ/L 5.5 MEQ/L Chloride Level 128 MEQ/L 121 MEQ/L 108 MEQ/L Carbon Dioxide Level 21.5 MEQ/L 20.1 MEQ/L 21.9 MEQ/L Troponin I 0.25 NG/ML Red Blood Cell Folate 465 Protein Corrected Calcium 8.5 MG/DL Total Creatine Kinase 229 U/L Phosphorus Level 1.4 MG/DL 1.9 MG/DL Test 05/09/17 05:39 White Blood Count 10.5 TH/MM3 Red Blood Count 3.11 MIL/MM3 Hemoglobin 11.2 GM/DL Hematocrit 33.0 % Mean Corpuscular Volume 106.3 FL Mean Corpuscular Hemoglobin 36.1 PG Mean Corpuscular Hemoglobin Concent 34.0 % Red Cell Distribution Width 13.9 % Platelet Count 230 TH/MM3 Mean Platelet Volume 9.4 FL Neutrophils (%) (Auto) 81.0 % Lymphocytes (%) (Auto) 7.4 % Monocytes (%) (Auto) 9.8 % Eosinophils (%) (Auto) 1.1 % Basophils (%) (Auto) 0.7 % Neutrophils # (Auto) 8.5 TH/MM3 Lymphocytes # (Auto) 0.8 TH/MM3 Monocytes # (Auto) 1.0 TH/MM3 Eosinophils # (Auto) 0.1 TH/MM3 Basophils # (Auto) 0.1 TH/MM3 CBC Comment AUTO DIFF Differential Total Cells Counted 100 Neutrophils % (Manual) 79 % Band Neutrophils % 2 % Lymphocytes % 5 % Monocytes % 9 % Eosinophils % 1 % Basophils % 1 % Neutrophils # (Manual) 8.8 TH/MM3 Myelocytes 3 % Differential Comment FINAL DIFF MANUAL Toxic Granulation 1+ Platelet Estimate NORMAL Platelet Morphology Comment ENLARGED Blood Urea Nitrogen 14 MG/DL Creatinine 0.99 MG/DL Random Glucose 108 MG/DL Calcium Level 8.2 MG/DL Sodium Level 142 MEQ/L Potassium Level 3.6 MEQ/L Chloride Level 111 MEQ/L Carbon Dioxide Level 21.6 MEQ/L Anion Gap 9 MEQ/L Estimat Glomerular Filtration Rate 72 ML/MIN Hemoglobin A1c 5.4 % Objective Remarks GENERAL: alert oriented in person, no acute distress, eating well. SKIN: Extensive skin break down erythema and deep tissue injury on face lower chest, anterior abdomen, bilateral knees and bilateral knees. Multiple areas of black eschar formation. Skin very dry HEAD: Atraumatic. Normocephalic. EYES: Pupils equal and round. No scleral icterus. Positive arcus senilis ENT: No nasal bleeding or discharge. Mucous membranes dry NECK: Trachea midline. No JVD. CARDIOVASCULAR: Tachycardic hypertensive. No murmur appreciated. Sinus rhythm on EKG RESPIRATORY: No accessory muscle use. Clear to auscultation. Breath sounds equal bilaterally. GASTROINTESTINAL: Abdomen soft, non-tender, nondistended. Multiple areas of deep tissue injury MUSCULOSKELETAL: Extensive skin breakdown with deep tissue injury bilateral lower extremities, black eschars noted on bilateral knee and ankle NEUROLOGICAL: alert and no focal deficit. Medications and IVs Current Medications Medications (Trade) Dose Ordered Sig/Monica Route Start Time Stop Time Status Last Admin (NS Flush) 2 ml UNSCH PRN IV FLUSH 05/04/17 20:00 (NS Flush) 2 ml BID IV FLUSH 05/04/17 21:00 05/10/17 22:05 (Tylenol) 650 mg Q6H PRN PO 05/04/17 20:00 (Protonix Inj) 40 mg DAILY IV PUSH 05/05/17 09:00 05/10/17 10:25 (Duoneb Neb) 1 ampule Q2HR NEB PRN INH 05/04/17 20:00 (Lovenox Inj) 30 mg Q24H SQ 05/04/17 20:00 05/10/17 22:05 Miscellaneous Information 1 Q361D XX 05/04/17 20:00 05/04/17 20:00 (Chlorhexidine 2% Cloth) Taper DAILY@04 TOP 05/05/17 04:00 05/01/18 03:59 05/07/17 04:00 (Chlorhexidine 2% Cloth) 3 pack UNSCH PRN TOP 05/04/17 20:00 (Lactulose Liq) 30 ml DAILY PRN PO 05/04/17 20:00 Ceftriaxone Sodium 1000 mg/ Sodium Chloride 100 ml @ 200 mls/hr Q24H IV 05/04/17 20:00 05/10/17 22:05 Multivitamins 10 ml/Thiamine HCl 100 mg/Folic Acid 1 mg/Dextrose/ Sodium Chloride 511.2 ml @ 125 mls/hr DAILY IV 05/04/17 21:00 05/09/17 09:17 (Apresoline Inj) 20 mg Q4H PRN IV PUSH 05/04/17 20:30 A/P Assessment and Plan 1. Acute Metabolic Improving, continue Empiric antibiotics, no signs of infection, multiple skin lesions healing properly. - CT head was negative - Continue multivitamin and folate. Patient is at risk for nutritional deficiencies -Neurology following. -patient regained consciousness today, continue present care and follow added Ensure to General diet. - Followed by Supply Officer Doctor Blaise Cassidy appreciated for your help, Patient does not have Capacity to take her own decisions, ingram a Healthcare proxy, 2. respiratory insufficiency Improved 3. Hypertension controlled. 4. Probable Alcohol abuse continue Thiamine and Vitamin B12, Folate. 5. Equivocal troponin elevation. 6. Hypernatremia resolved. 7. Extensive deep tissue injury to continue Rocephin and clinical product specialist management. 8. Phimosis to remove Anders cath, taken an Urinalysis and asked for Urology specialist consult. PROPH: - Bilateral lower extremity SCDs. Lovenox/Protonix Gastric protection continue. Discharge Planning not yet cleared for discharge. Elbert Gramajo MD May 11, 2017 08:24
[2017-05-11] MEDS: SODIUM CHLORIDE 0.9% FLUSH 10 ML FLUSH IV FLUSH SCH ×2 (09:00→20:03)
[2017-05-11 09:54] VITALS: O2SAT 97
[2017-05-11] MEDS: MULTIVITAMIN INJ 10 ML, THIAMINE INJ 100 MG, FOLIC ACID INJ 1 MG in DEXT 5%-NACL 0.9% 5... IV SCH (10:36)
[2017-05-11] MEDS: PANTOPRAZOLE SODIUM 40 MG VIAL IV PUSH SCH (10:37)
[2017-05-11 12:00] VITALS: BP 117/65; PULSE 80; RESP 18; TEMP 98.6; O2SAT 97
[2017-05-11 16:00] VITALS: BP 143/78; PULSE 66; RESP 18; TEMP 97.2; O2SAT 96
[2017-05-11 18:11] LABS: BACTERIA, URINE OCC /hpf; BLOOD, URINE SMALL (NEG); GLUCOSE,URINE NEG (NEG); KETONE, URINE NEG (NEG); MUCUS URINE FEW /lpf (OCC); NITRITE,URINE NEG (NEG); PH, URINE 5.5 (5.0-8.5); SQUAMOUS EPITHELIAL CELL URINE <1 /hpf (0-5); URINE COLOR YELLOW (YELLW/STRAW)
[2017-05-11 18:15] LABS: COMMENT (UR) CATH-CULTURE IND; CULTURE IF INDICATED CATH CULTURE IND
[2017-05-11] MEDS: ENOXAPARIN SODIUM 30 MG/0.3 ML SYRINGE SQ SCH (20:02)
[2017-05-11] MEDS: cefTRIAXone INJ 1,000 MG in SODIUM CHLORIDE 0.9% INJ 100 ML IV SCH (20:02)
[2017-05-11 21:05] VITALS: BP 158/70; PULSE 86; RESP 20; TEMP 99.3; O2SAT 98
[2017-05-12] VITALS (7 sets, daily range): BP systolic 101–146; BP diastolic 56–84; PULSE 74–94; RESP 18–20; TEMP 96.2–99.5; O2SAT 94–98
[2017-05-12] MEDS: CHLORHEXIDINE GLUCONATE 2 % 1 PACK (2 CLOTHS) TOP SCH (03:36)
[2017-05-12 04:44] LABS: ANION GAP 10 MEQ/L (5-15); AST (GOT) 30 U/L (15-37); BASOPHIL # 0.1 TH/MM3 (0-0.2); BICARBONATE 24.3 MEQ/L (21.0-32.0); BLOOD UREA NITROGEN 14 MG/DL (7-18); CHLORIDE 104 MEQ/L (98-107); EOSINOPHIL % 0.3 % (0.0-4.0); GLOMERULAR FILTRATION RATE 91 ML/MIN (>89); HEMATOCRIT 27.4 % (39.0-51.0); HEMO FLAGS DIFF FINAL; LYMPH % 4.5 % (9.0-44.0); LYMPHOCYTE # 0.5 TH/MM3 (1.0-4.8); MAGNESIUM 1.8 MG/DL (1.5-2.5); MEAN CELL VOLUME 105.3 FL (80.0-100.0); MEAN CORPUSCULAR HEMOGLOBIN 35.9 PG (27.0-34.0); MEAN CORPUSCULAR HGB CONC 34.1 % (32.0-36.0); MONO % 9.3 % (0.0-8.0); NEUT % 84.9 % (16.0-70.0); PLATELET COUNT 279 TH/MM3 (150-450); POTASSIUM 3.5 MEQ/L (3.5-5.1); RED CELL DISTRIBUTION WIDTH 13.6 % (11.6-17.2); SODIUM (NA) 138 MEQ/L (136-145); WHITE BLOOD COUNT 11.8 TH/MM3 (4.0-11.0)
[2017-05-12 04:48] LABS: ALKALINE PHOSPHATASE 53 U/L (45-117); ALT (GPT) 31 U/L (12-78); TOTAL BILIRUBIN ADULT 0.4 MG/DL (0.2-1.0)
[2017-05-12] MEDS: SODIUM CHLORIDE 0.9% FLUSH 10 ML FLUSH IV FLUSH SCH ×2 (08:27→19:45)
[2017-05-12] MEDS: PANTOPRAZOLE SODIUM 40 MG VIAL IV PUSH SCH (08:27)
--- NOTE | 2017-05-12 10:15 | HHI.PR ---
Subjective Remarks Critical Care Notes: Patient is an elderly chronically ill-appearing male who was brought in by EMS after neighbors noticed that his garbage had been accumulating. EMS found him lying prone on carpet probably been down for 7-8 days, he was found in his own feces and urine. He had extensive skin break down is on disability and was very dehydrated, and he lives alone. CT of the head and C- spine was negative. Lab work showed multiple critical abnormalities BUN 66, Creat 1.46, Calcium 5.6, Na 163, K 2.3, Bicarb 15.6, and trop 0.2. White count was elevated at 14.7 with left shift. Critical care was consulted for admission Deep tissue injury to the face, Anterior abdomen, bilateral knees, and areas of black eschar formation, has Multiorgan failure and prognosis is guarded. 05/05: No acute events overnight. The patient is oriented to name only. Patient noted to be hypernatremic serial sodium being obtained. Swallow study pending in a.m. plan neurology consult, and neuropsychologist consult. 05/06: No acute events overnight. Will status unchanged patient alert to self only still extremely weak. Diet advance this a.m. after evaluation by speech therapy. Cognitive evaluation pending. Hospitalist Notes: 05/07: Seen in Intensive Care unit, patient Lethargic, difficult to arouse, discussed with nurse, continue Neuropsychology following. asked for billing specialist. 05/08: Seen in his bedroom stable no complaint, regained consciousness, will continue to work with Physical Therapy and continue general diet and added Ensure. 05/09: Stable seen in his bedroom, continue confused, followed by Palliative care. 05/10: Seen in his bedroom discussed with nurse, authorization manager 05/11: Patient with Phimosis edema of the glans, to remove Anders cath and perform an Urinalysis, patient with no nausea, vomit or diarrhea but continue weakness. 05/12: Stable in his bedroom, complaint of Weakness, seen by Urology specialist reduced Phimosis, Urinalysis positive for Leukocyte Esterase awaiting Health Proxy for decisions for discharge. continued Ceftriaxone and following Urine culture and sensitivity. Objective Vital Signs Date Time Temp Pulse Resp B/P (MAP) Pulse Ox O2 Delivery O2 Flow Rate FiO2 05/12/17 08:00 96.2 78 19 120/62 (81) 96 05/12/17 04:10 98.2 94 20 120/72 (88) 94 05/12/17 01:35 98.0 94 20 146/84 (104) 98 05/11/17 21:05 99.3 86 20 158/70 (99) 98 05/11/17 16:00 97.2 66 18 143/78 (99) 96 05/11/17 12:00 98.6 80 18 117/65 (82) 97 I/O 05/11/17 05/11/17 05/11/17 05/12/17 05/12/17 05/12/17 07:00 15:00 23:00 07:00 15:00 23:00 Intake Total 950 ml 480 ml 220 ml 60 ml Output Total 250 ml 450 ml Balance 700 ml 30 ml 220 ml 60 ml Intake Oral 950 ml 480 ml 120 ml 60 ml IV Total 100 ml Output Urine Total 250 ml 450 ml # Voids 1 4 # Bowel Movements 0 0 0 Result Diagram: 05/12/1730605/12/17306 Imaging Last Impressions Maxillofacial CT 05/04/171720 Signed Impressions: Service Date/Time: Thursday, May 04, 2017 18:46 - CONCLUSION: Intact facial bones. Mild, chronic-appearing maxillary sinusitis. Edgar Bae MD Head CT 05/04/171720 Signed Impressions: Service Date/Time: Thursday, May 04, 2017 18:46 - CONCLUSION: No acute intracranial abnormality. Chronic white matter changes. Edgar Bae MD Chest CT 05/04/171720 Signed Impressions: Service Date/Time: Thursday, May 04, 2017 18:54 - CONCLUSION: No evidence of acute thoracic injury. Trace left base atelectasis. Coronary artery calcification. Edgar Bae MD Cervical Spine CT 05/04/171720 Signed Impressions: Service Date/Time: Thursday, May 04, 2017 18:46 - CONCLUSION: Severe multilevel degenerative changes. No fracture or subluxation of the cervical spine. Edgar Bae MD Abdomen/Pelvis CT 05/04/171720 Signed Impressions: Service Date/Time: Thursday, May 04, 2017 18:54 - CONCLUSION: 1. No evidence of acute injury of the abdomen or pelvis. 2. Mild fatty infiltration of the liver. Edgar Bae MD Procedures None Other Results Laboratory Tests Test 05/04/17 17:30 05/04/17 17:50 05/04/17 18:25 05/04/17 21:30 Prothrombin Time 11.0 SEC Prothromb Time International Ratio 1.0 RATIO Activated Partial Thromboplast Time 21.5 SEC Urine Hyaline Casts 3 /lpf Lactic Acid Level 2.0 mmol/L Vitamin B12 Level 820 PG/ML Thyroid Stimulating Hormone 3rd Gen 1.180 uIU/ML Test 05/05/17 02:00 05/05/17 02:08 05/06/17 05:25 05/08/17 06:22 Nasal Screen MRSA (PCR) MRSA NOT DETECTED Troponin I 0.25 NG/ML Red Blood Cell Folate 465 Protein Corrected Calcium 8.5 MG/DL Total Creatine Kinase 229 U/L Blood Urea Nitrogen 14 MG/DL Creatinine 0.96 MG/DL Random Glucose 205 MG/DL Calcium Level 7.6 MG/DL Phosphorus Level 1.9 MG/DL Magnesium Level 1.7 MG/DL Sodium Level 136 MEQ/L Potassium Level 5.5 MEQ/L Chloride Level 108 MEQ/L Carbon Dioxide Level 21.9 MEQ/L Test 05/09/17 05:39 05/11/17 17:45 05/12/17 03:07 Differential Total Cells Counted 100 Neutrophils % (Manual) 79 % Band Neutrophils % 2 % Lymphocytes % 5 % Monocytes % 9 % Eosinophils % 1 % Basophils % 1 % Neutrophils # (Manual) 8.8 TH/MM3 Myelocytes 3 % Toxic Granulation 1+ Platelet Estimate NORMAL Platelet Morphology Comment ENLARGED Hemoglobin A1c 5.4 % Urine Color YELLOW Urine Turbidity CLEAR Urine pH 5.5 Urine Specific [place] 1.007 Urine Protein NEG mg/dL Urine Glucose (UA) NEG mg/dL Urine Ketones NEG mg/dL Urine Occult Blood SMALL Urine Nitrite NEG Urine Bilirubin NEG Urine Urobilinogen LESS THAN 2.0 MG/DL Urine Leukocyte Esterase MOD Urine RBC 7 /hpf Urine WBC 9 /hpf Urine Squamous Epithelial Cells <1 /hpf Urine Bacteria OCC /hpf Urine Mucus FEW /lpf Microscopic Urinalysis Comment CATH-CULTURE IND White Blood Count 11.8 TH/MM3 Red Blood Count 2.60 MIL/MM3 Hemoglobin 9.3 GM/DL Hematocrit 27.4 % Mean Corpuscular Volume 105.3 FL Mean Corpuscular Hemoglobin 35.9 PG Mean Corpuscular Hemoglobin Concent 34.1 % Red Cell Distribution Width 13.6 % Platelet Count 279 TH/MM3 Mean Platelet Volume 9.3 FL Neutrophils (%) (Auto) 84.9 % Lymphocytes (%) (Auto) 4.5 % Monocytes (%) (Auto) 9.3 % Eosinophils (%) (Auto) 0.3 % Basophils (%) (Auto) 1.0 % Neutrophils # (Auto) 10.0 TH/MM3 Lymphocytes # (Auto) 0.5 TH/MM3 Monocytes # (Auto) 1.1 TH/MM3 Eosinophils # (Auto) 0.0 TH/MM3 Basophils # (Auto) 0.1 TH/MM3 CBC Comment DIFF FINAL Differential Comment Blood Urea Nitrogen 14 MG/DL Creatinine 0.81 MG/DL Random Glucose 103 MG/DL Total Protein 5.4 GM/DL Albumin 1.9 GM/DL Calcium Level 7.8 MG/DL Magnesium Level 1.8 MG/DL Alkaline Phosphatase 53 U/L Aspartate Amino Transf (AST/SGOT) 30 U/L Alanine Aminotransferase (ALT/SGPT) 31 U/L Total Bilirubin 0.4 MG/DL Sodium Level 138 MEQ/L Potassium Level 3.5 MEQ/L Chloride Level 104 MEQ/L Carbon Dioxide Level 24.3 MEQ/L Anion Gap 10 MEQ/L Estimat Glomerular Filtration Rate 91 ML/MIN Objective Remarks GENERAL: alert oriented in person, no acute distress, eating well. SKIN: Extensive skin break down erythema and deep tissue injury on face lower chest, anterior abdomen, bilateral knees and bilateral knees. Multiple areas of black eschar formation. Skin very dry HEAD: Atraumatic. Normocephalic. EYES: Pupils equal and round. No scleral icterus. Positive arcus senilis ENT: No nasal bleeding or discharge. Mucous membranes dry NECK: Trachea midline. No JVD. CARDIOVASCULAR: Tachycardic hypertensive. No murmur appreciated. Sinus rhythm on EKG RESPIRATORY: No accessory muscle use. Clear to auscultation. Breath sounds equal bilaterally. GASTROINTESTINAL: Abdomen soft, non-tender, nondistended. Multiple areas of deep tissue injury MUSCULOSKELETAL: Extensive skin breakdown with deep tissue injury bilateral lower extremities, black eschars noted on bilateral knee and ankle NEUROLOGICAL: alert and no focal deficit. Medications and IVs Current Medications Medications (Trade) Dose Ordered Sig/Monica Route Start Time Stop Time Status Last Admin (NS Flush) 2 ml UNSCH PRN IV FLUSH 05/04/17 20:00 (NS Flush) 2 ml BID IV FLUSH 05/04/17 21:00 05/12/17 08:27 (Tylenol) 650 mg Q6H PRN PO 05/04/17 20:00 (Protonix Inj) 40 mg DAILY IV PUSH 05/05/17 09:00 05/12/17 08:27 (Duoneb Neb) 1 ampule Q2HR NEB PRN INH 05/04/17 20:00 (Lovenox Inj) 30 mg Q24H SQ 05/04/17 20:00 05/11/17 20:02 Miscellaneous Information 1 Q361D XX 05/04/17 20:00 05/04/17 20:00 (Chlorhexidine 2% Cloth) Taper DAILY@04 TOP 05/05/17 04:00 05/01/18 03:59 05/07/17 04:00 (Chlorhexidine 2% Cloth) 3 pack UNSCH PRN TOP 05/04/17 20:00 (Lactulose Liq) 30 ml DAILY PRN PO 05/04/17 20:00 Ceftriaxone Sodium 1000 mg/ Sodium Chloride 100 ml @ 200 mls/hr Q24H IV 05/04/17 20:00 05/11/17 20:02 Multivitamins 10 ml/Thiamine HCl 100 mg/Folic Acid 1 mg/Dextrose/ Sodium Chloride 511.2 ml @ 125 mls/hr DAILY IV 05/04/17 21:00 05/11/17 10:36 (Apresoline Inj) 20 mg Q4H PRN IV PUSH 05/04/17 20:30 Ceftriaxone Sodium 1000 mg/ Sodium Chloride 100 ml @ 200 mls/hr Q24H IV 05/12/17 09:00 UNV A/P Assessment and Plan 1. Acute Metabolic Improving, continue Empiric antibiotics, no signs of infection, multiple skin lesions healing properly. - CT head was negative - Continue multivitamin and folate. Patient is at risk for nutritional deficiencies -Neurology following. - Followed by Climatology Teacher Doctor Blaise Cassidy appreciated for your help, Patient does not have Capacity to take her own decisions, has a Healthcare proxy but did not take yet the 2. respiratory insufficiency Improved 3. Hypertension controlled. 4. Probable Alcohol abuse continue Thiamine and Vitamin B12, Folate. 5. Equivocal troponin elevation. 6. Hypernatremia resolved. 7. Extensive deep tissue injury to continue Rocephin and legal service specialist management. 8. Phimosis to removed Anders cath yesterday, UA positive for UTI, continue ceftriaxone and follow Urine culture and sensitivities. Urology consult performed for Phimosis that was reduced. 9. electrolyte derangement replaced. PROPH: - Bilateral lower extremity SCDs. Lovenox/Protonix Gastric protection continue. Discharge Planning awaiting final by Palliative care and Health proxy for discharge. Elbert Gramajo MD May 12, 2017 10:15
[2017-05-12] MEDS: MULTIVITAMIN INJ 10 ML, THIAMINE INJ 100 MG, FOLIC ACID INJ 1 MG in DEXT 5%-NACL 0.9% 5... IV SCH (10:19)
[2017-05-12] MEDS ORDERED: POTASSIUM CHLORIDE 20 MEQ CONTROLLED RELEASE TAB PO ONE (10:30)
--- NOTE | 2017-05-12 10:38 | MB ---
cc: NADER GLASGOW MD DATE OF CONSULTATION: 05/11/2017 REASON FOR CONSULTATION Paraphimosis. HISTORY OF PRESENT ILLNESS The patient is a 87-year-old male who was brought by EMS on 05/04/2017 after neighbors had noticed that his garbage had been accumulating at his house. He was found lying prone on the carpet and down for approximately 7 to 8 days, found in his own feces and urine. He was brought to the ER for further evaluation where he was found to have acute renal failure, hypernatremic, elevated white count. At the time he had a Anders catheter placed. He had been slowly improving with his creatinine going back down to normal, however, earlier today he was found to have significant penile swelling. Urology was consulted for his penile swelling. The patient is a poor historian and most of the history is obtained from his records. However, he does deny any pain in his scrotum, any fevers, chills, abdominal pain or flank pain at this time. He denies hematuria, dysuria, or urinary incontinence. Denies h/o kidney stones or UTIs. PAST MEDICAL HISTORY Dementia. PAST SURGICAL HISTORY Unable to obtain. FAMILY HISTORY Unable to obtain. SOCIAL HISTORY Unable to obtain. MEDICATIONS Reported medications include: 1. Hydralazine. 2. Lovenox. 3. Protonix. 4. Lactulose. 5. Rocephin. ALLERGIES: NKDA REVIEW OF SYSTEMS Unable to obtain. PHYSICAL EXAMINATION VITAL SIGNS: Temperature 97.2, pulse 66, respiratory rate 18, BP 143/78, 96% on room air. GENERAL: He is alert but confused, not oriented to time, place or person. HEAD: Head is normocephalic, atraumatic. EYES: No scleral icterus. Extraocular muscles intact. NECK: Neck is supple. Trachea is midline. No JVD. SKIN: No ulcers or rashes. [place] and moist. LUNGS: Clear to auscultation bilaterally. No wheezes, rales, rhonchi. HEART: Regular rhythm. No murmurs, gallops, rubs. ABDOMEN: Soft, nontender, nondistended. Positive bowel sounds. GENITOURINARY: His penis is edematous and swollen and tender to touch with minimal skin breakdown, consistent with a paraphimosis. Testes nontender and no mass is palpable. RECTAL: Exam not indicated at this time. EXTREMITIES: Nontender. No clubbing, cyanosis or edema. PSYCHE: Agitated. NEUROLOGIC: Cranial nerves II-XII intact. Strength 4/5 in all four extremities. LABORATORY DATA White count of 10.5, hemoglobin 11.2, hematocrit 33.0, platelet count 230, sodium 142, potassium 3.6, chloride 111, bicarb 21.6, creatinine 0.99, BUN 14, glucose 108. His urine showed moderate leukocyte esterase. Culture pending. IMAGING STUDIES CT abdomen and pelvis with IV contrast images are reviewed. Kidneys appear normal, no evidence of any hydronephrosis or stones with a catheter in his bladder. ASSESSMENT The patient is an 87-year-old male admitted after being found down in his house for 7 to 8 days with a paraphimosis. PLAN 1. The paraphimosis was reduced successfully at the bedside. The patient tolerated it well. 2. Discussed with the nursing staff about making sure his foreskin remains in proper position after catheter care. Will defer Anders management to the primary team. He can follow up as needed. Thank you for this consult. Please call with any questions. Nader Glasgow MD EMF/ENRIQUE /8:50 AM /10:20 AM [id number]
[2017-05-12] MEDS ORDERED: cefTRIAXone INJ 1,000 MG in SODIUM CHLORIDE 0.9% INJ 100 ML IV SCH (11:00)
[2017-05-12] MEDS: MAGNESIUM OXIDE 400 MG TAB PO SCH (11:59)
[2017-05-12] MEDS: ENOXAPARIN SODIUM 30 MG/0.3 ML SYRINGE SQ SCH (19:44)
[2017-05-13 01:00] VITALS: BP 145/75; PULSE 75; RESP 20; TEMP 97.7; O2SAT 97
[2017-05-13] MEDS: CHLORHEXIDINE GLUCONATE 2 % 1 PACK (2 CLOTHS) TOP SCH (01:53)
[2017-05-13 04:00] VITALS: BP 144/73; PULSE 85; RESP 18; TEMP 98.6; O2SAT 95
[2017-05-13 08:00] VITALS: BP 137/77; PULSE 69; RESP 18; TEMP 99.2; O2SAT 93
[2017-05-13] MEDS: SODIUM CHLORIDE 0.9% FLUSH 10 ML FLUSH IV FLUSH SCH ×2 (09:03→20:03)
[2017-05-13] MEDS: PANTOPRAZOLE SODIUM 40 MG VIAL IV PUSH SCH (09:03)
--- NOTE | 2017-05-13 10:06 | HHI.PR ---
Subjective Remarks Follow for altered mental status Patient able to give me his name. When I asked the city we were in he told me it was [place]. When I asked patient if he knew what happened he stated no. When I told him that he was found on the ground for many days he stated for how many days. When asked him if any family around he stated no there is no family. Patient had no complaints. He stated that he was walking prior from this hospitalization. She remains afebrile. Dealt with patient's nurse at the bedside during the interview and examination. Objective Vitals Vital Signs Date Time Temp Pulse Resp B/P (MAP) Pulse Ox O2 Delivery O2 Flow Rate FiO2 05/13/17 09:14 Room Air 05/13/17 04:00 98.6 85 18 144/73 (96) 95 05/13/17 01:00 97.7 75 20 145/75 (98) 97 05/12/17 19:35 99.5 81 18 108/56 (73) 96 05/12/17 16:00 98.5 75 18 101/66 (78) 98 05/12/17 12:00 97.5 74 18 124/69 (87) 98 I/O 05/12/17 05/12/17 05/12/17 05/13/17 05/13/17 05/13/17 07:00 15:00 23:00 07:00 15:00 23:00 Intake Total 60 ml 960 ml 600 ml 480 ml Balance 60 ml 960 ml 600 ml 480 ml Intake Oral 60 ml 960 ml 600 ml 480 ml # Voids 4 4 3 4 # Bowel Movements 0 0 0 0 Result Diagram: 05/12/17 03005/12/17 030 Imaging GENERAL: in NAD SKIN: Eschar on left knee but no erythema noticed. No discharge noted. Patient had some diffused macular pinkish rash on thorax but no discharge or erythema from areas where he was positioned. CARDIOVASCULAR: Regular rate and rhythm without murmurs, gallops, or rubs. RESPIRATORY: Breath sounds equal bilaterally. No accessory muscle use. GASTROINTESTINAL: Abdomen soft, non-tender, nondistended. NEURO: Moving all extremities freely. patient unable to answer questions but not in detail. Medications and IVs Current Medications Sodium Chloride 1,000 ml @ 999 mls/hr BOLUS ONCE IV Last administered on 05/04 20:00; Start 05/04/17 at 18:15; Stop 05/04/17 at 19:15; Status DC Sodium Chloride 1,000 ml @ 999 mls/hr BOLUS ONCE IV Last administered on 05/04 18:32; Start 05/04/17 at 18:30; Stop 05/04/17 at 19:30; Status DC Calcium Gluconate 1 gm/Dextrose 110 ml @ 110 mls/hr ONCE ONCE IV Last administered on 05/04/17 21:45; Start 05/04/17 at 18:30; Stop 05/04/17 at 19:29 ; Status DC Potassium Chloride 100 ml @ 50 mls/hr STAT STAT IV Last administered on 20:01; Start 05/04/17 at 18:32; Stop 05/04/17 at 20:31; Status DC Potassium Bicarb/ Potassium Chloride (K-Lyte Cl Eff) 50 meq STAT ONCE PO ; Start 05/04/17 at 18:45; Stop 05/04/17 at 18:46; Status DC Iohexol (Omnipaque 350 Inj) 80 ml STK-MED ONCE IV PUSH Last administered on 19:09; Start 05/04/17 at 19:09; Stop 05/04/17 at 19:10; Status DC Sodium Chloride 1,000 ml @ 2,000 mls/hr Q30M ONCE IV Last administered on 05/04 21:45; Start 05/04/17 at 20:00; Stop 05/04/17 at 20:29; Status DC Potassium Chloride 40 meq/ Sodium Chloride 1,020 ml @ 150 mls/hr Q6H48M IV Last administered on 05/04/17 22:05; Start 05/04/17 at 21:00; Stop 05/05/17 at 04:04; Status DC Sodium Chloride (NS Flush) 2 ml UNSCH PRN IV FLUSH FLUSH AFTER USING IV ACCESS ; Start 05/04/17 at 20:00 Sodium Chloride (NS Flush) 2 ml BID IV FLUSH Last administered on 05/13/17 09: 03; Start 05/04/17 at 21:00 Acetaminophen (Tylenol) 650 mg Q6H PRN PO PAIN 1-10 AND/OR FEVER >101F; Start 05/04/17 at 20:00 Pantoprazole Sodium (Protonix Inj) 40 mg DAILY IV PUSH Last administered on 09:03; Start 05/05/17 at 09:00 Albuterol/ Ipratropium (Duoneb Neb) 1 ampule Q2HR NEB PRN INH WHEEZING; Start 05/04/17 at 20:00 Enoxaparin Sodium (Lovenox Inj) 30 mg Q24H SQ Last administered on 05/12/17 19 :44; Start 05/04/17 at 20:00 Miscellaneous Information 1 [id number] XX Last administered on 05/04/17 20:00; Start 05/04/17 at 20:00 Chlorhexidine Gluconate (Chlorhexidine 2% Cloth) Taper DAILY@04 TOP Last administered on 05/07/17 04:00; Start 05/05/17 at 04:00; Stop 05/01/18 at 03:59 Chlorhexidine Gluconate (Chlorhexidine 2% Cloth) 3 pack UNSCH PRN TOP HYGIENIC CARE; Start 05/04/17 at 20:00 Lactulose (Lactulose Liq) 30 ml DAILY PRN PO SEVERE CONSITIPATION Last administered on 05/12/17 19:45; Start 05/04/17 at 20:00 Ceftriaxone Sodium 1000 mg/ Sodium Chloride 100 ml @ 200 mls/hr Q24H IV Last administered on 05/11/17 20:02; Start 05/04/17 at 20:00; Stop 05/12/17 at 09:55 ; Status DC Multivitamins 10 ml/Thiamine HCl 100 mg/Folic Acid 1 mg/Dextrose/ Sodium Chloride 511.2 ml @ 125 mls/hr DAILY IV Last administered on 05/12/17 10:19; Start 05/04/17 at 21:00; Stop 05/13/17 at 10:04; Status DC Hydralazine HCl (Apresoline Inj) 20 mg Q4H PRN IV PUSH SYS BP GREATER THAN 170 MMHG; Start 05/04/17 at 20:30 Sodium Chloride 1,000 ml @ 999 mls/hr BOLUS ONCE IV Last administered on 05/04 23:47; Start 05/04/17 at 23:30; Stop 05/05/17 at 00:30; Status DC Potassium Chloride 40 meq/ Dextrose 1,020 ml @ 75 mls/hr [id number] IV Last administered on 05/07/17 19:59; Start 05/05/17 at 04:15; Stop 05/08/17 at 08:28 ; Status DC Sodium Chloride 1,000 ml @ 75 mls/hr [id number] IV Last administered on 12:38; Start 05/08/17 at 09:00; Stop 05/08/17 at 13:15; Status DC Sodium Phosphate 21 mmol/Sodium Chloride 157 ml @ 38.75 mls/ hr ONCE ONCE IV Last administered on 05/08/17 10:06; Start 05/08/17 at 08:30; Stop 05/08/17 at 12:33; Status DC Ceftriaxone Sodium 1000 mg/ Sodium Chloride 100 ml @ 200 mls/hr Q24H IV Last administered on 05/12/17 10:19; Start 05/12/17 at 11:00; Stop 05/13/17 at 10:04 ; Status DC Potassium Chloride (KCl) 40 meq ONCE ONCE PO Last administered on 05/12/17 11 :57; Start 05/12/17 at 10:30; Stop 05/12/17 at 10:31; Status DC Magnesium Oxide (Mag-Ox) 400 mg DAILY@1100 PO Last administered on 05/12/17 11 :59; Start 05/12/17 at 11:00 A/P Problem List: (1) Severe hypernatremia (2) Severe hypokalemia (3) Severe dehydration ICD Code: E86.0 - Dehydration (4) Acute kidney failure ICD Code: N17.9 - Acute kidney failure, unspecified (5) Hypocalcemia ICD Code: E83.51 - Hypocalcemia (6) Hypomagnesemia ICD Code: E83.42 - Hypomagnesemia (7) Probable sepsis ICD Code: A41.9 - Sepsis, unspecified organism (8) Altered mental status ICD Code: R41.82 - Altered mental status, unspecified (9) Leukocytosis ICD Code: D72.829 - Elevated white blood cell count, unspecified (10) Metabolic acidosis ICD Code: E87.2 - Acidosis Assessment and Plan Acute metabolic encephalopathy Acute Metabolic Improving, continue Empiric antibiotics, no signs of infection, multiple skin lesions healing properly. - CT head was negative. Labs reviewed. Patient treated empirically with antibiotics but there are no signs of infection. -Neuropsychologist was following patient suggested that most likely secondary to alcoholism and dementia. -No urine drug screen was done on admission. -Patient seems back to his baseline. Most likely has a component of dementia. -Will stop his IV antibiotics there is no signs of infection and workup has been negative. Respiratory insufficiency -Secondary to altered mental status. Resolved. Hypertension -controlled. Continue with home medication. Questionable Alcohol abuse -Patient has no prior visit to this hospital. Tox screen was not done during hospital admission. -He was treated empirically with Thiamine and Vitamin B12, Folate. Equivocal troponin elevation. -Asymptomatic. Most likely secondary to severe dehydration. -EF 45%. -Since patient is a poor historian with mildly reduced EF and acute renal failure resolved. Will get a nuclear stress test. Congestive heart failure systolic dysfunction EF 45% -Asymptomatic. -Renal failure resolved. Will start lisinopril. Acute renal failure -Secondary to severe dehydration. Resolved. Hypernatremia -Secondary to severe dehydration. Resolved. Wounds -Secondary to prolonged sedation. Infection. DC IV antibiotics. Healing well. paraphimosis -Reduced by urologist. Per urologist can follow-up when necessary. Hypokalemia/hypomagnesemia -Secondary to severe dehydration. Resolved. Discharge Planning Will need to monitor patient off antibiotics and do a nuclear stress test. If negative patient is clear for discharge to SNF. Palliative care is corresponding with healthcare proxy. Has no family members. Problem Qualifiers (1) Acute kidney failure: Qualified Codes: N17.9 - Acute kidney failure, unspecified (2) Altered mental status: Qualified Codes: R41.82 - Altered mental status, unspecified (3) Leukocytosis: Qualified Codes: D72.829 - Elevated white blood cell count, unspecified Atiya Arambula MD May 13, 2017 10:06
--- NOTE | 2017-05-13 11:18 | HHI.PR ---
Neuropsych Behavior Behavior: Intact: Cooperative w/ Treatment, Impulsive/Agitated Cognitive Cognitive: Severe: Cognitive, Attention/Concentration, Confused/Orientation, Insight/Awareness, Judgement/Problem-Solving, Memory Psychosocial Psychosocial: Severe: Psychosocial, Family/Other Adjustment, Realistic Expectation, Unable to Asses: Self-Esteem/Confidence Progress Notes/Response to Tx Contents of Sessions: Adjustment Time with Patient: 15 minutes Premorbid psychological status Premorbid Cognitive, Emotional and Behavioral Status: Stable. 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 The patient has no known psychiatric difficulties, as described above. Substance abuse history includes alcohol dependence. Behavioral Reactions of Patient and Family/Support System: Unable to Assess. The patient has no family. Emotional/Behavioral Status of Patient and Family/Support System: Unable to Assess. Pertinent issues, if appropriate to this patients clinical care, are described in detail above. Maximizing acute care outcome It is recommended that the patient be monitored for emergent behavioral impulsivity as the medical condition evolves. This patients neuropathological challenges may limit their rehabilitation potential going forward, and these challenges will require specialized therapeutic skills to maximize outcome. Anticipated Problems Ongoing areas of concern will include behavioral impulsivity, lack of insight and judgment, which is expected to improve with time and treatment. Presently , the patient is following only one-step commands. Treatment Plan This clinician will continue to follow with you throughout the course of this patients rehabilitation treatment, and I will be available to meet with the patients family/support system to facilitate their understanding and the ongoing care of their family member. The goals of neuropsychological intervention shall be both educational and supportive to the family/support system as is deemed clinically appropriate. Impression This unknown aged (possibly 80s) man was found unconscious lying in his home for over seven days, in a dehydrated and malnourished state, and continues to show persistent neurocognitive deficits. 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 His , and he has been living alone; he has no children. His medical history is unknown. There is a strong suspicion of alcohol dependence and underlying unresolved clinical depression. Diagnostically, I would infer a delirium due to multiple causes superimposed on an underlying alcohol-related dementia, and confounded by clinical depression. 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 The patient remains oriented only to person, not place, time or circumstance. Impaired attention and carryover of new information. Language skills remain intact. Impaired insight, awareness and judgment. Thus his neurocognitive impairments persist in spite of improved metabolic profiles, suggesting that the more underlying neurocognitive disorder is now becoming the primary condition. He remains cognitively incapable of making decisions of a legal, financial and medical nature in my clinical opinion. He will need placement on discharge. Prince Espitia PhD May 13, 2017 11:18 am
[2017-05-13 12:00] VITALS: BP 125/68; PULSE 81; RESP 18; TEMP 98.9; O2SAT 93
[2017-05-13] MEDS: MAGNESIUM OXIDE 400 MG TAB PO SCH (12:01)
[2017-05-13] MEDS: LISINOPRIL 5 MG TAB PO SCH (12:02)
[2017-05-13 16:00] VITALS: BP 123/69; PULSE 78; RESP 18; TEMP 97.3; O2SAT 97
[2017-05-13] MEDS: ENOXAPARIN SODIUM 30 MG/0.3 ML SYRINGE SQ SCH (20:03)
[2017-05-13 20:06] VITALS: BP 116/63; PULSE 80; RESP 17; TEMP 98.2; O2SAT 95
[2017-05-13] MEDS ORDERED: diphenhydrAMINE HCL 25 MG CAP PO ONE (21:30)
[2017-05-14] VITALS: BP 144/76; PULSE 80; RESP 16; TEMP 98.9; O2SAT 98
[2017-05-14 04:00] VITALS: BP 139/68; PULSE 79; RESP 18; TEMP 98; O2SAT 98
[2017-05-14] MEDS: CHLORHEXIDINE GLUCONATE 2 % 1 PACK (2 CLOTHS) TOP SCH (04:00)
[2017-05-14 06:55] LABS: HEMATOCRIT 28.1 % (39.0-51.0); MEAN CELL VOLUME 105.2 FL (80.0-100.0); MEAN CORPUSCULAR HEMOGLOBIN 35.9 PG (27.0-34.0); MEAN CORPUSCULAR HGB CONC 34.1 % (32.0-36.0); PLATELET COUNT 349 TH/MM3 (150-450); RED BLOOD COUNT 2.67 MIL/MM3 (4.50-5.90); RED CELL DISTRIBUTION WIDTH 13.6 % (11.6-17.2); REVIEW FLAG FINAL; WHITE BLOOD COUNT 10.7 TH/MM3 (4.0-11.0)
[2017-05-14 07:22] LABS: POTASSIUM 3.4 MEQ/L (3.5-5.1)
[2017-05-14 08:00] VITALS: BP 154/74; PULSE 80; RESP 18; TEMP 98.2; O2SAT 97
[2017-05-14] MEDS: SODIUM CHLORIDE 0.9% FLUSH 10 ML FLUSH IV FLUSH SCH ×2 (09:20→20:12)
[2017-05-14] MEDS: PANTOPRAZOLE SODIUM 40 MG VIAL IV PUSH SCH (09:20)
[2017-05-14] MEDS: LISINOPRIL 5 MG TAB PO SCH (09:20)
--- NOTE | 2017-05-14 10:28 | HHI.PR ---
Subjective Remarks Follow for documented status Patient has no complaints. When I asked patient remembered me he stated no. I also asked patient if he drank a lot of alcohol he stated no. He stated that he drinks 3 ounces of beer a day. When I asked him if he drank more than usual he stated no. He has why everyone keeps on asking him this. Patient denies any pain. He is able to give me his name. When asked location he says [facility]. Otherwise patient is able to answer questions. He asked if the temperature can be increase in the room. Dealt with his nurse. Objective Vitals Vital Signs Date Time Temp Pulse Resp B/P (MAP) Pulse Ox O2 Delivery O2 Flow Rate FiO2 05/14/17 09:27 Room Air 05/14/17 08:00 98.2 80 18 154/74 (100) 97 05/14/17 04:00 98.0 79 18 139/68 (91) 98 05/14/17 00:00 98.9 80 16 144/76 (98) 98 05/13/17 20:06 98.2 80 17 116/63 (80) 95 05/13/17 16:00 97.3 78 18 123/69 (87) 97 05/13/17 12:00 98.9 81 18 125/68 (87) 93 I/O 05/13/17 05/13/17 05/13/17 05/14/17 05/14/17 05/14/17 07:00 15:00 23:00 07:00 15:00 23:00 Intake Total 480 ml 480 ml 240 ml 480 ml Balance 480 ml 480 ml 240 ml 480 ml Intake Oral 480 ml 480 ml 240 ml 480 ml # Voids 4 3 2 4 # Bowel Movements 0 2 0 0 Result Diagram: 05/14/1752905/14/1730 Objective Remarks GENERAL: SKIN: Warm and dry. HEAD: Normocephalic. EYES: No scleral icterus. No injection or drainage. NECK: Supple, trachea midline. No JVD or lymphadenopathy. CARDIOVASCULAR: Regular rate and rhythm without murmurs, gallops, or rubs. RESPIRATORY: Breath sounds equal bilaterally. No accessory muscle use. GASTROINTESTINAL: Abdomen soft, non-tender, nondistended. MUSCULOSKELETAL: Moves all extremity. Medications and IVs Current Medications Sodium Chloride 1,000 ml @ 999 mls/hr BOLUS ONCE IV Last administered on 05/04 20:00; Start 05/04/17 at 18:15; Stop 05/04/17 at 19:15; Status DC Sodium Chloride 1,000 ml @ 999 mls/hr BOLUS ONCE IV Last administered on 05/04 18:32; Start 05/04/17 at 18:30; Stop 05/04/17 at 19:30; Status DC Calcium Gluconate 1 gm/Dextrose 110 ml @ 110 mls/hr ONCE ONCE IV Last administered on 05/04/17 21:45; Start 05/04/17 at 18:30; Stop 05/04/17 at 19:29 ; Status DC Potassium Chloride 100 ml @ 50 mls/hr STAT STAT IV Last administered on 20:01; Start 05/04/17 at 18:32; Stop 05/04/17 at 20:31; Status DC Potassium Bicarb/ Potassium Chloride (K-Lyte Cl Eff) 50 meq STAT ONCE PO ; Start 05/04/17 at 18:45; Stop 05/04/17 at 18:46; Status DC Iohexol (Omnipaque 350 Inj) 80 ml STK-MED ONCE IV PUSH Last administered on 19:09; Start 05/04/17 at 19:09; Stop 05/04/17 at 19:10; Status DC Sodium Chloride 1,000 ml @ 2,000 mls/hr Q30M ONCE IV Last administered on 05/04 21:45; Start 05/04/17 at 20:00; Stop 05/04/17 at 20:29; Status DC Potassium Chloride 40 meq/ Sodium Chloride 1,020 ml @ 150 mls/hr Q6H48M IV Last administered on 05/04/17 22:05; Start 05/04/17 at 21:00; Stop 05/05/17 at 04:04; Status DC Sodium Chloride (NS Flush) 2 ml UNSCH PRN IV FLUSH FLUSH AFTER USING IV ACCESS ; Start 05/04/17 at 20:00 Sodium Chloride (NS Flush) 2 ml BID IV FLUSH Last administered on 05/14/17 09: 20; Start 05/04/17 at 21:00 Acetaminophen (Tylenol) 650 mg Q6H PRN PO PAIN 1-10 AND/OR FEVER >101F; Start 05/04/17 at 20:00 Pantoprazole Sodium (Protonix Inj) 40 mg DAILY IV PUSH Last administered on 09:20; Start 05/05/17 at 09:00 Albuterol/ Ipratropium (Duoneb Neb) 1 ampule Q2HR NEB PRN INH WHEEZING; Start 05/04/17 at 20:00 Enoxaparin Sodium (Lovenox Inj) 30 mg Q24H SQ Last administered on 05/13/17 20 :03; Start 05/04/17 at 20:00 Miscellaneous Information 1 Q361D XX Last administered on 05/04/17 20:00; Start 05/04/17 at 20:00 Chlorhexidine Gluconate (Chlorhexidine 2% Cloth) Taper DAILY@04 TOP Last administered on 05/07/17 04:00; Start 05/05/17 at 04:00; Stop 05/01/18 at 03:59 Chlorhexidine Gluconate (Chlorhexidine 2% Cloth) 3 pack UNSCH PRN TOP HYGIENIC CARE; Start 05/04/17 at 20:00 Lactulose (Lactulose Liq) 30 ml DAILY PRN PO SEVERE CONSITIPATION Last administered on 05/12/17 19:45; Start 05/04/17 at 20:00 Ceftriaxone Sodium 1000 mg/ Sodium Chloride 100 ml @ 200 mls/hr Q24H IV Last administered on 05/11/17 20:02; Start 05/04/17 at 20:00; Stop 05/12/17 at 09:55 ; Status DC Multivitamins 10 ml/Thiamine HCl 100 mg/Folic Acid 1 mg/Dextrose/ Sodium Chloride 511.2 ml @ 125 mls/hr DAILY IV Last administered on 05/12/17 10:19; Start 05/04/17 at 21:00; Stop 05/13/17 at 10:04; Status DC Hydralazine HCl (Apresoline Inj) 20 mg Q4H PRN IV PUSH SYS BP GREATER THAN 170 MMHG; Start 05/04/17 at 20:30 Sodium Chloride 1,000 ml @ 999 mls/hr BOLUS ONCE IV Last administered on 05/04 23:47; Start 05/04/17 at 23:30; Stop 05/05/17 at 00:30; Status DC Potassium Chloride 40 meq/ Dextrose 1,020 ml @ 75 mls/hr [id number] IV Last administered on 05/07/17 19:59; Start 05/05/17 at 04:15; Stop 05/08/17 at 08:28 ; Status DC Sodium Chloride 1,000 ml @ 75 mls/hr [id number] IV Last administered on 12:38; Start 05/08/17 at 09:00; Stop 05/08/17 at 13:15; Status DC Sodium Phosphate 21 mmol/Sodium Chloride 157 ml @ 38.75 mls/ hr ONCE ONCE IV Last administered on 05/08/17 10:06; Start 05/08/17 at 08:30; Stop 05/08/17 at 12:33; Status DC Ceftriaxone Sodium 1000 mg/ Sodium Chloride 100 ml @ 200 mls/hr Q24H IV Last administered on 05/12/17 10:19; Start 05/12/17 at 11:00; Stop 05/13/17 at 10:04 ; Status DC Potassium Chloride (KCl) 40 meq ONCE ONCE PO Last administered on 05/12/17 11 :57; Start 05/12/17 at 10:30; Stop 05/12/17 at 10:31; Status DC Magnesium Oxide (Mag-Ox) 400 mg DAILY@1100 PO Last administered on 05/13/17 12 :01; Start 05/12/17 at 11:00 Lisinopril (Prinivil) 5 mg DAILY PO Last administered on 05/14/17 09:20; Start 05/13/17 at 11:00 Diphenhydramine HCl (Benadryl) 25 mg ONCE ONCE PO Last administered on 23:25; Start 05/13/17 at 21:30; Stop 05/13/17 at 21:31; Status DC A/P Problem List: (1) Severe hypernatremia (2) Severe hypokalemia (3) Severe dehydration ICD Code: E86.0 - Dehydration (4) Acute kidney failure ICD Code: N17.9 - Acute kidney failure, unspecified (5) Hypocalcemia ICD Code: E83.51 - Hypocalcemia (6) Hypomagnesemia ICD Code: E83.42 - Hypomagnesemia (7) Probable sepsis ICD Code: A41.9 - Sepsis, unspecified organism (8) Altered mental status ICD Code: R41.82 - Altered mental status, unspecified (9) Leukocytosis ICD Code: D72.829 - Elevated white blood cell count, unspecified (10) Metabolic acidosis ICD Code: E87.2 - Acidosis Assessment and Plan Acute metabolic encephalopathy Acute Metabolic Improving, continue Empiric antibiotics, no signs of infection, multiple skin lesions healing properly. - CT head was negative. Labs reviewed. Patient treated empirically with antibiotics but there are no signs of infection. -No urine drug screen was done on admission. -Patient seems back to his baseline. Patient seen by neuropsychologist and most likely has a cognitive impairment. -IV antibiotics was discontinued yesterday continues to do well off antibiotics. Respiratory insufficiency -Secondary to altered mental status. Resolved. Hypertension -controlled. Continue with home medication. Questionable Alcohol abuse -Patient has no prior visit to this hospital. Tox screen was not done during hospital admission. -He was treated empirically with Thiamine and Vitamin B12, Folate. -So far no signs of withdrawal is noted. Equivocal troponin elevation. -Asymptomatic. Most likely secondary to severe dehydration. -EF 45%. -Since patient is a poor historian with mildly reduced EF and acute renal failure resolved. Patient scheduled for nuclear stress test this morning. Congestive heart failure systolic dysfunction EF 45% -Asymptomatic. -Renal failure resolved. Continue with lisinopril. Acute renal failure -Secondary to severe dehydration. Resolved. Hypernatremia -Secondary to severe dehydration. Resolved. Wounds -Secondary to prolonged sedation. Infection. DC IV antibiotics. Healing well. paraphimosis -Reduced by urologist. Per urologist can follow-up when necessary. Hypokalemia/hypomagnesemia -Secondary to severe dehydration. Resolved. Discharge Planning If nuclear stress test is negative patient is medically stable for discharge. Dealt with case management regards to this and he is a difficult placement. Patient has no family members around but does have a healthcare proxy. Problem Qualifiers (1) Acute kidney failure: Qualified Codes: N17.9 - Acute kidney failure, unspecified (2) Altered mental status: Qualified Codes: R41.82 - Altered mental status, unspecified (3) Leukocytosis: Qualified Codes: D72.829 - Elevated white blood cell count, unspecified Atiya Arambula MD May 14, 2017 10:28
--- NOTE | 2017-05-14 11:38 | HHI.PR ---
Neuropsych Emotional Emotional: Intact: Emotional, Anxious/Fearful, Depressed/Sad, Hostile/Resentful , Irritable/Angry/Frustrate, Labile, Constricted/Blunted Behavior Behavior: Intact: Behavior, Coping/Acceptance, Cooperative w/ Treatment, Motivation, Frustration Tolerance/[place], Impulsive/Agitated, Suicidal/Homicidal Risk Cognitive Cognitive: Moderate: Cognitive, Attention/Concentration, Confused/Orientation, Insight/Awareness, Judgement/Problem-Solving, Memory Psychosocial Psychosocial: Severe: Psychosocial, Family/Other Adjustment, Realistic Expectation, Unable to Asses: Self-Esteem/Confidence Progress Notes/Response to Tx Contents of Sessions: Adjustment Time with Patient: 30 minutes Premorbid psychological status Premorbid Cognitive, Emotional and Behavioral Status: Stable. 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 The patient has no known psychiatric difficulties, as described above. Substance abuse history includes alcohol dependence. Behavioral Reactions of Patient and Family/Support System: Unable to Assess. The patient has no family. Emotional/Behavioral Status of Patient and Family/Support System: Unable to Assess. Pertinent issues, if appropriate to this patients clinical care, are described in detail above. Maximizing acute care outcome It is recommended that the patient be monitored for emergent behavioral impulsivity as the medical condition evolves. This patients neuropathological challenges may limit their rehabilitation potential going forward, and these challenges will require specialized therapeutic skills to maximize outcome. Anticipated Problems Ongoing areas of concern will include behavioral impulsivity, lack of insight and judgment, which is expected to improve with time and treatment. Presently , the patient is following only one-step commands. Treatment Plan This clinician will continue to follow with you throughout the course of this patients rehabilitation treatment, and I will be available to meet with the patients family/support system to facilitate their understanding and the ongoing care of their family member. The goals of neuropsychological intervention shall be both educational and supportive to the family/support system as is deemed clinically appropriate. Impression This unknown aged (possibly 80s) man was found unconscious lying in his home for over seven days, in a dehydrated and malnourished state, and continues to show persistent neurocognitive deficits. 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 His , and he has been living alone; he has no children. His medical history is unknown. There is a strong suspicion of alcohol dependence and underlying unresolved clinical depression. Diagnostically, I would infer a delirium due to multiple causes superimposed on an underlying alcohol-related dementia, and confounded by clinical depression. 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 The patient is improving neurocognitively. He is alert and orient to person, year and he knows that he is in a hospital. He is more conversant, logical thought processes and is compliant. I will continue to follow. Prince Espitia PhD May 14, 2017 11:38 am
[2017-05-14] MEDS: MAGNESIUM OXIDE 400 MG TAB PO SCH (12:03)
[2017-05-14 13:00] VITALS: BP 146/77; PULSE 77; RESP 18; TEMP 97.1; O2SAT 97
[2017-05-14] MEDS ORDERED: LORazepam 2 MG/ML VIAL IV PUSH ONE (13:30)
[2017-05-14] MEDS ORDERED: REGADENOSON INJ 0.4 MG/5 ML SYR ONE (13:55)
--- NOTE | 2017-05-14 15:57 | RADRPT ---
EXAM DATE/TIME: 05/14/2017 12:27 [facility] COMPARISON: No previous studies available for comparison. INDICATIONS : Ischemic heart disease. Angina. DOSE: 25.6 mCi Tc99m Myoview at stress. 8.7 mCi Tc99m Myoview at rest. 0.4 mg Lexiscan STRESS SYMPTOMS: Shortness of breath. EJECTION FRACTION: > 70% MEDICAL HISTORY : Renal failure, acute. SURGICAL HISTORY : None. ENCOUNTER: Initial ACUITY: 1 week PAIN SCALE: 0/10 LOCATION: chest TECHNIQUE: The patient underwent pharmacologic stress with infusion of prescribed dose. Continuous ECG tracing was monitored during stress. Gated SPECT imaging was performed after stress and conventional SPECT i maging was performed at rest. The examination was performed on a SPECT/CT scanner, both attenuation and non-corrected datasets were reviewed. FINDINGS: DISTRIBUTION: The maximum perfused segment at stress is in the anterior wall. PERFUSION STUDY: The pattern of perfusion at stress is within normal limits. GATED STUDY: There is intact wall motion and thickening without hypokinetic or dyskinetic segments. CONCLUSION: Normal examination. RISK CATEGORY: Low (<1% Annual Mortality Rate) Edgar Crowley MD on May 14, 2017 at 15:28 Board Certified Radiologist. This report was verified electronically.
[2017-05-14 20:00] VITALS: BP 109/65; PULSE 73; RESP 18; TEMP 97; O2SAT 98
[2017-05-14] MEDS: ENOXAPARIN SODIUM 30 MG/0.3 ML SYRINGE SQ SCH (20:13)
[2017-05-15] VITALS: BP 141/71; PULSE 80; RESP 20; TEMP 98.5; O2SAT 97
[2017-05-15] MEDS: CHLORHEXIDINE GLUCONATE 2 % 1 PACK (2 CLOTHS) TOP SCH (04:00)
[2017-05-15 08:00] VITALS: BP 127/75; PULSE 79; RESP 19; TEMP 97; O2SAT 96
[2017-05-15] MEDS: SODIUM CHLORIDE 0.9% FLUSH 10 ML FLUSH IV FLUSH SCH ×2 (09:00→19:58)
[2017-05-15] MEDS: PANTOPRAZOLE SODIUM 40 MG VIAL IV PUSH SCH (09:00)
[2017-05-15] MEDS: LISINOPRIL 5 MG TAB PO SCH (09:00)
[2017-05-15 12:00] VITALS: BP 126/80; PULSE 80; RESP 19; TEMP 97.4; O2SAT 96
[2017-05-15] MEDS ORDERED: LISI-519 PO (12:44)
[2017-05-15] MEDS ORDERED: MAGN400T3 PO (12:44)
--- NOTE | 2017-05-15 12:44 | HHI.PR ---
Neuropsych Behavior Behavior: Intact: Coping/Acceptance, Cooperative w/ Treatment, Mild: Behavior Cognitive Cognitive: Severe: Cognitive, Attention/Concentration, Confused/Orientation, Insight/Awareness, Judgement/Problem-Solving, Memory Psychosocial Psychosocial: Severe: Psychosocial, Family/Other Adjustment, Realistic Expectation, Self-Esteem/Confidence Progress Notes/Response to Tx Contents of Sessions: Adjustment Time with Patient: 15 minutes Premorbid psychological status Premorbid Cognitive, Emotional and Behavioral Status: Stable. 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 The patient has no known psychiatric difficulties, as described above. Substance abuse history includes alcohol dependence. Behavioral Reactions of Patient and Family/Support System: Unable to Assess. The patient has no family. Emotional/Behavioral Status of Patient and Family/Support System: Unable to Assess. Pertinent issues, if appropriate to this patients clinical care, are described in detail above. Maximizing acute care outcome It is recommended that the patient be monitored for emergent behavioral impulsivity as the medical condition evolves. This patients neuropathological challenges may limit their rehabilitation potential going forward, and these challenges will require specialized therapeutic skills to maximize outcome. Anticipated Problems Ongoing areas of concern will include behavioral impulsivity, lack of insight and judgment, which is expected to improve with time and treatment. Presently , the patient is following only one-step commands. Treatment Plan This clinician will continue to follow with you throughout the course of this patients rehabilitation treatment, and I will be available to meet with the patients family/support system to facilitate their understanding and the ongoing care of their family member. The goals of neuropsychological intervention shall be both educational and supportive to the family/support system as is deemed clinically appropriate. Impression This unknown aged (possibly 80s) man was found unconscious lying in his home for over seven days, in a dehydrated and malnourished state, and continues to show persistent neurocognitive deficits. 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 His , and he has been living alone; he has no children. His medical history is unknown. There is a strong suspicion of alcohol dependence and underlying unresolved clinical depression. Diagnostically, I would infer a delirium due to multiple causes superimposed on an underlying alcohol-related dementia, and confounded by clinical depression. Diagnosis: (1) Delirium due to multiple etiologies Status: Resolved (2) Alcohol dependence with alcohol-induced persisting dementia Status: Chronic (3) Major depressive disorder, recurrent Progress Note Narrative Ongoing follow-up of patient seen bedside. The patient was much more lethargic and confused today compared to yesterday. Today he was not oriented to year, place or circumstance. I will continue to follow. Prince Espitia PhD May 15, 2017 12:44 pm
--- NOTE | 2017-05-15 12:46 | HHI.DS ---
Discharge Summary Admission Date May 04, 2017 at 20:08 Discharge Date: May 15, 2017 Admitting Diagnosis (1) Severe hypernatremia Diagnosis: Principal (2) Severe hypokalemia Diagnosis: Principal (3) Severe dehydration ICD Code: E86.0 - Dehydration Diagnosis: Principal (4) Acute kidney failure ICD Code: N17.9 - Acute kidney failure, unspecified Diagnosis: Principal (5) Hypocalcemia ICD Code: E83.51 - Hypocalcemia Diagnosis: Principal (6) Hypomagnesemia ICD Code: E83.42 - Hypomagnesemia Diagnosis: Principal (7) Probable sepsis ICD Code: A41.9 - Sepsis, unspecified organism Diagnosis: Principal (8) Altered mental status ICD Code: R41.82 - Altered mental status, unspecified Diagnosis: Principal (9) Leukocytosis ICD Code: D72.829 - Elevated white blood cell count, unspecified Diagnosis: Principal (10) Metabolic acidosis ICD Code: E87.2 - Acidosis Diagnosis: Principal Procedures See hospital course. Brief History - From Admission Patient is an elderly chronically ill-appearing male who was brought in by EMS after neighbors noticed that his garbage had been accumulating. EMS found him lying prone on carpet probably been down for 7-8 days, he was found in his own feces and urine. He had extensive skin break down is on disability and was very dehydrated, and he lives alone. CT of the head and C-spine was negative. Lab work showed multiple critical abnormalities BUN 66, Creat 1.46, Calcium 5.6, Na 163, K 2.3, Bicarb 15.6, and trop 0.2. White count was elevated at 14.7 with left shift. Critical care was consulted for admission I CBC/BMP: 05/14/17 0530 05/14/17 0530 Significant Findings Laboratory Tests Test 05/14/17 05:30 Red Blood Count 2.67 MIL/MM3 (4.50-5.90) Hemoglobin 9.6 GM/DL (13.0-17.0) Hematocrit 28.1 % (39.0-51.0) Mean Corpuscular Volume 105.2 FL (80.0-100.0) Mean Corpuscular Hemoglobin 35.9 PG (27.0-34.0) Random Glucose 108 MG/DL (74-106) Calcium Level 7.9 MG/DL (8.5-10.1) Potassium Level 3.4 MEQ/L (3.5-5.1) Estimat Glomerular Filtration Rate 83 ML/MIN (>89) Imaging Last Impressions Myocardial Perfusion Scan Nuc Med 05/14/17 0000 Signed Impressions: Service Date/Time: Sunday, May 14, 2017 12:27 - CONCLUSION: Normal examination. RISK CATEGORY: Low (<1%% Annual Mortality Rate) Edgar Crowley MD Maxillofacial CT [id number]/04/[id number] Signed Impressions: Service Date/Time: Thursday, May 04, 2017 18:46 - CONCLUSION: Intact facial bones. Mild, chronic-appearing maxillary sinusitis. Edgar Bae MD Head CT [id number]/04/171720 Signed Impressions: Service Date/Time: Thursday, May 04, 2017 18:46 - CONCLUSION: No acute intracranial abnormality. Chronic white matter changes. Edgar Bae MD Chest CT 05/04/171720 Signed Impressions: Service Date/Time: Thursday, May 04, 2017 18:54 - CONCLUSION: No evidence of acute thoracic injury. Trace left base atelectasis. Coronary artery calcification. Edgar Bae MD Cervical Spine CT 05/04/171720 Signed Impressions: Service Date/Time: Thursday, May 04, 2017 18:46 - CONCLUSION: Severe multilevel degenerative changes. No fracture or subluxation of the cervical spine. Edgar Bae MD Abdomen/Pelvis CT 05/04/171720 Signed Impressions: Service Date/Time: Thursday, May 04, 2017 18:54 - CONCLUSION: 1. No evidence of acute injury of the abdomen or pelvis. 2. Mild fatty infiltration of the liver. Edgar Bae MD PE at Discharge GENERAL: SKIN: Warm and dry. HEAD: Normocephalic. EYES: No scleral icterus. No injection or drainage. NECK: Supple, trachea midline. No JVD or lymphadenopathy. CARDIOVASCULAR: Regular rate and rhythm without murmurs, gallops, or rubs. RESPIRATORY: Breath sounds equal bilaterally. No accessory muscle use. GASTROINTESTINAL: Abdomen soft, non-tender, nondistended. MUSCULOSKELETAL: Moves all extremity. Pt update on day of discharge Follow up for altered mental status and dementia Patient stated that he still confused why he was found down for many days. He stated he wanted to answer. He denies any pain. Denies any shortness of breathing or chest pain. When I asked patient that there was suspicion that may be due to alcohol he stated "did you check a lab to confirm that?" Otherwise he has no other complaints. Dealt with case management regards to the patient's discharge. Since patient is medically stable. Hospital Course Acute metabolic encephalopathy Acute Metabolic Improving, continue Empiric antibiotics, no signs of infection, multiple skin lesions healing properly. - CT head was negative. Labs reviewed. Patient treated empirically with antibiotics but there are no signs of infection. -No urine drug screen was done on admission. -Patient was back to his baseline during the latter part of his hospitalization. Patient seen by neuropsychologist and most likely has a cognitive impairment. -IV antibiotics was discontinued since there were no signs of infection and he did well off of IV antibiotics. Respiratory insufficiency -Secondary to altered mental status. Resolved with IV fluids. Hypertension -controlled. Continue with home medication. Questionable Alcohol abuse -Patient has no prior visit to this hospital. Tox screen was not done during hospital admission. -He was treated empirically with Thiamine and Vitamin B12, Folate. -No signs of withdrawal during his hospitalization. Equivocal troponin elevation. -Asymptomatic. Most likely secondary to severe dehydration. -EF 45%. -Nuclear stress test negative. Congestive heart failure systolic dysfunction EF 45% -Asymptomatic. -Renal failure resolved. Continue with lisinopril. Acute renal failure -Secondary to severe dehydration. Resolved with IV fluids. Hypernatremia -Secondary to severe dehydration. Resolved with IV fluids. Wounds -Secondary to prolonged sedation. Initially treated with IV antibiotics but infection resolved that was discontinued when his wounds continued to heal well. paraphimosis -Reduced by urologist. Per urologist can follow-up when necessary. Hypokalemia/hypomagnesemia -Secondary to severe dehydration. Resolved. Palliative care was consulted during this hospitalization since patient was a poor historian and did not have any family members around. His neighbor was appointed his healthcare proxy. Pt Condition on Discharge: Stable Discharge Disposition: Discharge to SNF Discharge Time: <= 30 minutes Discharge Instructions DIET: Follow Instructions for: Heart Healthy Diet Activities you can perform: Regular-No Restrictions Follow up Referrals: SNF/[facility]/ - Daily New Medications: Lisinopril (Lisinopril) 5 Mg Tab 5 MG PO DAILY for hypertension, #30 TAB 0 Refills Magnesium Oxide (Magnesium Oxide) 400 Mg Tab 400 MG PO DAILY@1100 for low magnesium level, #30 TAB 0 Refills Atiya Arambula MD May 15, 2017 12:45
[2017-05-15] MEDS: MAGNESIUM OXIDE 400 MG TAB PO SCH (14:48)
[2017-05-15 15:25] VITALS: BP 109/52; PULSE 80; RESP 19; TEMP 97; O2SAT 96
[2017-05-15 18:34] VITALS: O2SAT 96
[2017-05-15 19:00] VITALS: BP 118/64; PULSE 84; RESP 18; TEMP 96.8
[2017-05-15] MEDS: ENOXAPARIN SODIUM 30 MG/0.3 ML SYRINGE SQ SCH (19:58)
[2017-05-16] VITALS: BP 108/60; PULSE 79; RESP 15; TEMP 98.3; O2SAT 96
[2017-05-16] MEDS: ACETAMINOPHEN 325 MG TAB PO PRN ×2 (03:35→08:35)
[2017-05-16] MEDS: CHLORHEXIDINE GLUCONATE 2 % 1 PACK (2 CLOTHS) TOP SCH (04:00)
[2017-05-16 08:00] VITALS: BP 137/85; PULSE 78; RESP 18; TEMP 98; O2SAT 95
[2017-05-16] MEDS: LISINOPRIL 5 MG TAB PO SCH (08:33)
[2017-05-16] MEDS: PANTOPRAZOLE SODIUM 40 MG VIAL IV PUSH SCH (08:33)
[2017-05-16] MEDS: MAGNESIUM OXIDE 400 MG TAB PO SCH (08:33)
[2017-05-16] MEDS: SODIUM CHLORIDE 0.9% FLUSH 10 ML FLUSH IV FLUSH SCH (08:36)
[2017-05-16 09:21] VITALS: O2SAT 96
[2017-05-16 12:00] VITALS: BP 109/69; PULSE 78; RESP 18; TEMP 98.2; O2SAT 97
--- NOTE | 2017-05-16 13:12 | HHI.PR ---
Subjective Remarks Follow up for placement Patient seen with physical therapist at the bedside. Patient stated that he is very weak and needs some young people to help him get to his mailbox so he can pay his bills in 2 weeks and that this is his priority. Otherwise he has no other complaints. Objective Vitals Vital Signs Date Time Temp Pulse Resp B/P (MAP) Pulse Ox O2 Delivery O2 Flow Rate FiO2 05/16/17 09:52 16 05/16/17 09:21 96 05/16/17 08:00 98.0 78 18 137/85 (102) 95 05/16/17 00:00 98.3 79 15 108/60 (76) 96 05/15/17 20:00 96 Room Air 05/15/17 19:00 96.8 84 18 118/64 (82) 05/15/17 18:34 96 05/15/17 15:25 97.0 80 19 109/52 (71) 96 I/O 05/15/17 05/15/17 05/15/17 05/16/17 05/16/17 05/16/17 07:00 15:00 23:00 07:00 15:00 23:00 Intake Total 220 ml 800 ml 480 ml 240 ml Output Total 400 ml 500 ml 600 ml 600 ml Balance -180 ml 300 ml -120 ml -360 ml Intake Oral 220 ml 800 ml 480 ml 240 ml Output Urine Total 400 ml 500 ml 600 ml 600 ml # Voids 2 # Bowel Movements 0 1 0 2 Result Diagram: 05/14/17 0530 05/14/17 0530 Objective Remarks GENERAL: SKIN: Warm and dry. HEAD: Normocephalic. EYES: No scleral icterus. No injection or drainage. NECK: Supple, trachea midline. No JVD or lymphadenopathy. CARDIOVASCULAR: Regular rate and rhythm without murmurs, gallops, or rubs. RESPIRATORY: Breath sounds equal bilaterally. No accessory muscle use. GASTROINTESTINAL: Abdomen soft, non-tender, nondistended. MUSCULOSKELETAL: Moves all extremity. Medications and IVs Current Medications Sodium Chloride 1,000 ml @ 999 mls/hr BOLUS ONCE IV Last administered on 05/04 20:00; Start 05/04/17 at 18:15; Stop 05/04/17 at 19:15; Status DC Sodium Chloride 1,000 ml @ 999 mls/hr BOLUS ONCE IV Last administered on 05/04 18:32; Start 05/04/17 at 18:30; Stop 05/04/17 at 19:30; Status DC Calcium Gluconate 1 gm/Dextrose 110 ml @ 110 mls/hr ONCE ONCE IV Last administered on 05/04/17 21:45; Start 05/04/17 at 18:30; Stop 05/04/17 at 19:29 ; Status DC Potassium Chloride 100 ml @ 50 mls/hr STAT STAT IV Last administered on 20:01; Start 05/04/17 at 18:32; Stop 05/04/17 at 20:31; Status DC Potassium Bicarb/ Potassium Chloride (K-Lyte Cl Eff) 50 meq STAT ONCE PO ; Start 05/04/17 at 18:45; Stop 05/04/17 at 18:46; Status DC Iohexol (Omnipaque 350 Inj) 80 ml STK-MED ONCE IV PUSH Last administered on 19:09; Start 05/04/17 at 19:09; Stop 05/04/17 at 19:10; Status DC Sodium Chloride 1,000 ml @ 2,000 mls/hr Q30M ONCE IV Last administered on 05/04 21:45; Start 05/04/17 at 20:00; Stop 05/04/17 at 20:29; Status DC Potassium Chloride 40 meq/ Sodium Chloride 1,020 ml @ 150 mls/hr Q6H48M IV Last administered on 05/04/17 22:05; Start 05/04/17 at 21:00; Stop 05/05/17 at 04:04; Status DC Sodium Chloride (NS Flush) 2 ml UNSCH PRN IV FLUSH FLUSH AFTER USING IV ACCESS ; Start 05/04/17 at 20:00 Sodium Chloride (NS Flush) 2 ml BID IV FLUSH Last administered on 05/16/17 08: 36; Start 05/04/17 at 21:00 Acetaminophen (Tylenol) 650 mg Q6H PRN PO PAIN 1-10 AND/OR FEVER >101F Last administered on 05/16/17 08:35; Start 05/04/17 at 20:00 Pantoprazole Sodium (Protonix Inj) 40 mg DAILY IV PUSH Last administered on 08:33; Start 05/05/17 at 09:00 Albuterol/ Ipratropium (Duoneb Neb) 1 ampule Q2HR NEB PRN INH WHEEZING; Start 05/04/17 at 20:00 Enoxaparin Sodium (Lovenox Inj) 30 mg Q24H SQ Last administered on 05/15/17 19 :58; Start 05/04/17 at 20:00 Miscellaneous Information 1 [id number] Last administered on 05/04/17 20:00; Start 05/04/17 at 20:00 Chlorhexidine Gluconate (Chlorhexidine 2% Cloth) Taper DAILY@04 TOP Last administered on 05/07/17 04:00; Start 05/05/17 at 04:00; Stop 05/01/18 at 03:59 Chlorhexidine Gluconate (Chlorhexidine 2% Cloth) 3 pack UNSCH PRN TOP HYGIENIC CARE; Start 05/04/17 at 20:00 Lactulose (Lactulose Liq) 30 ml DAILY PRN PO SEVERE CONSITIPATION Last administered on 05/12/17 19:45; Start 05/04/17 at 20:00 Ceftriaxone Sodium 1000 mg/ Sodium Chloride 100 ml @ 200 mls/hr Q24H IV Last administered on 05/11/17 20:02; Start 05/04/17 at 20:00; Stop 05/12/17 at 09:55 ; Status DC Multivitamins 10 ml/Thiamine HCl 100 mg/Folic Acid 1 mg/Dextrose/ Sodium Chloride 511.2 ml @ 125 mls/hr DAILY IV Last administered on 05/12/17 10:19; Start 05/04/17 at 21:00; Stop 05/13/17 at 10:04; Status DC Hydralazine HCl (Apresoline Inj) 20 mg Q4H PRN IV PUSH SYS BP GREATER THAN 170 MMHG; Start 05/04/17 at 20:30 Sodium Chloride 1,000 ml @ 999 mls/hr BOLUS ONCE IV Last administered on 05/04 23:47; Start 05/04/17 at 23:30; Stop 05/05/17 at 00:30; Status DC Potassium Chloride 40 meq/ Dextrose 1,020 ml @ 75 mls/hr [id number] IV Last administered on 05/07/17 19:59; Start 05/05/17 at 04:15; Stop 05/08/17 at 08:28 ; Status DC Sodium Chloride 1,000 ml @ 75 mls/hr [id number] IV Last administered on 12:38; Start 05/08/17 at 09:00; Stop 05/08/17 at 13:15; Status DC Sodium Phosphate 21 mmol/Sodium Chloride 157 ml @ 38.75 mls/ hr ONCE ONCE IV Last administered on 05/08/17 10:06; Start 05/08/17 at 08:30; Stop 05/08/17 at 12:33; Status DC Ceftriaxone Sodium 1000 mg/ Sodium Chloride 100 ml @ 200 mls/hr Q24H IV Last administered on 05/12/17 10:19; Start 05/12/17 at 11:00; Stop 05/13/17 at 10:04 ; Status DC Potassium Chloride (KCl) 40 meq ONCE ONCE PO Last administered on 05/12/17 11 :57; Start 05/12/17 at 10:30; Stop 05/12/17 at 10:31; Status DC Magnesium Oxide (Mag-Ox) 400 mg DAILY@1100 PO Last administered on 05/16/17 08 :33; Start 05/12/17 at 11:00 Lisinopril (Prinivil) 5 mg DAILY PO Last administered on 05/16/17 08:33; Start 05/13/17 at 11:00 Diphenhydramine HCl (Benadryl) 25 mg ONCE ONCE PO Last administered on 23:25; Start 05/13/17 at 21:30; Stop 05/13/17 at 21:31; Status DC Lorazepam (Ativan Inj) 1 mg ONCE ONCE IV PUSH ; Start 05/14/17 at 13:30; Stop 05/14/17 at 13:31; Status DC Regadenoson (Lexiscan Inj) 0.4 mg STK-MED ONCE .ROUTE Last administered on 05/14 13:55; Start 05/14/17 at 13:55; Stop 05/14/17 at 13:56; Status DC A/P Problem List: (1) Severe hypernatremia (2) Severe hypokalemia (3) Severe dehydration ICD Code: E86.0 - Dehydration (4) Acute kidney failure ICD Code: N17.9 - Acute kidney failure, unspecified (5) Hypocalcemia ICD Code: E83.51 - Hypocalcemia (6) Hypomagnesemia ICD Code: E83.42 - Hypomagnesemia (7) Probable sepsis ICD Code: A41.9 - Sepsis, unspecified organism (8) Altered mental status ICD Code: R41.82 - Altered mental status, unspecified (9) Leukocytosis ICD Code: D72.829 - Elevated white blood cell count, unspecified (10) Metabolic acidosis ICD Code: E87.2 - Acidosis Assessment and Plan Acute metabolic encephalopathy Acute Metabolic Improving, continue Empiric antibiotics, no signs of infection, multiple skin lesions healing properly. - CT head was negative. Labs reviewed. Patient treated empirically with antibiotics but there are no signs of infection. -No urine drug screen was done on admission. -Patient seems back to his baseline. Patient seen by neuropsychologist and most likely has a cognitive impairment. -IV antibiotics was discontinued yesterday continues to do well off antibiotics. Respiratory insufficiency -Secondary to altered mental status. Resolved. Hypertension -controlled. Continue with home medication. Questionable Alcohol abuse -Patient has no prior visit to this hospital. Tox screen was not done during hospital admission. -He was treated empirically with Thiamine and Vitamin B12, Folate. -So far no signs of withdrawal is noted. Equivocal troponin elevation. -Asymptomatic. Most likely secondary to severe dehydration. -EF 45%. -Since patient is a poor historian with mildly reduced EF and acute renal failure resolved. Patient scheduled for nuclear stress test this morning. Congestive heart failure systolic dysfunction EF 45% -Asymptomatic. -Renal failure resolved. Continue with lisinopril. Acute renal failure -Secondary to severe dehydration. Resolved. Hypernatremia -Secondary to severe dehydration. Resolved. Wounds -Secondary to prolonged sedation. Infection. DC IV antibiotics. Healing well. paraphimosis -Reduced by urologist. Per urologist can follow-up when necessary. Hypokalemia/hypomagnesemia -Secondary to severe dehydration. Resolved. Discharge Planning Patient is medically clear for discharge and he is waiting for placement. Will see if case management can help them in regards to obtaining his bills. Problem Qualifiers (1) Acute kidney failure: Qualified Codes: N17.9 - Acute kidney failure, unspecified (2) Altered mental status: Qualified Codes: R41.82 - Altered mental status, unspecified (3) Leukocytosis: Qualified Codes: D72.829 - Elevated white blood cell count, unspecified Atiya Arambula MD May 16, 2017 13:12
== END 2017-05-16 17:53 | DRG 871 ==
LOC: NEPE 16:36 → EDBD 20:08 → NEDA 20:08 → HCVR 22:27 → HCIS 05-08 07:30 → N06A 05-09 23:47
PROVIDERS: ADMIT Family Medicine; ATTEND Family Medicine
DX: A41.9 Sepsis, unspecified organism (principal); G93.41 Metabolic encephalopathy; N17.9 Acute kidney failure, unspecified; E87.0 Hyperosmolality and hypernatremia; M62.82 Rhabdomyolysis; E83.42 Hypomagnesemia; I11.0 Hypertensive heart disease with heart failure; I50.20 Unspecified systolic (congestive) heart failure; E46 Unspecified protein-calorie malnutrition; E87.2 Acidosis; F05 Delirium due to known physiological condition; F10.27 Alcohol dependence with alcohol-induced persisting dementia; F33.9 Major depressive disorder, recurrent, unspecified; E86.0 Dehydration; E83.51 Hypocalcemia; I27.2 Other secondary pulmonary hypertension; E87.6 Hypokalemia; K76.0 Fatty (change of) liver, not elsewhere classified; I08.1 Rheumatic disorders of both mitral and tricuspid valves; N47.2 Paraphimosis; E87.5 Hyperkalemia; R73.9 Hyperglycemia, unspecified; Z66 Do not resuscitate; S80.212A Abrasion, left knee, initial encounter; S80.211A Abrasion, right knee, initial encounter; S00.81XA Abrasion of other part of head, initial encounter; S20.312A Abrasion of left front wall of thorax, initial encounter; S20.311A Abrasion of right front wall of thorax, initial encounter; S30.811A Abrasion of abdominal wall, initial encounter; W19.XXXA Unspecified fall, initial encounter; Y92.239 Unspecified place in hospital as the place of occurrence of the external cause
CPT/HCPCS: 70450; 70486; 71260; 72125; 74177; 76937; 78452; 80048; 80053; 81001; 82550; 82607; 82747; 83036; 83605; 83735; 84100; 84155; 84295; 84443; 84484; 85007; 85025; 85027; 85610; 85730; 87040; 87086; 87641; 93005; 93017; 93306; 96360; A9502; C9113; J0610; J0696; J1650; J2785; J3411; J3480; J7030; J7042; J7070; Q9967